=== PATIENT | female | born 1940 | race African-American/Black ===

== ENCOUNTER → 2017-05-12 | Outpatient (CLI) | payer OTHER, MEDICARE | END | disposition home or self-care (01) | LOC: MAMMO 07:50 | DX: Z12.31 Encounter for screening mammogram for malignant neoplasm of breast (principal) | CPT/HCPCS: 77067 ==

== ENCOUNTER → 2018-05-13 | Outpatient (CLI) | payer MEDICARE, OTHER ==
[2017-01-14 15:00] VITALS: BP 150/75
[~2018-05-13] MED LIST: AMLO10TA4 PO; ASPI-630 PO; ATOR10TA PO; CALC500T54 PO; CYAN50TA PO; KORE100C PO; LACT1TAB3 PO; LEVO100T5 PO; LOSA1TAB22 PO; METF500T16 PO; MULT-246 PO; OMEG300C PO; OXYB5TAB7 PO; PANT40TA3 PO; SENN-37 PO
--- NOTE | 2018-05-17 09:28 | RAD ---
DATE: 05/13/2018 10:00 AM EXAM: MAMMO BLADIMIR SCREENING BILATERAL HISTORY: routine screening evaluation. COMPARISON: Prior mammographic imaging dating back to 04/21/2014 Bilateral CC and MLO views of the breasts were performed. Bilateral breast tomosynthesis was performed in CC and MLO projections. This study was interpreted with the benefit of Computerized Aided Detection (CAD ). Breast Density: The breast parenchyma shows scattered fibroglandular densities. Breast parenchyma level B. FINDINGS: The parenchymal pattern appears stable. Benign calcifications are present. No suspicious masses, microcalcifications or architectural distortion is present to suggest malignancy in either breast. The visualized axillae are unremarkable. IMPRESSION: No mammographic evidence of malignancy. BI-RADS CATEGORY: 2 BENIGN FINDING(S) RECOMMENDED FOLLOW-UP: 12M 12 MONTH FOLLOW-UP Annual screening mammography is recommended, unless clinically indicated sooner based on symptoms or change in physical exam. PQRS compliance statement: Patient information was entered into a reminder system with a target due date for the next mammogram. Mammography is a sensitive method for finding small breast cancers, but it does not detect them all and is not a substitute for careful clinical examination. A negative mammogram does not negate a clinically suspicious finding and should not result in delay in biopsying a clinically suspicious abnormality. "Our facility is accredited by the [employer] Mammography Program." SUNNYD
== END | disposition home or self-care (01) ==
LOC: MAMMO 07:57
PROVIDERS: ATTEND Family Medicine
DX: Z12.31 Encounter for screening mammogram for malignant neoplasm of breast (principal)
CPT/HCPCS: 77063; 77067

== ENCOUNTER 2018-06-24 12:29 | Inpatient (IN) | payer MEDICARE, OTHER ==
[~2018-06-24] VITALS: Ht 165.1 cm; Wt 89.0 kg
[2018-06-24] MEDS ORDERED: ASPIRIN 325 MG TABLET PO ONE (13:00)
[2018-06-24 13:02] LABS: BILIRUBIN,URINE NEGATIVE (NEG); CLARITY,URINE CLEAR; COLOR,URINE YELLOW; NITRITE,URINE NEGATIVE (NEG); PROTEIN,URINE NEGATIVE (NEG-TRACE); UROBILINOGEN,URINE 0.2 mg/dL (0.2 mg/dL)
[2018-06-24 13:07] LABS: BARBITURATES NEG (NEG); BENZODIAZEPINES NEG (NEG); CANNABINOIDS NEG (NEG); COCAINE NEG (NEG); METHADONE NEG (NEG); OPIATES NEG (NEG); PHENCYCLIDINE NEG (NEG)
[2018-06-24 13:09] LABS: AMPHETAMINE/METHAMPHETAMINE NEG (NEG)
[2018-06-24 13:18] LABS: BASO % 1 % (0-3); EOS # 0.1 x10^3/uL (0.0-0.7); EOS % 2 % (0-3); HEMATOCRIT 39.6 % (36.0-47.0); HEMOGLOBIN 12.8 g/dL (12.0-15.5); LYMPH # 2.1 x10^3/uL (1.0-4.8); LYMPH % 38 % (24-48); MEAN CORPUSCULAR HEMOGLOBIN 27 pg (25-35); MEAN CORPUSCULAR HGB CONC 32 g/dL (31-37); MEAN CORPUSCULAR VOLUME 82 fL (79-100); MONO # 0.4 x10^3/uL (0.0-1.1); MONO % 7 % (0-9); NEUT # 2.9 x10^3uL (1.8-7.7); NEUT % 53 % (31-73); PLATELET COUNT 209 x10^3/uL (140-400); RED BLOOD COUNT 4.82 x10^6/uL (3.50-5.40); RED CELL DISTRIBUTION WIDTH 14.2 % (11.5-14.5); WHITE BLOOD COUNT 5.5 x10^3/uL (4.0-11.0)
--- NOTE | 2018-06-24 13:24 | PHYS DOC ---
Past Medical History Past Medical History: Diabetes-Type II, Hypertension, Hypothyroid (ANNABELLE NATH APRN) Past Surgical History: Hysterectomy, Other Additional Past Surgical Histo: thyroidectomy; hemorrhoidectomy (ANNABELLE NATH APRN) Alcohol Use: None Drug Use: None (ANNABELLE NATH APRN) Adult General Chief Complaint Chief Complaint: CHEST PAIN HPI HPI Patient is a 78 year old female with history of diabetes type 2, hypertension, hypothyroidism, who presents to the ED today complaining of chest discomfort. Patient [place] the [place]. She states before lunch and after lunch she developed a sensation of chest discomfort described as "you know how you feel when you climb a hill" ..."shortness of air". Patient unable to write her chest discomfort. From her description it sounds like symptoms are worse on exertion. Denies any fever, coughing or congestion. PCP Dr. Vaca (ANNABELLE NATH APRN) Review of Systems Review of Systems Constitutional: Denies fever or chills [] Eyes: Denies change in visual acuity, redness, or eye pain [] HENT: Denies nasal congestion or sore throat [] Respiratory: Denies cough or shortness of breath [] Cardiovascular: Reports chest discomfort GI: Denies abdominal pain, nausea, vomiting, bloody stools or diarrhea [] : Denies dysuria or hematuria [] Musculoskeletal: Denies back pain or joint pain [] Integument: Denies rash or skin lesions [] Neurologic: Denies headache, focal weakness or sensory changes [] All other systems were reviewed and found to be within normal limits, except as documented in this note. (ANNABELLE NATH APRN) Current Medications Current Medications Current Medications Medications (Trade) Dose Ordered Sig/Wood Start Time Stop Time Status Last Admin Dose Admin Aspirin (Angel Aspirin) 325 mg 1X ONCE 06/24/18 13:00 06/24/18 13:01 Cancel Aspirin (Children'S Aspirin) 162 mg 1X ONCE 06/24/18 14:00 06/24/18 14:04 DC 06/24/18 14:07 162 MG (JAMIN BAXTER MD) Allergies Allergies Allergies Coded Allergies Type Severity Reaction Last Updated Verified Cephalexin Monohydrate Allergy Intermediate Rash 01/29/15 Yes Penicillins Allergy Intermediate Rash 01/29/15 Yes (JAMIN BAXTER MD) Physical Exam Physical Exam Constitutional: Well developed, well nourished, no acute distress, non-toxic appearance. [] HENT: Normocephalic, atraumatic, bilateral external ears normal, oropharynx moist, no oral exudates, nose normal. [] Eyes: PERRLA, EOMI, conjunctiva normal, no discharge. [] Neck: Normal range of motion, no tenderness, supple, no stridor. [] Cardiovascular:Heart rate regular rhythm, no murmur [] Lungs & Thorax: Bilateral breath sounds clear to auscultation [] Abdomen: Bowel sounds normal, soft, no tenderness, no masses, no pulsatile masses. [] Skin: Warm, dry, no erythema, no rash. [] Back: No tenderness, no CVA tenderness. [] Extremities: No tenderness, no cyanosis, no clubbing, ROM intact, no edema. [] Neurologic: Alert and oriented X 3, normal motor function, normal sensory function, no focal deficits noted. [] Psychologic: Affect normal, judgement normal, mood normal. [] (ANNABELLE NATH APRN) Current Patient Data Vital Signs Vital Signs Date Time Temp Pulse Resp B/P (MAP) Pulse Ox O2 Delivery O2 Flow Rate FiO2 06/24/18 15:30 84 20 160/75 (103) 99 Room Air 06/24/18 12:35 98.0 98.0 (JAMIN BAXTER MD) Lab Values Laboratory Tests Test 06/24/18 12:40 06/24/18 13:00 Urine Collection Type Unknown Urine Color Yellow Urine Clarity Clear Urine pH 6.0 Urine Specific [place] 1.010 Urine Protein Negative mg/dL (NEG-TRACE) Urine Glucose (UA) Negative mg/dL (NEG) Urine Ketones (Stick) Negative mg/dL (NEG) Urine Blood Negative (NEG) Urine Nitrite Negative (NEG) Urine Bilirubin Negative (NEG) Urine Urobilinogen Dipstick 0.2 mg/dL (0.2 mg/dL) Urine Leukocyte Esterase Negative (NEG) Urine RBC 1-2 /HPF (0-2) Urine WBC 1-4 /HPF (0-4) Urine Squamous Epithelial Cells Mod /LPF Urine Bacteria Moderate /HPF (0-FEW) Urine Opiates Screen Neg (NEG) Urine Methadone Screen Neg (NEG) Urine Barbiturates Neg (NEG) Urine Phencyclidine Screen Neg (NEG) Urine Amphetamine/Methamphetamine Neg (NEG) Urine Benzodiazepines Screen Neg (NEG) Urine Cocaine Screen Neg (NEG) Urine Cannabinoids Screen Neg (NEG) Urine Ethyl Alcohol Neg (NEG) White Blood Count 5.5 x10^3/uL (4.0-11.0) Red Blood Count 4.82 x10^6/uL (3.50-5.40) Hemoglobin 12.8 g/dL (12.0-15.5) Hematocrit 39.6 % (36.0-47.0) Mean Corpuscular Volume 82 fL (79-100) Mean Corpuscular Hemoglobin 27 pg (25-35) Mean Corpuscular Hemoglobin Concent 32 g/dL (31-37) Red Cell Distribution Width 14.2 % (11.5-14.5) Platelet Count 209 x10^3/uL (140-400) Neutrophils (%) (Auto) 53 % (31-73) Lymphocytes (%) (Auto) 38 % (24-48) Monocytes (%) (Auto) 7 % (0-9) Eosinophils (%) (Auto) 2 % (0-3) Basophils (%) (Auto) 1 % (0-3) Neutrophils # (Auto) 2.9 x10^3uL (1.8-7.7) Lymphocytes # (Auto) 2.1 x10^3/uL (1.0-4.8) Monocytes # (Auto) 0.4 x10^3/uL (0.0-1.1) Eosinophils # (Auto) 0.1 x10^3/uL (0.0-0.7) Basophils # (Auto) 0.0 x10^3/uL (0.0-0.2) Prothrombin Time 14.0 SEC (11.7-14.0) Prothrombin Time INR 1.1 (0.8-1.1) D-Dimer (Lia) 0.40 ug/mlFEU (0.00-0.50) Sodium Level 143 mmol/L (136-145) Potassium Level 3.0 mmol/L (3.5-5.1) L Chloride Level 103 mmol/L (98-107) Carbon Dioxide Level 30 mmol/L (21-32) Anion Gap 10 (6-14) Blood Urea Nitrogen 9 mg/dL (7-20) Creatinine 1.0 mg/dL (0.6-1.0) Estimated GFR (Cockcroft-Gault) 64.9 BUN/Creatinine Ratio 9 (6-20) Glucose Level 124 mg/dL (70-99) H Calcium Level 8.9 mg/dL (8.5-10.1) Magnesium Level 1.8 mg/dL (1.8-2.4) Total Bilirubin 0.4 mg/dL (0.2-1.0) Aspartate Amino Transferase (AST) 21 U/L (15-37) Alanine Aminotransferase (ALT) 24 U/L (14-59) Alkaline Phosphatase 85 U/L (46-116) Creatine Kinase 460 U/L (26-192) H Creatine Kinase MB (Mass) 4.8 ng/mL (0.0-3.6) H Creatine Kinase MB Relative Index 1.0 % (0-4) Troponin I Quantitative < 0.017 ng/mL (0.000-0.055) JA-[id number]-[id number]-Type Natriuretic Peptide 11 pg/mL (0-449) Total Protein 8.0 g/dL (6.4-8.2) Albumin 3.7 g/dL (3.4-5.0) Albumin/Globulin Ratio 0.9 (1.0-1.7) L Lipase 95 U/L (73-393) Thyroid Stimulating Hormone (TSH) 3.108 uIU/mL (0.358-3.74) Ethyl Alcohol Level < 10 mg/dL (0-10) Laboratory Tests 06/24/18 13:00 Laboratory Tests 06/24/18 13:00 (JAMIN BAXTER MD) EKG EKG [] (ANNABELLE NATH APRN) Radiology/Procedures Radiology/Procedures []PROCEDURE: PORTABLE CHEST 1V Portable chest, 06/24/2018: HISTORY: Chest pain Comparison is made to a study from 01/13/2017. The heart is at the upper limits of normal in size. There is mild tortuosity of the thoracic aorta. No pulmonary infiltrate is seen. There is no evidence of pleural fluid. Surgical clips are present in the lower neck on the left. IMPRESSION: No acute cardiopulmonary abnormality is detected. Electronically signed by: Jhonatan Perez MD (06/24/2018 1:21 PM) [facility] DICTATED and SIGNED BY: JHONATAN PEREZ MD DATE: 06/24/18 4137 (ANNABELLE NATH APRN) Course & Med Decision Making Course & Med Decision Making Pertinent Labs and Imaging studies reviewed. (See chart for details) This is a 78-year-old female patient presenting to the ED today complaining of chest discomfort that began prior to coming to the ED [place] the [place]. Patient states the pain began prior to having lunch then continued after lunch. EKG, chest x-ray, troponin is normal. CK 460, CK-MB mass 4.8, Potassium 3.0, patient was given oral potassium replacement as well as IV fluids. Consulted with Dr. Vaca concerning patient's admission, he states he has never seen patient patient was seen by the mid-level in his clinic. He requested patient be admitted under the hospitalist. Consulted with Dr. Wiggins who accepted patient for admission Routine consult placed for cardiology (ANNABELLE NATH APRN) Course & Med Decision Making Staff Physician Addendum: I was working in the ER during the course of this patient's visit. I was available for consultation as needed, but I was not directly involved in the care of this patient. (JAMIN BAXTER MD) Dragon Disclaimer Dragon Disclaimer This electronic medical record was generated, in whole or in part, using a voice recognition dictation system. (ANNABELLE NATH APRN) Departure Departure Impression: Primary Impression: Chest pain Additional Impression: Hypokalemia Disposition: ADMITTED INPATIENT Condition: STABLE Referrals: MARY VACA MD (PCP) Problem Qualifiers Primary Impression: Chest pain Chest pain type: unspecified Qualified Codes: R07.9 - Chest pain, unspecified ANNABELLE NATH APRN Jun 24, 2018 13:24 JAMIN BAXTER MD Jun 24, 2018 17:37
[2018-06-24 13:29] LABS: SQUAMOUS EPITHELIAL CELL,UR MOD /LPF
[2018-06-24 13:30] LABS: BACTERIA,URINE MODERATE /HPF (0-FEW)
[2018-06-24 13:32] LABS: ALBUMIN 3.7 g/dL (3.4-5.0); ALBUMIN/GLOBULIN RATIO 0.9 (1.0-1.7); CALCIUM 8.9 mg/dL (8.5-10.1); GFR 64.9; MAGNESIUM 1.8 mg/dL (1.8-2.4); TOTAL BILIRUBIN 0.4 mg/dL (0.2-1.0)
[2018-06-24 13:52] LABS: D-DIMER 0.4 ug/mlFEU (0.00-0.50)
[2018-06-24] MEDS ORDERED: ASPIRIN CHEWABLE 81 MG TABLET. PO ONE (14:00)
[2018-06-24] MEDS ORDERED: LEVO88TA4 PO (15:48)
[2018-06-24] MEDS ORDERED: POTA20TA82 PO (15:48)
[2018-06-24] MEDS ORDERED: ATOR20TA58 PO (15:48)
[2018-06-24] MEDS ORDERED: METF500T16 PO (15:48)
[2018-06-24] MEDS ORDERED: ONDANSETRON PF 4 MG/2 ML VIAL. IV PRN (16:30)
[2018-06-24] MEDS ORDERED: IV NORMAL SALINE 1000ML BAG 1,000 ML IV ONE ×2 (16:30)
[2018-06-24] MEDS ORDERED: MORPHINE SULFATE 4 MG/ML VIAL. IV PRN (16:30)
[2018-06-24] MEDS ORDERED: POTASSIUM CHLORIDE 20 MEQ TABLET.ER. PO ONE ×2 (16:30→18:30)
[2018-06-24] MEDS ORDERED: ACETAMINOPHEN 325 MG TABLET. PO PRN (16:30)
[2018-06-24] MEDS ORDERED: NITROGLYCERIN SUBLINGUAL 0.4 MG BOTTLE OF 25. SL PRN (16:30)
--- NOTE | 2018-06-24 18:45 | HP ---
ADMIT DATE: 06/24/2018 CHIEF COMPLAINT: Chest pain. HISTORY OF PRESENT ILLNESS: The patient is a pleasant 78-year-old female who presented to the ER with chest pain, rates it a 7/10. She has associated nausea. It has been occurring for a couple of days, got worse today. She tried taking some home meds, but that did not work. She states she [place] the [place] today [place] and then she developed a sensation of shortness of breath. I have discussed the case with ER physician. We are going to admit the patient and consult Cardiology. PAST MEDICAL HISTORY: Diabetes, hypertension, hypothyroidism, hysterectomy, thyroidectomy, hemorrhoidectomy. ALLERGIES: CEPHALEXIN AND PENICILLIN. FAMILY HISTORY: Coronary artery disease. SOCIAL HISTORY: She is retired. She does not drink, smoke or take drugs. MEDICATIONS: Reviewed. She is on 15 including atorvastatin, fish oil, Norvasc, losartan, aspirin, calcium, potassium, senna, Protonix, probiotics, metformin, Synthroid, oxybutynin, cyanocobalamin. REVIEW OF SYSTEMS: GENERAL: No history of weight change, weakness or fevers. SKIN: No bruising, hair changes or rashes. EYES: No blurred, double or loss of vision. NOSE AND THROAT: No history of nosebleeds, hoarseness or sore throat. HEART: No history of palpitations, chest pain or shortness of breath on exertion. LUNGS: Denies cough, hemoptysis, wheezing or shortness of breath. GASTROINTESTINAL: Denies changes in appetite, nausea, vomiting, diarrhea or constipation. GENITOURINARY: No history of frequency, urgency, hesitancy or nocturia. NEUROLOGIC: Denies history of numbness, tingling, tremor or weakness. PSYCHIATRIC: No history of panic, anxiety or depression. ENDOCRINE: No history of heat or cold intolerance, polyuria or polydipsia. EXTREMITIES: Denies muscle weakness, joint pain, pain on walking or stiffness. PHYSICAL EXAMINATION: VITAL SIGNS: Temperature afebrile, pulse 98, respirations 18, blood pressure 131/70. GENERAL: She is alert, cooperative. HEART: Normal S1, S2. LUNGS: Clear. ABDOMEN: Soft. EXTREMITIES: No edema. SKIN: No rash. ENDOCRINE: No thyromegaly. LYMPHATICS: No cervical nodes. HEMATOPOIETIC: No bruising. LABORATORY DATA: Hematology is normal. Electrolytes are normal. Troponin is 0. ASSESSMENT AND PLAN: Chest pain, rule out coronary artery disease. The patient is being admitted. We will check serial enzymes, serial EKGs. Consult Cardiology. Home meds, PT, OT, frequent labs. ERIC NARAYAN DO DR: SOUTH/igor JOB#: [id number] / [id number]
[2018-06-24 19:10] VITALS: BP 117/59
[2018-06-24 23:18] VITALS: BP 123/63
[2018-06-25 03:42] VITALS: BP 129/64
[2018-06-25 04:17] LABS: BASO % 1 % (0-3); EOS # 0.1 x10^3/uL (0.0-0.7); EOS % 2 % (0-3); HEMATOCRIT 34.6 % (36.0-47.0); HEMOGLOBIN 11.2 g/dL (12.0-15.5); LYMPH # 2.1 x10^3/uL (1.0-4.8); LYMPH % 39 % (24-48); MEAN CORPUSCULAR HEMOGLOBIN 27 pg (25-35); MEAN CORPUSCULAR HGB CONC 32 g/dL (31-37); MEAN CORPUSCULAR VOLUME 83 fL (79-100); MONO # 0.5 x10^3/uL (0.0-1.1); MONO % 9 % (0-9); NEUT # 2.6 x10^3uL (1.8-7.7); NEUT % 49 % (31-73); PLATELET COUNT 178 x10^3/uL (140-400); RED BLOOD COUNT 4.17 x10^6/uL (3.50-5.40); RED CELL DISTRIBUTION WIDTH 14.3 % (11.5-14.5); WHITE BLOOD COUNT 5.3 x10^3/uL (4.0-11.0)
[2018-06-25 04:25] LABS: GFR 64.9; POTASSIUM 3.6 mmol/L (3.5-5.1)
[2018-06-25 07:00] VITALS: BP 127/72
[2018-06-25] MEDS ORDERED: PANTOPRAZOLE 40 MG TABLET.DR. PO SCH (07:30)
[2018-06-25] MEDS ORDERED: POTASSIUM CHLORIDE 20 MEQ TABLET.ER. PO SCH (08:00)
[2018-06-25] MEDS ORDERED: metFORMIN 500 MG TABLET PO SCH (08:00)
[2018-06-25] MEDS ORDERED: CALCIUM CARBONATE 500 MG TABLET PO SCH (08:00)
[2018-06-25 08:56] LABS: CHOLESTEROL/HDL RATIO 2.1
[2018-06-25] MEDS ORDERED: hydroCHLOROthiazide 25 MG TABLET PO SCH (09:00)
[2018-06-25] MEDS ORDERED: CYANOCOBALAMIN (VITAMIN B-12) 100 MCG TABLET PO SCH (09:00)
[2018-06-25] MEDS ORDERED: LACTOBACILLUS RHAMNOSUS GG 1 CAPSULE. PO SCH (09:00)
[2018-06-25] MEDS ORDERED: OMEGA-3 FATTY ACIDS/FISH OIL 1,000 MG CAPSULE. PO SCH (09:00)
[2018-06-25] MEDS ORDERED: amLODIPine BESYLATE 10 MG TABLET PO SCH (09:00)
[2018-06-25] MEDS ORDERED: ASPIRIN CHEWABLE 81 MG TABLET. PO SCH (09:00)
[2018-06-25] MEDS ORDERED: SENNOSIDES/DOCUSATE 8.6/50MG TABLET. PO SCH (09:00)
[2018-06-25] MEDS ORDERED: OXYBUTYNIN CHLORIDE 5 MG TABLET PO SCH (09:00)
[2018-06-25] MEDS ORDERED: LOSARTAN POTASSIUM 50 MG TABLET. PO SCH (09:00)
[2018-06-25] MEDS ORDERED: MULTIVITAMIN with MINERAL TABLET. PO SCH (09:00)
--- NOTE | 2018-06-25 10:22 | PDOC2 ---
CARDIAC CONSULT DATE OF CONSULT Date of Consult DATE: 06/25/18 TIME: 10:07 REASON FOR CONSULT Reason for Consult: Chest pain REFERRING PHYSICIAN Referring Physician: Otis SOURCE Source: Chart review, Patient HISTORY OF PRESENT ILLNESS HISTORY OF PRESENT ILLNESS This is a pleasant 78 yo female admitted for complains of chest pain. Reports that she finished eating at the restaurant and walking towards the car she started having midchest pressure, nonradiating. No other associated symptoms at that time such as nausea, jaw tightness, diaphoresis or SOA. She has stairs at home and denies any HICKS, nor exertional CP. No recent falls or injury. Reports no previous chest pain. No prior CAD, VTE. Verbalized med compliance including her PPI for gerd. Denies any frequent NSAID therapy and no hx of PUD. PAST MEDICAL HISTORY Past Medical History Cardiovascular: HTN, HLP Pulmonary: No pertinent hx CENTRAL NERVOUS SYSTEM: Other (No pertinent history) GI: GERD Heme/Onc: No pertinent hx Hepatobiliary: No pertinent hx Psych: No pertinent hx Musculoskeletal: Osteoarthritis, lumbar stenosis Rheumatologic: No pertinent hx Infectious disease: No pertinent hx ENT: No pertinent hx Renal/: left adrenal adenoma Endocrine: Diabetes (2), hypothyroidism PAST SURGICAL HISTORY Past Surgical History partial thyroidectomy, left shoulder cyst removal FAMILY HISTORY Family History: Coronary Artery Disease (father SCD at 56 yo) SOCIAL HISTORY Smoke: No ALCOHOL: none Drugs: None Lives: with Family CURRENT MEDICATIONS CURRENT MEDICATIONS Current Medications Medications (Trade) Dose Ordered Sig/Wood Route PRN Reason Start Time Stop Time Status Last Admin Dose Admin Aspirin (Children'S Aspirin) 162 mg 1X ONCE PO 06/24/18 14:00 06/24/18 14:04 DC 06/24/18 14:07 Potassium Chloride (Klor-Con) 40 meq 1X ONCE PO 06/24/18 18:30 06/24/18 18:31 DC 06/24/18 21:24 ALLERGIES ALLERGIES: Coded Allergies: Cephalexin Monohydrate (Verified Allergy, Intermediate, Rash, 01/29/15) Penicillins (Verified Allergy, Intermediate, Rash, 01/29/15) ROS Review of System 14 point ROS evaluated with pertinent positives noted per HPI PHYSICAL EXAM General: Alert, Oriented X3, Cooperative, No acute distress HEENT: Atraumatic, Mucous membr. moist/pink Lungs: Clear to auscultation, Normal air movement Heart: Regular rate (SR), Normal S1, Normal S2, Other (2/6 LLS border) Abdomen: Soft, No tenderness Extremities: No cyanosis, No edema Skin: No breakdown, No significant lesion Neuro: Normal speech, Sensation intact Psych/Mental Status: Mental status NL, Mood NL MUSCULOSKELETAL: Osteoarthritic changes both hands VITALS VITALS Vital Signs Date Time Temp Pulse Resp B/P (MAP) Pulse Ox O2 Delivery O2 Flow Rate FiO2 06/25/18 07:00 97.7 60 16 127/72 (90) 95 Room Air 97.7 LABS Lab: Laboratory Tests Test 06/24/18 12:40 06/24/18 13:00 06/24/18 17:15 06/24/18 20:53 Urine Collection Type Unknown Urine Color Yellow Urine Clarity Clear Urine pH 6.0 Urine Specific [place] 1.010 Urine Protein Negative mg/dL (NEG-TRACE) Urine Glucose (UA) Negative mg/dL (NEG) Urine Ketones (Stick) Negative mg/dL (NEG) Urine Blood Negative (NEG) Urine Nitrite Negative (NEG) Urine Bilirubin Negative (NEG) Urine Urobilinogen Dipstick 0.2 mg/dL (0.2 mg/dL) Urine Leukocyte Esterase Negative (NEG) Urine RBC 1-2 /HPF (0-2) Urine WBC 1-4 /HPF (0-4) Urine Squamous Epithelial Cells Mod /LPF Urine Bacteria Moderate /HPF (0-FEW) Urine Opiates Screen Neg (NEG) Urine Methadone Screen Neg (NEG) Urine Barbiturates Neg (NEG) Urine Phencyclidine Screen Neg (NEG) Urine Amphetamine/Methamphetamine Neg (NEG) Urine Benzodiazepines Screen Neg (NEG) Urine Cocaine Screen Neg (NEG) Urine Cannabinoids Screen Neg (NEG) Urine Ethyl Alcohol Neg (NEG) White Blood Count 5.5 x10^3/uL (4.0-11.0) Red Blood Count 4.82 x10^6/uL (3.50-5.40) Hemoglobin 12.8 g/dL (12.0-15.5) Hematocrit 39.6 % (36.0-47.0) Mean Corpuscular Volume 82 fL (79-100) Mean Corpuscular Hemoglobin 27 pg (25-35) Mean Corpuscular Hemoglobin Concent 32 g/dL (31-37) Red Cell Distribution Width 14.2 % (11.5-14.5) Platelet Count 209 x10^3/uL (140-400) Neutrophils (%) (Auto) 53 % (31-73) Lymphocytes (%) (Auto) 38 % (24-48) Monocytes (%) (Auto) 7 % (0-9) Eosinophils (%) (Auto) 2 % (0-3) Basophils (%) (Auto) 1 % (0-3) Neutrophils # (Auto) 2.9 x10^3uL (1.8-7.7) Lymphocytes # (Auto) 2.1 x10^3/uL (1.0-4.8) Monocytes # (Auto) 0.4 x10^3/uL (0.0-1.1) Eosinophils # (Auto) 0.1 x10^3/uL (0.0-0.7) Basophils # (Auto) 0.0 x10^3/uL (0.0-0.2) Prothrombin Time 14.0 SEC (11.7-14.0) Prothromb Time International Ratio 1.1 (0.8-1.1) D-Dimer (Lia) 0.40 ug/mlFEU (0.00-0.50) Sodium Level 143 mmol/L (136-145) Potassium Level 3.0 mmol/L (3.5-5.1) Chloride Level 103 mmol/L (98-107) Carbon Dioxide Level 30 mmol/L (21-32) Anion Gap 10 (6-14) Blood Urea Nitrogen 9 mg/dL (7-20) Creatinine 1.0 mg/dL (0.6-1.0) Estimated GFR (Cockcroft-Gault) 64.9 BUN/Creatinine Ratio 9 (6-20) Glucose Level 124 mg/dL (70-99) Calcium Level 8.9 mg/dL (8.5-10.1) Magnesium Level 1.8 mg/dL (1.8-2.4) Total Bilirubin 0.4 mg/dL (0.2-1.0) Aspartate Amino Transf (AST/SGOT) 21 U/L (15-37) Alanine Aminotransferase (ALT/SGPT) 24 U/L (14-59) Alkaline Phosphatase 85 U/L (46-116) Creatine Kinase 460 U/L (26-192) Creatine Kinase MB (Mass) 4.8 ng/mL (0.0-3.6) Creatine Kinase MB Relative Index 1.0 % (0-4) Troponin I Quantitative < 0.017 ng/mL (0.000-0.055) < 0.017 ng/mL (0.000-0.055) [id number]-Gdh-A-Type Natriuretic Peptide 11 pg/mL (0-449) Total Protein 8.0 g/dL (6.4-8.2) Albumin 3.7 g/dL (3.4-5.0) Albumin/Globulin Ratio 0.9 (1.0-1.7) Lipase 95 U/L (73-393) Thyroid Stimulating Hormone (TSH) 3.108 uIU/mL (0.358-3.74) Ethyl Alcohol Level < 10 mg/dL (0-10) Glucose (Fingerstick) 129 mg/dL (70-99) Test 06/24/18 21:40 06/25/18 04:00 06/25/18 07:12 Troponin I Quantitative < 0.017 ng/mL (0.000-0.055) White Blood Count 5.3 x10^3/uL (4.0-11.0) Red Blood Count 4.17 x10^6/uL (3.50-5.40) Hemoglobin 11.2 g/dL (12.0-15.5) Hematocrit 34.6 % (36.0-47.0) Mean Corpuscular Volume 83 fL (79-100) Mean Corpuscular Hemoglobin 27 pg (25-35) Mean Corpuscular Hemoglobin Concent 32 g/dL (31-37) Red Cell Distribution Width 14.3 % (11.5-14.5) Platelet Count 178 x10^3/uL (140-400) Neutrophils (%) (Auto) 49 % (31-73) Lymphocytes (%) (Auto) 39 % (24-48) Monocytes (%) (Auto) 9 % (0-9) Eosinophils (%) (Auto) 2 % (0-3) Basophils (%) (Auto) 1 % (0-3) Neutrophils # (Auto) 2.6 x10^3uL (1.8-7.7) Lymphocytes # (Auto) 2.1 x10^3/uL (1.0-4.8) Monocytes # (Auto) 0.5 x10^3/uL (0.0-1.1) Eosinophils # (Auto) 0.1 x10^3/uL (0.0-0.7) Basophils # (Auto) 0.0 x10^3/uL (0.0-0.2) Sodium Level 142 mmol/L (136-145) Potassium Level 3.6 mmol/L (3.5-5.1) Chloride Level 104 mmol/L (98-107) Carbon Dioxide Level 31 mmol/L (21-32) Anion Gap 7 (6-14) Blood Urea Nitrogen 11 mg/dL (7-20) Creatinine 1.0 mg/dL (0.6-1.0) Estimated GFR (Cockcroft-Gault) 64.9 Glucose Level 134 mg/dL (70-99) Calcium Level 8.0 mg/dL (8.5-10.1) Triglycerides Level 93 mg/dL (0-150) Cholesterol Level 108 mg/dL (0-200) LDL Cholesterol, Calculated 37 mg/dL (0-100) VLDL Cholesterol, Calculated 19 mg/dL (0-40) Non-HDL Cholesterol Calculated 56 mg/dL (0-129) HDL Cholesterol 52 mg/dL (40-60) Cholesterol/HDL Ratio 2.1 Glucose (Fingerstick) 114 mg/dL (70-99) ECHOCARDIOGRAM ECHOCARDIOGRAM <Conclusion> The left ventricular systolic function is normal and the ejection fraction is within normal range. The Ejection Fraction is 65-70%. There is normal LV segmental wall motion. DATE: 01/14/17 1011 STRESS TEST STRESS TEST Conclusion 1. Abnormal EKG response to vasodilator infusion - rate dependent LBBB noted. 2. Normal perfusion at stress/rest. 3. Normal EF at > 70%. 4. Low risk study DATE: 01/14/17 1133 ASSESSMENT/PLAN ASSESSMENT/PLAN 1. Atypical Chest pain: trop nml. EKG SR without acute changes by comparison 2. HTN: labile initially now controlled 3. HLP: on goal 4. DM2 5. Hypothyroidism 6. Hypokalemia: resolved Recommendations 1. TTE. retrieve EKG. lipids. 2. If no significant changes to TTE then may DC per cardiac standpoint and will arrange for outpt stress test given her significant cardiac risk factors. 3. Continue with secondary prevention measures. SB WHEATLEY APRN Jun 25, 2018 10:22
[2018-06-25] MEDS ORDERED: LEVOTHYROXINE 88 MCG TABLET PO SCH (10:30)
--- NOTE | 2018-06-25 10:49 | CARD ---
MR#: [id number] Date of Study: 06/25/2018 Ordering Physician: ARLINE ANN, Referring Physician: ERIC NARAYAN Tech: Blanche Sommer SUKHJINDER APPROVED REPORT EXAM: Two-dimensional and M-mode echocardiogram with Doppler and color Doppler. Other Information Quality : Technically LimitedHR: 61bpm Rhythm : NSRTechnically limited study due to body habitus. INDICATION Chest Pain 2D DIMENSIONS RVDd2.3 (2.9-3.5cm)Left Atrium(2D)3.1 (1.6-4.0cm) IVSd1.8 (0.7-1.1cm)Aortic Root(2D)3.1 (2.0-3.7cm) LVDd3.5 (3.9-5.9cm)LVOT Diameter2.3 (1.8-2.4cm) PWd1.1 (0.7-1.1cm)LVDs2.3 (2.5-4.0cm) FS (%) 35.2 %SV33.6 ml LVEF(%)65.6 (>50%) Aortic Valve AoV Peak Reece.99.9cm/sAoV VTI23.5cm AO Peak GR.4.0mmHgLVOT Peak Reece.88.3cm/s AO Mean GR.2mmHgAVA (VMAX)3.58cm2 MAL (VTI)3.00cm2 Mitral Valve MV E Rdmfwyps40.0cm/sMV DECEL [id number] MV A Duvqrtwe758.7cm/sE/A Ratio0.6 MV A [id number] Pulmonary Valve PV Peak Vdxlfeij06.8cm/s Tricuspid Valve TR P. [id number]/sRAP WOAKLDVY7mnFv TR Peak Gr.12mbFnSNYX83qpSw LEFT VENTRICLE The left ventricle is normal size. Proximal septal thickening is noted. The left ventricular systolic function is normal. The Ejection Fraction is 60-65%. There is normal LV segmental wall motion. Trans mitral Doppler flow pattern is Grade I-abnormal relaxation pattern. RIGHT VENTRICLE The right ventricle is normal size. There is normal right ventricular wall thickness. The right ventr icular systolic function is normal. ATRIA The left atrium size is normal. The right atrium size is normal. The interatrial septum is intact wit h no evidence for an atrial septal defect or patent foramen ovale as noted on 2-D or Doppler imaging. AORTIC VALVE The aortic valve is normal in structure and function. The aortic valve is trileaflet. Doppler and Col or Flow revealed no significant aortic regurgitation. There is no significant aortic valvular stenosi s. MITRAL VALVE The mitral valve is normal in structure and function. There is no evidence of mitral valve prolapse. There is no mitral valve stenosis. Doppler and Color Flow revealed no mitral valve regurgitation note d. TRICUSPID VALVE The tricuspid valve is normal in structure and function. Doppler and Color Flow revealed trace tricus pid regurgitation. The PA pressure was estimated at 20 mmHg. There is no tricuspid valve prolapse or vegetation. There is no tricuspid valve stenosis. PULMONIC VALVE Pulmonic valve not well visualized. GREAT VESSELS The aortic root is normal in size. The ascending aorta is normal in size. The IVC is normal in size a nd collapses >50% with inspiration. PERICARDIAL EFFUSION There is no evidence of significant pericardial effusion. Critical Notification Critical Value: No <Conclusion> The left ventricular systolic function is normal. The Ejection Fraction is 60-65%. There is normal LV segmental wall motion. Transmitral Doppler flow pattern is Grade I-abnormal relaxation pattern. Trace tricuspid regurgitation. The PA pressure was estimated at 20 mmHg. There is no evidence of significant pericardial effusion. Signed by : Antoine Ayala, Electronically Approved : 06/25/2018 10:49:07
[2018-06-25 11:00] VITALS: BP 146/85
--- NOTE | 2018-06-25 11:45 | PDOC ---
PROGRESS NOTES Chief Complaint Chief Complaint Chest pain, r/o coronary artery disease Diabetes Hypertension Hypothyroidism Hysterectomy, Thyroidectomy Hemorrhoidectomy History of Present Illness History of Present Illness Patient was seen and examined after completing echo this morning. She continues to note slight chest pressure. Cardiology following. Cardiac workup negative. EF >70%. She is hoping to discharge later today. No acute complaints at this time. Vitals Vitals Vital Signs Date Time Temp Pulse Resp B/P (MAP) Pulse Ox O2 Delivery O2 Flow Rate FiO2 06/25/18 11:21 82 146/85 06/25/18 11:00 97.8 18 98 Room Air 97.8 Physical Exam General: Alert, Oriented X3, Cooperative, No acute distress Heart: Regular rate (SR), Normal S1, Normal S2, Other Lungs: Clear, Other (no rhonchi) Abdomen: Soft, No tenderness Extremities: No clubbing, No cyanosis, No edema Skin: No breakdown, No significant lesion Labs LABS Laboratory Tests Test 06/24/18 12:40 06/24/18 13:00 06/24/18 17:15 06/24/18 20:53 Urine Collection Type Unknown Urine Color Yellow Urine Clarity Clear Urine pH 6.0 Urine Specific [place] 1.010 Urine Protein Negative mg/dL (NEG-TRACE) Urine Glucose (UA) Negative mg/dL (NEG) Urine Ketones (Stick) Negative mg/dL (NEG) Urine Blood Negative (NEG) Urine Nitrite Negative (NEG) Urine Bilirubin Negative (NEG) Urine Urobilinogen Dipstick 0.2 mg/dL (0.2 mg/dL) Urine Leukocyte Esterase Negative (NEG) Urine RBC 1-2 /HPF (0-2) Urine WBC 1-4 /HPF (0-4) Urine Squamous Epithelial Cells Mod /LPF Urine Bacteria Moderate /HPF (0-FEW) Urine Opiates Screen Neg (NEG) Urine Methadone Screen Neg (NEG) Urine Barbiturates Neg (NEG) Urine Phencyclidine Screen Neg (NEG) Urine Amphetamine/Methamphetamine Neg (NEG) Urine Benzodiazepines Screen Neg (NEG) Urine Cocaine Screen Neg (NEG) Urine Cannabinoids Screen Neg (NEG) Urine Ethyl Alcohol Neg (NEG) White Blood Count 5.5 x10^3/uL (4.0-11.0) Red Blood Count 4.82 x10^6/uL (3.50-5.40) Hemoglobin 12.8 g/dL (12.0-15.5) Hematocrit 39.6 % (36.0-47.0) Mean Corpuscular Volume 82 fL (79-100) Mean Corpuscular Hemoglobin 27 pg (25-35) Mean Corpuscular Hemoglobin Concent 32 g/dL (31-37) Red Cell Distribution Width 14.2 % (11.5-14.5) Platelet Count 209 x10^3/uL (140-400) Neutrophils (%) (Auto) 53 % (31-73) Lymphocytes (%) (Auto) 38 % (24-48) Monocytes (%) (Auto) 7 % (0-9) Eosinophils (%) (Auto) 2 % (0-3) Basophils (%) (Auto) 1 % (0-3) Neutrophils # (Auto) 2.9 x10^3uL (1.8-7.7) Lymphocytes # (Auto) 2.1 x10^3/uL (1.0-4.8) Monocytes # (Auto) 0.4 x10^3/uL (0.0-1.1) Eosinophils # (Auto) 0.1 x10^3/uL (0.0-0.7) Basophils # (Auto) 0.0 x10^3/uL (0.0-0.2) Prothrombin Time 14.0 SEC (11.7-14.0) Prothromb Time International Ratio 1.1 (0.8-1.1) D-Dimer (Lia) 0.40 ug/mlFEU (0.00-0.50) Sodium Level 143 mmol/L (136-145) Potassium Level 3.0 mmol/L (3.5-5.1) Chloride Level 103 mmol/L (98-107) Carbon Dioxide Level 30 mmol/L (21-32) Anion Gap 10 (6-14) Blood Urea Nitrogen 9 mg/dL (7-20) Creatinine 1.0 mg/dL (0.6-1.0) Estimated GFR (Cockcroft-Gault) 64.9 BUN/Creatinine Ratio 9 (6-20) Glucose Level 124 mg/dL (70-99) Calcium Level 8.9 mg/dL (8.5-10.1) Magnesium Level 1.8 mg/dL (1.8-2.4) Total Bilirubin 0.4 mg/dL (0.2-1.0) Aspartate Amino Transf (AST/SGOT) 21 U/L (15-37) Alanine Aminotransferase (ALT/SGPT) 24 U/L (14-59) Alkaline Phosphatase 85 U/L (46-116) Creatine Kinase 460 U/L (26-192) Creatine Kinase MB (Mass) 4.8 ng/mL (0.0-3.6) Creatine Kinase MB Relative Index 1.0 % (0-4) Troponin I Quantitative < 0.017 ng/mL (0.000-0.055) < 0.017 ng/mL (0.000-0.055) XT-Cip-Y-Type Natriuretic Peptide 11 pg/mL (0-449) Total Protein 8.0 g/dL (6.4-8.2) Albumin 3.7 g/dL (3.4-5.0) Albumin/Globulin Ratio 0.9 (1.0-1.7) Lipase 95 U/L (73-393) Thyroid Stimulating Hormone (TSH) 3.108 uIU/mL (0.358-3.74) Ethyl Alcohol Level < 10 mg/dL (0-10) Glucose (Fingerstick) 129 mg/dL (70-99) Test 06/24/18 21:40 06/25/18 04:00 06/25/18 07:12 Troponin I Quantitative < 0.017 ng/mL (0.000-0.055) White Blood Count 5.3 x10^3/uL (4.0-11.0) Red Blood Count 4.17 x10^6/uL (3.50-5.40) Hemoglobin 11.2 g/dL (12.0-15.5) Hematocrit 34.6 % (36.0-47.0) Mean Corpuscular Volume 83 fL (79-100) Mean Corpuscular Hemoglobin 27 pg (25-35) Mean Corpuscular Hemoglobin Concent 32 g/dL (31-37) Red Cell Distribution Width 14.3 % (11.5-14.5) Platelet Count 178 x10^3/uL (140-400) Neutrophils (%) (Auto) 49 % (31-73) Lymphocytes (%) (Auto) 39 % (24-48) Monocytes (%) (Auto) 9 % (0-9) Eosinophils (%) (Auto) 2 % (0-3) Basophils (%) (Auto) 1 % (0-3) Neutrophils # (Auto) 2.6 x10^3uL (1.8-7.7) Lymphocytes # (Auto) 2.1 x10^3/uL (1.0-4.8) Monocytes # (Auto) 0.5 x10^3/uL (0.0-1.1) Eosinophils # (Auto) 0.1 x10^3/uL (0.0-0.7) Basophils # (Auto) 0.0 x10^3/uL (0.0-0.2) Sodium Level 142 mmol/L (136-145) Potassium Level 3.6 mmol/L (3.5-5.1) Chloride Level 104 mmol/L (98-107) Carbon Dioxide Level 31 mmol/L (21-32) Anion Gap 7 (6-14) Blood Urea Nitrogen 11 mg/dL (7-20) Creatinine 1.0 mg/dL (0.6-1.0) Estimated GFR (Cockcroft-Gault) 64.9 Glucose Level 134 mg/dL (70-99) Calcium Level 8.0 mg/dL (8.5-10.1) Triglycerides Level 93 mg/dL (0-150) Cholesterol Level 108 mg/dL (0-200) LDL Cholesterol, Calculated 37 mg/dL (0-100) VLDL Cholesterol, Calculated 19 mg/dL (0-40) Non-HDL Cholesterol Calculated 56 mg/dL (0-129) HDL Cholesterol 52 mg/dL (40-60) Cholesterol/HDL Ratio 2.1 Glucose (Fingerstick) 114 mg/dL (70-99) Review of Systems Review of Systems Complains of chest pain and weakness. Denies fevers or abdominal pain. Assessment and Plan Assessmemt and Plan Assessment: Chest pain, r/o coronary artery disease Diabetes Hypertension Hypothyroidism Hysterectomy, Thyroidectomy Hemorrhoidectomy Plan: 1. Cardiac monitoring 2. Echo today 3. Cardiac rehab 4. Monitor labs 5. Home medications 6. PT/OT 7. DVT prophylaxis 8. Await cardiology input 9. Hope to discharge later today if ok with cardiology Comment Review of Relevant I have reviewed the following items gela (where applicable) has been applied. Labs Laboratory Tests Test 06/24/18 12:40 06/24/18 13:00 06/24/18 17:15 06/24/18 20:53 Urine Collection Type Unknown Urine Color Yellow Urine Clarity Clear Urine pH 6.0 Urine Specific [place] 1.010 Urine Protein Negative mg/dL (NEG-TRACE) Urine Glucose (UA) Negative mg/dL (NEG) Urine Ketones (Stick) Negative mg/dL (NEG) Urine Blood Negative (NEG) Urine Nitrite Negative (NEG) Urine Bilirubin Negative (NEG) Urine Urobilinogen Dipstick 0.2 mg/dL (0.2 mg/dL) Urine Leukocyte Esterase Negative (NEG) Urine RBC 1-2 /HPF (0-2) Urine WBC 1-4 /HPF (0-4) Urine Squamous Epithelial Cells Mod /LPF Urine Bacteria Moderate /HPF (0-FEW) Urine Opiates Screen Neg (NEG) Urine Methadone Screen Neg (NEG) Urine Barbiturates Neg (NEG) Urine Phencyclidine Screen Neg (NEG) Urine Amphetamine/Methamphetamine Neg (NEG) Urine Benzodiazepines Screen Neg (NEG) Urine Cocaine Screen Neg (NEG) Urine Cannabinoids Screen Neg (NEG) Urine Ethyl Alcohol Neg (NEG) White Blood Count 5.5 x10^3/uL (4.0-11.0) Red Blood Count 4.82 x10^6/uL (3.50-5.40) Hemoglobin 12.8 g/dL (12.0-15.5) Hematocrit 39.6 % (36.0-47.0) Mean Corpuscular Volume 82 fL (79-100) Mean Corpuscular Hemoglobin 27 pg (25-35) Mean Corpuscular Hemoglobin Concent 32 g/dL (31-37) Red Cell Distribution Width 14.2 % (11.5-14.5) Platelet Count 209 x10^3/uL (140-400) Neutrophils (%) (Auto) 53 % (31-73) Lymphocytes (%) (Auto) 38 % (24-48) Monocytes (%) (Auto) 7 % (0-9) Eosinophils (%) (Auto) 2 % (0-3) Basophils (%) (Auto) 1 % (0-3) Neutrophils # (Auto) 2.9 x10^3uL (1.8-7.7) Lymphocytes # (Auto) 2.1 x10^3/uL (1.0-4.8) Monocytes # (Auto) 0.4 x10^3/uL (0.0-1.1) Eosinophils # (Auto) 0.1 x10^3/uL (0.0-0.7) Basophils # (Auto) 0.0 x10^3/uL (0.0-0.2) Prothrombin Time 14.0 SEC (11.7-14.0) Prothromb Time International Ratio 1.1 (0.8-1.1) D-Dimer (Lia) 0.40 ug/mlFEU (0.00-0.50) Sodium Level 143 mmol/L (136-145) Potassium Level 3.0 mmol/L (3.5-5.1) Chloride Level 103 mmol/L (98-107) Carbon Dioxide Level 30 mmol/L (21-32) Anion Gap 10 (6-14) Blood Urea Nitrogen 9 mg/dL (7-20) Creatinine 1.0 mg/dL (0.6-1.0) Estimated GFR (Cockcroft-Gault) 64.9 BUN/Creatinine Ratio 9 (6-20) Glucose Level 124 mg/dL (70-99) Calcium Level 8.9 mg/dL (8.5-10.1) Magnesium Level 1.8 mg/dL (1.8-2.4) Total Bilirubin 0.4 mg/dL (0.2-1.0) Aspartate Amino Transf (AST/SGOT) 21 U/L (15-37) Alanine Aminotransferase (ALT/SGPT) 24 U/L (14-59) Alkaline Phosphatase 85 U/L (46-116) Creatine Kinase 460 U/L (26-192) Creatine Kinase MB (Mass) 4.8 ng/mL (0.0-3.6) Creatine Kinase MB Relative Index 1.0 % (0-4) Troponin I Quantitative < 0.017 ng/mL (0.000-0.055) < 0.017 ng/mL (0.000-0.055) AQ-Qrw-B-Type Natriuretic Peptide 11 pg/mL (0-449) Total Protein 8.0 g/dL (6.4-8.2) Albumin 3.7 g/dL (3.4-5.0) Albumin/Globulin Ratio 0.9 (1.0-1.7) Lipase 95 U/L (73-393) Thyroid Stimulating Hormone (TSH) 3.108 uIU/mL (0.358-3.74) Ethyl Alcohol Level < 10 mg/dL (0-10) Glucose (Fingerstick) 129 mg/dL (70-99) Test 06/24/18 21:40 06/25/18 04:00 06/25/18 07:12 Troponin I Quantitative < 0.017 ng/mL (0.000-0.055) White Blood Count 5.3 x10^3/uL (4.0-11.0) Red Blood Count 4.17 x10^6/uL (3.50-5.40) Hemoglobin 11.2 g/dL (12.0-15.5) Hematocrit 34.6 % (36.0-47.0) Mean Corpuscular Volume 83 fL (79-100) Mean Corpuscular Hemoglobin 27 pg (25-35) Mean Corpuscular Hemoglobin Concent 32 g/dL (31-37) Red Cell Distribution Width 14.3 % (11.5-14.5) Platelet Count 178 x10^3/uL (140-400) Neutrophils (%) (Auto) 49 % (31-73) Lymphocytes (%) (Auto) 39 % (24-48) Monocytes (%) (Auto) 9 % (0-9) Eosinophils (%) (Auto) 2 % (0-3) Basophils (%) (Auto) 1 % (0-3) Neutrophils # (Auto) 2.6 x10^3uL (1.8-7.7) Lymphocytes # (Auto) 2.1 x10^3/uL (1.0-4.8) Monocytes # (Auto) 0.5 x10^3/uL (0.0-1.1) Eosinophils # (Auto) 0.1 x10^3/uL (0.0-0.7) Basophils # (Auto) 0.0 x10^3/uL (0.0-0.2) Sodium Level 142 mmol/L (136-145) Potassium Level 3.6 mmol/L (3.5-5.1) Chloride Level 104 mmol/L (98-107) Carbon Dioxide Level 31 mmol/L (21-32) Anion Gap 7 (6-14) Blood Urea Nitrogen 11 mg/dL (7-20) Creatinine 1.0 mg/dL (0.6-1.0) Estimated GFR (Cockcroft-Gault) 64.9 Glucose Level 134 mg/dL (70-99) Calcium Level 8.0 mg/dL (8.5-10.1) Triglycerides Level 93 mg/dL (0-150) Cholesterol Level 108 mg/dL (0-200) LDL Cholesterol, Calculated 37 mg/dL (0-100) VLDL Cholesterol, Calculated 19 mg/dL (0-40) Non-HDL Cholesterol Calculated 56 mg/dL (0-129) HDL Cholesterol 52 mg/dL (40-60) Cholesterol/HDL Ratio 2.1 Glucose (Fingerstick) 114 mg/dL (70-99) Laboratory Tests Test 06/24/18 12:40 06/24/18 13:00 06/24/18 17:15 06/24/18 20:53 Urine Collection Type Unknown Urine Color Yellow Urine Clarity Clear Urine pH 6.0 Urine Specific [place] 1.010 Urine Protein Negative mg/dL (NEG-TRACE) Urine Glucose (UA) Negative mg/dL (NEG) Urine Ketones (Stick) Negative mg/dL (NEG) Urine Blood Negative (NEG) Urine Nitrite Negative (NEG) Urine Bilirubin Negative (NEG) Urine Urobilinogen Dipstick 0.2 mg/dL (0.2 mg/dL) Urine Leukocyte Esterase Negative (NEG) Urine RBC 1-2 /HPF (0-2) Urine WBC 1-4 /HPF (0-4) Urine Squamous Epithelial Cells Mod /LPF Urine Bacteria Moderate /HPF (0-FEW) Urine Opiates Screen Neg (NEG) Urine Methadone Screen Neg (NEG) Urine Barbiturates Neg (NEG) Urine Phencyclidine Screen Neg (NEG) Urine Amphetamine/Methamphetamine Neg (NEG) Urine Benzodiazepines Screen Neg (NEG) Urine Cocaine Screen Neg (NEG) Urine Cannabinoids Screen Neg (NEG) Urine Ethyl Alcohol Neg (NEG) White Blood Count 5.5 x10^3/uL (4.0-11.0) Red Blood Count 4.82 x10^6/uL (3.50-5.40) Hemoglobin 12.8 g/dL (12.0-15.5) Hematocrit 39.6 % (36.0-47.0) Mean Corpuscular Volume 82 fL (79-100) Mean Corpuscular Hemoglobin 27 pg (25-35) Mean Corpuscular Hemoglobin Concent 32 g/dL (31-37) Red Cell Distribution Width 14.2 % (11.5-14.5) Platelet Count 209 x10^3/uL (140-400) Neutrophils (%) (Auto) 53 % (31-73) Lymphocytes (%) (Auto) 38 % (24-48) Monocytes (%) (Auto) 7 % (0-9) Eosinophils (%) (Auto) 2 % (0-3) Basophils (%) (Auto) 1 % (0-3) Neutrophils # (Auto) 2.9 x10^3uL (1.8-7.7) Lymphocytes # (Auto) 2.1 x10^3/uL (1.0-4.8) Monocytes # (Auto) 0.4 x10^3/uL (0.0-1.1) Eosinophils # (Auto) 0.1 x10^3/uL (0.0-0.7) Basophils # (Auto) 0.0 x10^3/uL (0.0-0.2) Prothrombin Time 14.0 SEC (11.7-14.0) Prothromb Time International Ratio 1.1 (0.8-1.1) D-Dimer (Lia) 0.40 ug/mlFEU (0.00-0.50) Sodium Level 143 mmol/L (136-145) Potassium Level 3.0 mmol/L (3.5-5.1) Chloride Level 103 mmol/L (98-107) Carbon Dioxide Level 30 mmol/L (21-32) Anion Gap 10 (6-14) Blood Urea Nitrogen 9 mg/dL (7-20) Creatinine 1.0 mg/dL (0.6-1.0) Estimated GFR (Cockcroft-Gault) 64.9 BUN/Creatinine Ratio 9 (6-20) Glucose Level 124 mg/dL (70-99) Calcium Level 8.9 mg/dL (8.5-10.1) Magnesium Level 1.8 mg/dL (1.8-2.4) Total Bilirubin 0.4 mg/dL (0.2-1.0) Aspartate Amino Transf (AST/SGOT) 21 U/L (15-37) Alanine Aminotransferase (ALT/SGPT) 24 U/L (14-59) Alkaline Phosphatase 85 U/L (46-116) Creatine Kinase 460 U/L (26-192) Creatine Kinase MB (Mass) 4.8 ng/mL (0.0-3.6) Creatine Kinase MB Relative Index 1.0 % (0-4) Troponin I Quantitative < 0.017 ng/mL (0.000-0.055) < 0.017 ng/mL (0.000-0.055) DT-Dkg-E-Type Natriuretic Peptide 11 pg/mL (0-449) Total Protein 8.0 g/dL (6.4-8.2) Albumin 3.7 g/dL (3.4-5.0) Albumin/Globulin Ratio 0.9 (1.0-1.7) Lipase 95 U/L (73-393) Thyroid Stimulating Hormone (TSH) 3.108 uIU/mL (0.358-3.74) Ethyl Alcohol Level < 10 mg/dL (0-10) Glucose (Fingerstick) 129 mg/dL (70-99) Test 06/24/18 21:40 06/25/18 04:00 06/25/18 07:12 Troponin I Quantitative < 0.017 ng/mL (0.000-0.055) White Blood Count 5.3 x10^3/uL (4.0-11.0) Red Blood Count 4.17 x10^6/uL (3.50-5.40) Hemoglobin 11.2 g/dL (12.0-15.5) Hematocrit 34.6 % (36.0-47.0) Mean Corpuscular Volume 83 fL (79-100) Mean Corpuscular Hemoglobin 27 pg (25-35) Mean Corpuscular Hemoglobin Concent 32 g/dL (31-37) Red Cell Distribution Width 14.3 % (11.5-14.5) Platelet Count 178 x10^3/uL (140-400) Neutrophils (%) (Auto) 49 % (31-73) Lymphocytes (%) (Auto) 39 % (24-48) Monocytes (%) (Auto) 9 % (0-9) Eosinophils (%) (Auto) 2 % (0-3) Basophils (%) (Auto) 1 % (0-3) Neutrophils # (Auto) 2.6 x10^3uL (1.8-7.7) Lymphocytes # (Auto) 2.1 x10^3/uL (1.0-4.8) Monocytes # (Auto) 0.5 x10^3/uL (0.0-1.1) Eosinophils # (Auto) 0.1 x10^3/uL (0.0-0.7) Basophils # (Auto) 0.0 x10^3/uL (0.0-0.2) Sodium Level 142 mmol/L (136-145) Potassium Level 3.6 mmol/L (3.5-5.1) Chloride Level 104 mmol/L (98-107) Carbon Dioxide Level 31 mmol/L (21-32) Anion Gap 7 (6-14) Blood Urea Nitrogen 11 mg/dL (7-20) Creatinine 1.0 mg/dL (0.6-1.0) Estimated GFR (Cockcroft-Gault) 64.9 Glucose Level 134 mg/dL (70-99) Calcium Level 8.0 mg/dL (8.5-10.1) Triglycerides Level 93 mg/dL (0-150) Cholesterol Level 108 mg/dL (0-200) LDL Cholesterol, Calculated 37 mg/dL (0-100) VLDL Cholesterol, Calculated 19 mg/dL (0-40) Non-HDL Cholesterol Calculated 56 mg/dL (0-129) HDL Cholesterol 52 mg/dL (40-60) Cholesterol/HDL Ratio 2.1 Glucose (Fingerstick) 114 mg/dL (70-99) Medications Current Medications Aspirin (Angel Aspirin) 325 mg 1X ONCE PO ; Start 06/24/18 at 13:00; Stop 06/24 at 13:01; Status Cancel Aspirin (Children'S Aspirin) 162 mg 1X ONCE PO Last administered on 06/24/18at 14:07; Start 06/24/18 at 14:00; Stop 06/24/18 at 14:04; Status DC Ondansetron HCl (Zofran) 4 mg PRN Q8HRS PRN IV NAUSEA/VOMITING; Start 06/24/18 at 16:30; Stop 06/25/18 at 16:29 Morphine Sulfate (Morphine Sulfate) 2 mg PRN Q2HR PRN IV PAIN; Start 06/24/18 at 16:30 Acetaminophen (Tylenol) 650 mg PRN Q4HRS PRN PO FEVER; Start 06/24/18 at 16:30 ; Stop 06/25/18 at 16:29 Nitroglycerin (Nitrostat) 0.4 mg PRN Q5MIN PRN SL CHEST PAIN; Start 06/24/18 at 16:30; Stop 06/25/18 at 16:29 Potassium Chloride (Klor-Con) 40 meq 1X ONCE PO ; Start 06/24/18 at 16:30; Stop 06/24/18 at 16:31; Status DC Potassium Chloride (Klor-Con) 40 meq 1X ONCE PO Last administered on at 21:24; Start 06/24/18 at 18:30; Stop 06/24/18 at 18:31; Status DC Sodium Chloride 1,000 ml @ 1,000 mls/hr 1X ONCE IV ; Start 06/24/18 at 16:30; Stop 06/24/18 at 17:29; Status DC Sodium Chloride 1,000 ml @ 125 mls/hr 1X ONCE IV ; Start 06/24/18 at 16:30; Stop 06/25/18 at 00:29; Status DC Amlodipine Besylate (Norvasc) 10 mg DAILY PO Last administered on 06/25/18at 11: 17; Start 06/25/18 at 09:00 Aspirin (Children'S Aspirin) 81 mg DAILY PO Last administered on 06/25/18at 11: 18; Start 06/25/18 at 09:00 Atorvastatin Calcium (Lipitor) 20 mg HS PO ; Start 06/25/18 at 21:00 Levothyroxine Sodium (Synthroid) 88 mcg DAILY06 PO ; Start 06/25/18 at 10:30 Oxybutynin Chloride (Ditropan) 10 mg DAILY PO ; Start 06/25/18 at 09:00 Pantoprazole Sodium (Protonix) 40 mg DAILYAC PO ; Start 06/25/18 at 07:30 Senna/Docusate Sodium (Senna Plus) 1 tab BID PO ; Start 06/25/18 at 09:00 Calcium Carbonate/ Glycine (Oscal) 500 mg DAILY08 PO ; Start 06/25/18 at 08:00 Cyanocobalamin (Vitamin B-12) 50 mcg DAILY PO Last administered on 06/25/18at 11 :19; Start 06/25/18 at 09:00 Lactobacillus Rhamnosus (Culturelle) 1 cap DAILY PO ; Start 06/25/18 at 09:00 Losartan Potassium (Cozaar) 100 mg DAILY PO Last administered on 06/25/18at 11: 21; Start 06/25/18 at 09:00 Metformin HCl (Glucophage) 500 mg BIDWMEALS PO Last administered on 06/25/18at 11:16; Start 06/25/18 at 08:00 Multivitamins (Thera M Plus) 1 tab DAILY PO ; Start 06/25/18 at 09:00 Fish Oil (Fish Oil) 1,000 mg DAILY PO ; Start 06/25/18 at 09:00 Potassium Chloride (Klor-Con) 20 meq DAILYWBKFT PO Last administered on at 11:16; Start 06/25/18 at 08:00 Hydrochlorothiazide (Hydrodiuril) 25 mg DAILY PO Last administered on at 11:21; Start 06/25/18 at 09:00 Active Scripts Active Protonix (Pantoprazole Sodium) 40 Mg Tablet 40 Mg PO DAILYAC Reported Potassium Chloride 20 Meq Tablet.er 20 Meq PO DAILY Levothyroxine Sodium 88 Mcg Tablet 1 Tab PO DAILY Metformin Hcl 500 Mg Tablet 500 Mg PO BIDWMEALS Atorvastatin Calcium 20 Mg Tablet 20 Mg PO DAILY Norvasc (Amlodipine Besylate) 10 Mg Tablet 10 Mg PO DAILY Aspirin 81 Mg Tab.chew 1 Tab PO DAILY Senokot-S Tablet (Sennosides/Docusate Sodium) 1 Each Tablet 1 Each PO Oxybutynin Chloride 5 Mg Tablet 2 Tab PO DAILY Probiotic Complex (Lactobacillus Combo No.6) 1 Each Tablet 1 Each PO DAILY Vitamin B-12 (Cyanocobalamin (Vitamin B-12)) 50 Mcg Tablet 50 Mcg PO DAILY Calcium (Calcium Carbonate) 500 Mg Tab.chew 500 Mg PO DAILY Fish Oil ([place]-3 Fatty Acids) 300 Mg Capsule 300 Mg PO DAILY Multi-Vitamin Daily (Multivitamin) 1 Each Tablet 1 Each PO DAILY Losartan-Hctz 100-25 Mg Tab (Losartan/Hydrochlorothiazide) 1 Each Tablet 1 Each PO DAILY Vitals/I & O Vital Sign - Last 24 Hours 06/24/18 06/24/18 06/24/18 06/24/18 12:35 13:00 13:30 14:00 Temp 98.0 98.0 Pulse 84 86 84 82 Resp 18 18 18 18 B/P (MAP) 187/91 (123) 170/81 (110) 160/81 (107) 152/74 (100) Pulse Ox 98 98 96 97 O2 Delivery Room Air Room Air Room Air Room Air 06/24/18 06/24/18 06/24/18 06/24/18 14:30 15:00 15:30 16:00 Pulse 82 84 84 78 Resp 18 18 20 20 B/P (MAP) 142/71 (94) 173/68 (103) 160/75 (103) 167/76 (106) Pulse Ox 97 97 99 98 O2 Delivery Room Air Room Air Room Air Room Air 06/24/18 06/24/18 06/24/18 06/24/18 16:41 17:40 18:00 19:00 Pulse 84 84 82 Resp 20 20 20 B/P (MAP) 149/72 (97) 131/66 (87) 133/68 (89) Pulse Ox 97 94 96 O2 Delivery Room Air Room Air Room Air Room Air 06/24/18 06/24/18 06/25/18 06/25/18 19:10 23:18 03:42 07:00 Temp 97.9 97.9 97.7 97.7 97.9 97.9 97.7 97.7 Pulse 92 72 68 60 Resp 16 18 20 16 B/P (MAP) 117/59 (78) 123/63 (83) 129/64 (85) 127/72 (90) Pulse Ox 96 97 96 95 O2 Delivery Room Air Room Air Room Air Room Air 06/25/18 06/25/18 06/25/18 06/25/18 08:00 11:00 11:17 11:21 Temp 97.8 97.8 Pulse 68 60 82 Resp 18 B/P (MAP) 146/85 (105) 147/85 146/85 Pulse Ox 98 O2 Delivery Room Air Room Air Intake and Output 06/24/18 06/24/18 06/25/18 15:00 23:00 07:00 Intake Total 600 ml 800 ml Output Total 500 ml Balance 600 ml 300 ml ERIC NARAYAN III DO Jun 25, 2018 11:45
--- NOTE | 2018-06-25 12:21 | DS ---
DATE OF DISCHARGE: 06/25/2018 ADMISSION DIAGNOSIS: Chest discomfort. DISCHARGE DIAGNOSIS: Atypical chest discomfort, suspect gastroesophageal reflux disease. HOSPITAL COURSE: The patient is a pleasant middle-aged female who presented with chest discomfort. She was admitted. We consulted Cardiology. We did serial enzymes, serial EKGs. So far, her workup was negative. I saw and examined her this morning. If okay with Cardiology, we are going to discharge with close outpatient followup. DISPOSITION: Home. ACTIVITY: As tolerated. DIET: Low sodium. MEDICATIONS: Please see the MRAD. TOTAL TIME ON DISCHARGE: 31 minutes. MARIA RL Sebastien NARAYAN DO DR: SOUTH/igor JOB#: [id number] / [id number]
[2018-06-25 15:20] VITALS: BP 147/77
--- NOTE | 2018-06-25 15:24 | NUR ---
Morning medications that were not administered were ones that the patient normally takes at night at home.
--- NOTE | 2018-06-25 16:27 | NUR ---
Discharge Note: KEATON TIMMONS [address] [place] [address] Discharge instructions and discharge home medications reviewed with Patient and a copy given. All questions have been answered and understanding verbalized. The following instructions and handouts were given: chest pain information, discharge instructions. Discontinued lines and drains: Peripheral IV intact. Patient discharged to Home or Self Care with Family Member via Wheelchair at 1627.
[2018-06-25] MEDS ORDERED: ATORVASTATIN CALCIUM 20 MG TABLET PO SCH (21:00)
--- NOTE | 2018-06-28 15:13 | EKG ---
[facility] [address] [place] [address] Test Date: 2018-06-24 Test Time: 12:46:58 Pat Name: KEATON TIMMONS Department: Room: Gender: F Paper Inspector: : 1940 Requested By: ANNABELLE NATH Order Number: [id number] Reading MD: Measurements Intervals [place] Rate: P: SC: QRS: QRSD: T: QT: QTc: Interpretive Statements
== END 2018-06-25 16:27 | disposition home or self-care (01) | DRG 392 ==
LOC: ER 12:29 → ED HOLD 15:33 → 2 NORTH 19:02
PROVIDERS: ADMIT Internal Medicine; ATTEND Internal Medicine
DX: K21.9 Gastro-esophageal reflux disease without esophagitis (principal); E11.9 Type 2 diabetes mellitus without complications; E78.5 Hyperlipidemia, unspecified; E87.6 Hypokalemia; E89.0 Postprocedural hypothyroidism; I10 Essential (primary) hypertension; M19.90 Unspecified osteoarthritis, unspecified site; M48.061 Spinal stenosis, lumbar region without neurogenic claudication; Z88.1 Allergy status to other antibiotic agents; Z82.49 Family history of ischemic heart disease and other diseases of the circulatory system; Z90.710 Acquired absence of both cervix and uterus; Z88.0 Allergy status to penicillin
CPT/HCPCS: 36415; 71045; 80048; 80053; 80061; 80307; 81001; 82553; 82962; 83690; 83735; 83880; 84443; 84484; 85025; 85379; 85610; 87086; 93005; 93306; G0480; 99285-25

== ENCOUNTER 2018-07-12 22:38 | Emergency (ER) | payer MEDICARE ==
[~2018-07-12] VITALS: Ht 167.6 cm; Wt 86.6 kg
[~2018-07-12 22:38] MED LIST changes: +ATOR20TA58 PO; +LEVO88TA4 PO; +POTA20TA82 PO
[2018-07-12] MEDS ORDERED: HYDROcodone/APAP 5/325MG 1 TAB TABLET PO ONE (23:30)
[2018-07-12] MEDS ORDERED: METH4TAB2 PO (23:44)
--- NOTE | 2018-07-12 23:45 | PHYS DOC ---
Past Medical History Past Medical History: Diabetes-Type II, Hypertension, Hypothyroid Past Surgical History: Hysterectomy, Other Additional Past Surgical Histo: thyroidectomy; hemorrhoidectomy Alcohol Use: None Drug Use: None Adult General Chief Complaint Chief Complaint: BACK PAIN - NO INJURY HPI HPI Patient is a 78 year old female who presents with mid back pain that radiates into the shoulder. She denies chest pain, SOA or known injury. She states that the pain is worse with movement. The patient was recently admitted to the hospital and had a full workup for chest pain. denies cardiac problems. Review of Systems Review of Systems Constitutional: Denies fever or chills [] Eyes: Denies change in visual acuity, redness, or eye pain [] HENT: Denies nasal congestion or sore throat [] Respiratory: Denies cough or shortness of breath [] Cardiovascular: No additional information not addressed in HPI [] GI: Denies abdominal pain, nausea, vomiting, bloody stools or diarrhea [] : Denies dysuria or hematuria [] Musculoskeletal: See HPI Integument: Denies rash or skin lesions [] Neurologic: Denies headache, focal weakness or sensory changes [] Endocrine: Denies polyuria or polydipsia [] All other systems were reviewed and found to be within normal limits, except as documented in this note. Current Medications Current Medications Current Medications Medications (Trade) Dose Ordered Sig/Wood Start Time Stop Time Status Last Admin Dose Admin Acetaminophen/ Hydrocodone Bitart (Lortab 5/325) 1 tab 1X ONCE 07/12/18 23:30 07/12/18 23:31 DC 07/12/18 23:35 1 TAB Allergies Allergies Allergies Coded Allergies Type Severity Reaction Last Updated Verified Cephalexin Monohydrate Allergy Intermediate Rash 09/15/18 Yes Penicillins Allergy Intermediate Rash 09/15/18 Yes doxycycline Allergy Intermediate Rash 09/15/18 Yes Physical Exam Physical Exam Constitutional: Well developed, well nourished, no acute distress, non-toxic appearance. [] Cardiovascular:Heart rate regular rhythm, no murmur [] Lungs & Thorax: Bilateral breath sounds clear to auscultation [] Abdomen: Bowel sounds normal, soft, no tenderness, no masses, no pulsatile masses. [] Skin: Warm, dry, no erythema, no rash. [] Back: tenderness to lower shoulder blade, no sign of vesicles, ecchymosis or rash, no CVA tenderness. [] Neurologic: Alert and oriented X 3, normal motor function, normal sensory function, no focal deficits noted. [] Psychologic: Affect normal, judgement normal, mood normal. [] Current Patient Data Vital Signs EKG EKG [] Radiology/Procedures Radiology/Procedures [] Course & Med Decision Making Course & Med Decision Making Pertinent Labs and Imaging studies reviewed. (See chart for details) []The patient was given norco in the ED which releived her pain. She declines admission to the hospital and will follow up with her PCP. Dragon Disclaimer Dragon Disclaimer This electronic medical record was generated, in whole or in part, using a voice recognition dictation system. Departure Departure Impression: Primary Impression: Shoulder pain Disposition: 01 HOME, SELF-CARE Condition: STABLE Referrals: MARY MONSIVAIS MD (PCP) Patient Instructions: Shoulder Pain Additional Instructions: Take the medication as directed. Make sure you have food on your stomach when you take this medication. Follow-up with your primary care provider in 2 days for recheck if not improving or return to the emergency department if worsening. RADHA STOUT APRN Jul 12, 2018 23:45
[2018-07-12 23:54] VITALS: BP 140/68
== END 2018-07-13 00:03 | disposition home or self-care (01) ==
LOC: ER 22:38
DX: M25.519 Pain in unspecified shoulder (principal); M54.6 Pain in thoracic spine; E11.9 Type 2 diabetes mellitus without complications; I10 Essential (primary) hypertension; E03.9 Hypothyroidism, unspecified
CPT/HCPCS: 99283

== ENCOUNTER → 2018-09-15 | Day surgery (SDC) | payer MEDICARE ==
[~2018-09-15] MED LIST changes: +IV RINGERS,LACTATED 1000ML 1,000 ML IV SCH; +METH4TAB2 PO; +PROPOFOL 20 ML IV ONE
[2018-09-15 09:30] VITALS: BP 165/81
== END | disposition home or self-care (01) ==
LOC: ENDOS 07:23
PROVIDERS: ATTEND Internal Medicine Gastroenterology
DX: K22.2 Esophageal obstruction (principal); K31.7 Polyp of stomach and duodenum; Z88.0 Allergy status to penicillin; Z88.1 Allergy status to other antibiotic agents; K21.9 Gastro-esophageal reflux disease without esophagitis; I10 Essential (primary) hypertension; M19.90 Unspecified osteoarthritis, unspecified site; Z86.010 Personal history of colon polyps; E66.9 Obesity, unspecified; E11.9 Type 2 diabetes mellitus without complications; Z82.49 Family history of ischemic heart disease and other diseases of the circulatory system; Z82.3 Family history of stroke; Z79.899 Other long term (current) drug therapy; Z79.84 Long term (current) use of oral hypoglycemic drugs; Z98.890 Other specified postprocedural states; Z90.49 Acquired absence of other specified parts of digestive tract; Z90.710 Acquired absence of both cervix and uterus; Z68.30 Body mass index [BMI] 30.0-30.9, adult
CPT/HCPCS: 43235; 43450; J2704

== ENCOUNTER → 2019-05-17 | Outpatient (CLI) | payer MEDICARE ==
[2018-09-15 09:30] VITALS: BP 165/81
[~2019-05-17] MED LIST changes: -IV RINGERS,LACTATED 1000ML 1,000 ML IV SCH; +OXYB5TAB10 PO; -OXYB5TAB7 PO; -PANT40TA3 PO; +PANT40TA77 PO; +POTA20TA4 PO; -POTA20TA82 PO; -PROPOFOL 20 ML IV ONE
--- NOTE | 2019-05-18 16:59 | RAD ---
DATE: 05/17/2019 EXAM: MAMMO BLADIMIR SCREENING BILATERAL HISTORY: Routine screening COMPARISON: 05/07/2015, 05/09/2016, 05/12/2017, 05/13/2018 mammographic exams This study was interpreted with the benefit of Computerized Aided Detection (CAD). Breast Density: SCATTERED The breast parenchyma shows scattered fibroglandular densities. Breast parenchyma level B. FINDINGS: No suspicious mass, calcification, or distortion. IMPRESSION: Stable BI-RADS CATEGORY: 1 NEGATIVE RECOMMENDED FOLLOW-UP: 12M 12 MONTH FOLLOW-UP PQRS compliance statement: Patient information was entered into a reminder system with a target due date for the next mammogram. Mammography is a sensitive method for finding small breast cancers, but it does not detect them all and is not a substitute for careful clinical examination. A negative mammogram does not negate a clinically suspicious finding and should not result in delay in biopsying a clinically suspicious abnormality. "Our facility is accredited by the [employer] Mammography Program."
== END | disposition home or self-care (01) ==
LOC: MAMMO 10:42
PROVIDERS: ATTEND Family Medicine
DX: Z12.31 Encounter for screening mammogram for malignant neoplasm of breast (principal)
CPT/HCPCS: 77063; 77067

== ENCOUNTER → 2019-10-20 | Outpatient (CLI) | payer MEDICARE ==
[2018-09-15 09:30] VITALS: BP 165/81
--- NOTE | 2019-10-20 12:10 | KCIC ---
Single AP view the pelvis and frog-leg view the right hip without comparison for chronic low back pain and right hip pain. FINDINGS: There is no fracture, dislocation, or acute osseous abnormality of the right hip. No significant degenerative changes. Phleboliths are seen in the pelvis. IMPRESSION: 1. No acute osseous abnormality of the right hip. Electronically signed by: Shane Willams MD (10/20/2019 12:07 PM) [id number]
--- NOTE | 2019-10-20 12:11 | KCIC ---
3 views of the lumbar spine without comparison for chronic low back pain and hip pain. FINDINGS: There is straightening of the normal lumbar lordosis. There is no fracture or acute osseous abnormality identified. Degenerative disc disease is seen at L3-4, and to a lesser extent L4-5. There is bulky facet arthrosis at L5-S1. IMPRESSION: 1. No acute osseous abnormality. 2. Multilevel degenerative changes as described. Electronically signed by: Shane Willams MD (10/20/2019 12:08 PM) [id number]
== END ==
LOC: KCIC 10:03
PROVIDERS: ATTEND Nurse Practitioner Gerontology
DX: M47.817 Spondylosis without myelopathy or radiculopathy, lumbosacral region (principal); M51.36 Other intervertebral disc degeneration, lumbar region
CPT/HCPCS: 72100; 73501

== ENCOUNTER 2019-11-24 10:20 | Inpatient (IN) | payer MEDICARE ==
[~2019-11-24] VITALS: Ht 167.6 cm; Wt 79.0 kg
[2019-11-24] MEDS ORDERED: NITROGLYCERIN OINT 1 GM PACKET. TP ONE (11:00)
[2019-11-24] MEDS ORDERED: ASPIRIN CHEWABLE 81 MG TABLET. PO ONE (11:00)
[2019-11-24 11:05] LABS: BASO % 1 % (0-3); EOS % 1 % (0-3); HEMATOCRIT 35.4 % (36.0-47.0); HEMOGLOBIN 11.7 g/dL (12.0-15.5); LYMPH # 1.9 x10^3/uL (1.0-4.8); LYMPH % 28 % (24-48); MEAN CORPUSCULAR HEMOGLOBIN 27 pg (25-35); MEAN CORPUSCULAR HGB CONC 33 g/dL (31-37); MEAN CORPUSCULAR VOLUME 81 fL (79-100); MONO # 0.5 x10^3/uL (0.0-1.1); MONO % 8 % (0-9); NEUT # 4.1 x10^3/uL (1.8-7.7); NEUT % 62 % (31-73); PLATELET COUNT 208 x10^3/uL (140-400); RED BLOOD COUNT 4.36 x10^6/uL (3.50-5.40); RED CELL DISTRIBUTION WIDTH 14.3 % (11.5-14.5); WHITE BLOOD COUNT 6.6 x10^3/uL (4.0-11.0)
--- NOTE | 2019-11-24 11:09 | RAD ---
EXAM: CHEST 1 VIEW History: Chest pain COMPARISON: 06/24/2018 TECHNIQUE: Single portable radiograph of the chest FINDINGS: The cardiac silhouette is unremarkable. The lungs are clear bilaterally. The costophrenic sulci are clear and well demarcated. IMPRESSION: No radiographic evidence of an acute cardiopulmonary process. Electronically signed by: Aden Bonilla MD (11/24/2019 11:06 AM) [id number]
[2019-11-24 11:13] LABS: PROTHROMBIN TIME PATIENT 13.6 SEC (11.7-14.0)
[2019-11-24 11:25] LABS: CALCIUM 8.4 mg/dL (8.5-10.1); CREATININE 1.1 mg/dL (0.6-1.0); POTASSIUM 3.1 mmol/L (3.5-5.1)
[2019-11-24 11:30] LABS: ALBUMIN 3.5 g/dL (3.4-5.0); TOTAL PROTEIN 7.6 g/dL (6.4-8.2)
[2019-11-24 11:31] LABS: ALBUMIN/GLOBULIN RATIO 0.9 (1.0-1.7); TOTAL BILIRUBIN 0.4 mg/dL (0.2-1.0)
[2019-11-24] MEDS ORDERED: POTASSIUM CHLORIDE 20 MEQ TABLET.ER. PO ONE ×2 (12:00→17:30)
--- NOTE | 2019-11-24 12:13 | PHYS DOC ---
Past Medical History Past Medical History: Diabetes-Type II, GERD, Hypertension, Hypothyroid Past Surgical History: Hysterectomy, Other Additional Past Surgical Histo: thyroidectomy; hemorrhoidectomy Smoking Status: Never Smoker Alcohol Use: None Drug Use: None General Adult EDM: Chief Complaint: CHEST PAIN HPI: HPI: Patient is a 79 year old female presents with chest pain. Patient has known hypertension she is been having 2 or 3 days now of intermittent chest pressure across the whole chest left-sided is worse it radiates to the jaw is worse when she tries to walk up and down the stairs to help her disabled son who is recently had a stroke. Patient had a stress test a few years back and is followed by Dr. Rainer Pena who is going to schedule another one for December patient denies cough or fever does have some mild shortness of breath with the symptoms Review of Systems: Review of Systems: Constitutional: Denies fever or chills. [] Eyes: Denies change in visual acuity. [] HENT: Denies nasal congestion or sore throat. [] Respiratory: : Denies dysuria. [] Musculoskeletal: Denies back pain or joint pain. [] Integument: Denies rash. [] Neurologic: Denies headache, focal weakness or sensory changes. [] Endocrine: Denies polyuria or polydipsia. [] Lymphatic: Denies swollen glands. [] Psychiatric: Denies depression or anxiety. [] Heart Score: HEART Score for Chest Pain: HEART Score for Chest Pain Response (Comments) Value History Highly Suspicious 2 ECG Nonspecific Repolarizatio 1 Age > 65 2 Risk Factors 1 or 2 Risk Factors (Ulnar radial) 1 Troponin < Normal Limit (Thank you for doing the) 0 Total 6 Risk Factors: Risk Factors: DM, Current or recent (<one month) smoker, HTN, HLP, family history of CAD, obesity. Risk Scores: Score 0 - 3: 2.5% MACE over next 6 weeks - Discharge Home Score 4 - 6: 20.3% MACE over next 6 weeks - Admit for Clinical Observation Score 7 - 10: 72.7% MACE over next 6 weeks - Early Invasive Strategies Current Medications: Current Medications Medications (Trade) Dose Ordered Sig/Wood Start Time Stop Time Status Last Admin Dose Admin Aspirin (Aspirin Chewable) 324 mg 1X ONCE 11/24/19 11:00 11/24/19 11:01 DC 11/24/19 10:54 324 MG Nitroglycerin (Nitro-Bid Oint) 1 inch 1X ONCE 11/24/19 11:00 11/24/19 11:01 DC 11/24/19 10:54 1 INCH Potassium Chloride (Klor-Con) 40 meq 1X ONCE 11/24/19 12:00 11/24/19 12:01 DC Allergies: Allergies: Allergies Coded Allergies Type Severity Reaction Last Updated Verified Cephalexin Monohydrate Allergy Intermediate Rash 09/15/18 Yes Penicillins Allergy Intermediate Rash 09/15/18 Yes doxycycline Allergy Intermediate Rash 09/15/18 Yes Physical Exam: PE: Constitutional: Well developed, well nourished, no acute distress, non-toxic appearance. [] HENT: Normocephalic, atraumatic, bilateral external ears normal, oropharynx moist, no oral exudates, nose normal. [] Eyes: PERRLA, EOMI, conjunctiva normal, no discharge. [] Neck: Normal range of motion, no tenderness, supple, no stridor. [] Cardiovascular:Heart rate regular rhythm, no murmur [] Lungs & Thorax: Bilateral breath sounds clear to auscultation [] Abdomen: Bowel sounds normal, soft, no tenderness, no masses, no pulsatile masses. [] Skin: Warm, dry, no erythema, no rash. [] Back: No tenderness, no CVA tenderness. [] Extremities: No tenderness, no cyanosis, no clubbing, ROM intact, no edema. [] Neurologic: Alert and oriented X 3, normal motor function, normal sensory function, no focal deficits noted. [] Psychologic: Affect normal, judgement normal, mood normal. [] Current Patient Data: Labs: Laboratory Tests Test 11/24/19 10:35 White Blood Count 6.6 x10^3/uL (4.0-11.0) Red Blood Count 4.36 x10^6/uL (3.50-5.40) Hemoglobin 11.7 g/dL (12.0-15.5) L Hematocrit 35.4 % (36.0-47.0) L Mean Corpuscular Volume 81 fL (79-100) Mean Corpuscular Hemoglobin 27 pg (25-35) Mean Corpuscular Hemoglobin Concent 33 g/dL (31-37) Red Cell Distribution Width 14.3 % (11.5-14.5) Platelet Count 208 x10^3/uL (140-400) Neutrophils (%) (Auto) 62 % (31-73) Lymphocytes (%) (Auto) 28 % (24-48) Monocytes (%) (Auto) 8 % (0-9) Eosinophils (%) (Auto) 1 % (0-3) Basophils (%) (Auto) 1 % (0-3) Neutrophils # (Auto) 4.1 x10^3/uL (1.8-7.7) Lymphocytes # (Auto) 1.9 x10^3/uL (1.0-4.8) Monocytes # (Auto) 0.5 x10^3/uL (0.0-1.1) Eosinophils # (Auto) 0.0 x10^3/uL (0.0-0.7) Basophils # (Auto) 0.0 x10^3/uL (0.0-0.2) Prothrombin Time 13.6 SEC (11.7-14.0) Prothrombin Time INR 1.1 (0.8-1.1) Sodium Level 137 mmol/L (136-145) Potassium Level 3.1 mmol/L (3.5-5.1) L Chloride Level 98 mmol/L (98-107) Carbon Dioxide Level 30 mmol/L (21-32) Anion Gap 9 (6-14) Blood Urea Nitrogen 13 mg/dL (7-20) Creatinine 1.1 mg/dL (0.6-1.0) H Estimated GFR (Cockcroft-Gault) 58.0 BUN/Creatinine Ratio 12 (6-20) Glucose Level 175 mg/dL (70-99) H Calcium Level 8.4 mg/dL (8.5-10.1) L Total Bilirubin 0.4 mg/dL (0.2-1.0) Aspartate Amino Transferase (AST) 27 U/L (15-37) Alanine Aminotransferase (ALT) 22 U/L (14-59) Alkaline Phosphatase 78 U/L (46-116) Troponin I Quantitative < 0.017 ng/mL (0.000-0.055) ZR-Bpd-K-Type Natriuretic Peptide 57 pg/mL (0-449) Total Protein 7.6 g/dL (6.4-8.2) Albumin 3.5 g/dL (3.4-5.0) Albumin/Globulin Ratio 0.9 (1.0-1.7) L Laboratory Tests 11/24/19 10:35 Laboratory Tests 11/24/19 10:35 Vital Signs: Vital Signs Date Time Temp Pulse Resp B/P (MAP) Pulse Ox O2 Delivery O2 Flow Rate FiO2 11/24/19 10:54 100 177/88 11/24/19 10:37 98.2 20 100 Room Air 98.2 EKG: EKG: [] EKG shows a left bundle branch block pattern with a rate of 107 compared to previous EKG from June and this appears to be a new finding of note patient is chest pain-free in the emergency room when this EKG was performed Radiology/Procedures: Radiology/Procedures: [] Impression: TECHNIQUE: Single portable radiograph of the chest FINDINGS: The cardiac silhouette is unremarkable. The lungs are clear bilaterally. The costophrenic sulci are clear and well demarcated. IMPRESSION: No radiographic evidence of an acute cardiopulmonary process. Electronically signed by: Aden Bonilla MD (11/24/2019 11:06 AM) [id number] DICTATED and SIGNED BY: ADEN BONILLA MD DATE: 11/24/19 1106 Course & Med Decision Making: Course & Med Decision Making Pertinent Labs and Imaging studies reviewed. (See chart for details) This is a 79-year-old female presenting with chest pain. Patient has multiple risk factors and a concerning story heart 6 i talked to kapil from cardiology, reviewed new lbbb. cp free, they will consult. trop neg aspirin and nitropaste. patient stable in er agreeable to admit no obivous evidnece of other acute pathology at this time. Dragon Disclaimer: Dragon Disclaimer: This electronic medical record was generated, in whole or in part, using a voice recognition dictation system. Departure Departure Impression: Primary Impression: Chest pain Disposition: ADMITTED INPATIENT Admitting Physician: JUANA Condition: STABLE Referrals: MARY MONSIVAIS MD (PCP) Justicifation of Admission Dx: Justifications for Admission: Justification of Admission Dx: Yes Angina: Cresendo Worsening of Sym JAMIN BAXTER MD Nov 24, 2019 12:13
--- NOTE | 2019-11-24 13:28 | PDOC1 ---
History and Physical Date of Admission Date of Admission DATE: 11/24/19 TIME: 13:27 Identification/Chief Complaint Chief Complaint seen in er , 79 year old female presents with chest pain. Patient has known hypertension she is been having 2 or 3 days now of intermittent chest pressure across the anterior chest left-sided is worse it radiates to the jaw is worse when she tries to walk up and down the stairs to help her disabled son who is recently had a stroke. had a stress test a few years back and is followed by Dr. Lozada who is going to schedule another one for December denies cough or fever does have some mild shortness of breath with the symptoms, admits to recent increase of stress at work due to covid-19, fewer workers there to help daily tasks She has noticed some heart-burn type GERD symptoms as well Past Medical History Past Medical History Past Medical History Past Medical History: Diabetes-Type II, GERD, Hypertension, Hypothyroid Past Surgical History: Hysterectomy, Other Additional Past Surgical Histo: thyroidectomy; hemorrhoidectomy Smoking Status: Never Smoker Alcohol Use: None Drug Use: None FHX HTN Cardiovascular: HTN, Hyperlipidemia Pulmonary: No pertinent hx CENTRAL NERVOUS SYSTEM: Other GI: GERD Heme/Onc: No pertinent hx Hepatobiliary: No pertinent hx Psych: No pertinent hx Musculoskeletal: low back pain Rheumatologic: No pertinent hx Infectious disease: No pertinent hx Renal/: No pertinent hx Endocrine: Diabetes, Hypothyroidism Past Surgical History Past Surgical History: Other Family History Family History: Coronary Artery Disease, Hypertension Social History Smoke: No ALCOHOL: none Drugs: None Current Problem List Problem List Problems Medical Problems: (1) Chest pain Status: Acute Current Medications Current Medications Current Medications Aspirin (Aspirin Chewable) 324 mg 1X ONCE PO Last administered on 11/24/19at 10:54; Start 11/24/19 at 11:00; Stop 11/24/19 at 11:01; Status DC Nitroglycerin (Nitro-Bid Oint) 1 inch 1X ONCE TP Last administered on 11/24/19at 10:54; Start 11/24/19 at 11:00; Stop 11/24/19 at 11:01; Status DC Potassium Chloride (Klor-Con) 40 meq 1X ONCE PO Last administered on 11/24/19at 12:37; Start 11/24/19 at 12:00; Stop 11/24/19 at 12:01; Status DC Active Scripts Active Protonix (Pantoprazole Sodium) 40 Mg Tablet 40 Mg PO DAILYAC Reported Potassium Chloride 20 Meq Tablet.er 20 Meq PO DAILY Levothyroxine Sodium 88 Mcg Tablet 1 Tab PO DAILY Metformin Hcl 500 Mg Tablet 500 Mg PO BIDWMEALS Atorvastatin Calcium 20 Mg Tablet 20 Mg PO DAILY Norvasc (Amlodipine Besylate) 10 Mg Tablet 10 Mg PO DAILY Aspirin 81 Mg Tab.chew 1 Tab PO DAILY Senokot-S Tablet (Sennosides/Docusate Sodium) 1 Each Tablet 1 Each PO Oxybutynin Chloride 5 Mg Tablet 2 Tab PO DAILY Probiotic Complex (Lactobacillus Combo No.6) 1 Each Tablet 1 Each PO DAILY Vitamin B-12 (Cyanocobalamin (Vitamin B-12)) 50 Mcg Tablet 50 Mcg PO DAILY Calcium (Calcium Carbonate) 500 Mg Tab.chew 500 Mg PO DAILY Fish Oil ([place]-3 Fatty Acids) 300 Mg Capsule 300 Mg PO DAILY Multi-Vitamin Daily (Multivitamin) 1 Each Tablet 1 Each PO DAILY Losartan-Hctz 100-25 Mg Tab (Losartan/Hydrochlorothiazide) 1 Each Tablet 1 Each PO DAILY Allergies Allergies: Coded Allergies: Cephalexin Monohydrate (Verified Allergy, Intermediate, Rash, 09/15/18) Penicillins (Verified Allergy, Intermediate, Rash, 09/15/18) doxycycline (Verified Allergy, Intermediate, Rash, 09/15/18) ROS Review of System Review of Systems: Constitutional: Denies fever or chills. [] Eyes: Denies change in visual acuity. [] HENT: Denies nasal congestion or sore throat. [] Respiratory: : Denies dysuria. [] Musculoskeletal: Denies back pain or joint pain. [] Integument: Denies rash. [] Neurologic: Denies headache, focal weakness or sensory changes. [] Endocrine: Denies polyuria or polydipsia. [] Lymphatic: Denies swollen glands. [] Psychiatric: Denies depression or anxiety. [] 14 pt ros otherwise neg Hematological and Lymphatic: No: Bleeding Problems, Blood Clots, Blood Transfusions, Brusing, Night Sweats, Pallor, Swollen Lymph Nodes, Other Gastrointestinal: No Nausea, No Vomiting, No Abdominal Pain, No Diarrhea, No Constipation, No Melena, No Hematochezia, No Other Musculoskeletal: No Gait Disturbance, No Joint Pain, No Joint Stiffness, No Joint Swelling, No Muscle Pain, No Muscular Weakness, No Pain In:, No Swelling I n:, No Other Neurological: No Behavorial Changes, No Bowel/Bladder ControlChng, No Confusion, No Dizziness, No Gait Disturbance, No Headaches, No Impaired Coord/balance, No Memory Loss, No Numbness/Tingling, No Seizures, No Speech Pro blems, No Tremors, No Visual Changes, No Weakness, No Other Physical Exam Physical Exam Constitutional: Well developed, well nourished, no acute distress, non-toxic appearance. [] HENT: Normocephalic, atraumatic, bilateral external ears normal, oropharynx moist, no oral exudates, nose normal. [] Eyes: PERRLA, EOMI, conjunctiva normal, no discharge. [] Neck: Normal range of motion, no tenderness, supple, no stridor. [] Cardiovascular:Heart rate regular rhythm, no murmur [] Lungs & Thorax: Bilateral breath sounds clear to auscultation [] Abdomen: Bowel sounds normal, soft, no tenderness, no masses, no pulsatile masses. [] Skin: Warm, dry, no erythema, no rash. [] Back: No tenderness, no CVA tenderness. [] Extremities: No tenderness, no cyanosis, no clubbing, ROM intact, no edema. [] Neurologic: Alert and oriented X 3, normal motor function, normal sensory function, no focal deficits noted. [] Psychologic: Affect normal, judgment normal, mood normal. [] General: Alert, Oriented X3, Cooperative, No acute distress HEENT: Atraumatic, EOMI, Mucous membr. moist/pink Lungs: Clear to auscultation, Normal air movement Heart: RRR Breasts: Not examined Abdomen: Normal bowel sounds, Soft Rectal Exam: not examined PELVIC: Examination not indicated Extremities: No cyanosis Neuro: Normal speech, Cranial nerves 3-12 NL Psych/Mental Status: Mental status NL, Mood NL Vitals Vitals Vital Signs Date Time Temp Pulse Resp B/P (MAP) Pulse Ox O2 Delivery O2 Flow Rate FiO2 11/24/19 10:54 100 177/88 11/24/19 10:37 98.2 20 100 Room Air 98.2 Labs Labs Laboratory Tests Test 11/24/19 10:35 White Blood Count 6.6 x10^3/uL (4.0-11.0) Red Blood Count 4.36 x10^6/uL (3.50-5.40) Hemoglobin 11.7 g/dL (12.0-15.5) Hematocrit 35.4 % (36.0-47.0) Mean Corpuscular Volume 81 fL (79-100) Mean Corpuscular Hemoglobin 27 pg (25-35) Mean Corpuscular Hemoglobin Concent 33 g/dL (31-37) Red Cell Distribution Width 14.3 % (11.5-14.5) Platelet Count 208 x10^3/uL (140-400) Neutrophils (%) (Auto) 62 % (31-73) Lymphocytes (%) (Auto) 28 % (24-48) Monocytes (%) (Auto) 8 % (0-9) Eosinophils (%) (Auto) 1 % (0-3) Basophils (%) (Auto) 1 % (0-3) Neutrophils # (Auto) 4.1 x10^3/uL (1.8-7.7) Lymphocytes # (Auto) 1.9 x10^3/uL (1.0-4.8) Monocytes # (Auto) 0.5 x10^3/uL (0.0-1.1) Eosinophils # (Auto) 0.0 x10^3/uL (0.0-0.7) Basophils # (Auto) 0.0 x10^3/uL (0.0-0.2) Prothrombin Time 13.6 SEC (11.7-14.0) Prothromb Time International Ratio 1.1 (0.8-1.1) Sodium Level 137 mmol/L (136-145) Potassium Level 3.1 mmol/L (3.5-5.1) Chloride Level 98 mmol/L (98-107) Carbon Dioxide Level 30 mmol/L (21-32) Anion Gap 9 (6-14) Blood Urea Nitrogen 13 mg/dL (7-20) Creatinine 1.1 mg/dL (0.6-1.0) Estimated GFR (Cockcroft-Gault) 58.0 BUN/Creatinine Ratio 12 (6-20) Glucose Level 175 mg/dL (70-99) Calcium Level 8.4 mg/dL (8.5-10.1) Total Bilirubin 0.4 mg/dL (0.2-1.0) Aspartate Amino Transf (AST/SGOT) 27 U/L (15-37) Alanine Aminotransferase (ALT/SGPT) 22 U/L (14-59) Alkaline Phosphatase 78 U/L (46-116) Troponin I Quantitative < 0.017 ng/mL (0.000-0.055) WV-Qlu-Z-Type Natriuretic Peptide 57 pg/mL (0-449) Total Protein 7.6 g/dL (6.4-8.2) Albumin 3.5 g/dL (3.4-5.0) Albumin/Globulin Ratio 0.9 (1.0-1.7) Laboratory Tests Test 11/24/19 10:35 White Blood Count 6.6 x10^3/uL (4.0-11.0) Red Blood Count 4.36 x10^6/uL (3.50-5.40) Hemoglobin 11.7 g/dL (12.0-15.5) Hematocrit 35.4 % (36.0-47.0) Mean Corpuscular Volume 81 fL (79-100) Mean Corpuscular Hemoglobin 27 pg (25-35) Mean Corpuscular Hemoglobin Concent 33 g/dL (31-37) Red Cell Distribution Width 14.3 % (11.5-14.5) Platelet Count 208 x10^3/uL (140-400) Neutrophils (%) (Auto) 62 % (31-73) Lymphocytes (%) (Auto) 28 % (24-48) Monocytes (%) (Auto) 8 % (0-9) Eosinophils (%) (Auto) 1 % (0-3) Basophils (%) (Auto) 1 % (0-3) Neutrophils # (Auto) 4.1 x10^3/uL (1.8-7.7) Lymphocytes # (Auto) 1.9 x10^3/uL (1.0-4.8) Monocytes # (Auto) 0.5 x10^3/uL (0.0-1.1) Eosinophils # (Auto) 0.0 x10^3/uL (0.0-0.7) Basophils # (Auto) 0.0 x10^3/uL (0.0-0.2) Prothrombin Time 13.6 SEC (11.7-14.0) Prothromb Time International Ratio 1.1 (0.8-1.1) Sodium Level 137 mmol/L (136-145) Potassium Level 3.1 mmol/L (3.5-5.1) Chloride Level 98 mmol/L (98-107) Carbon Dioxide Level 30 mmol/L (21-32) Anion Gap 9 (6-14) Blood Urea Nitrogen 13 mg/dL (7-20) Creatinine 1.1 mg/dL (0.6-1.0) Estimated GFR (Cockcroft-Gault) 58.0 BUN/Creatinine Ratio 12 (6-20) Glucose Level 175 mg/dL (70-99) Calcium Level 8.4 mg/dL (8.5-10.1) Total Bilirubin 0.4 mg/dL (0.2-1.0) Aspartate Amino Transf (AST/SGOT) 27 U/L (15-37) Alanine Aminotransferase (ALT/SGPT) 22 U/L (14-59) Alkaline Phosphatase 78 U/L (46-116) Troponin I Quantitative < 0.017 ng/mL (0.000-0.055) FP-Lep-C-Type Natriuretic Peptide 57 pg/mL (0-449) Total Protein 7.6 g/dL (6.4-8.2) Albumin 3.5 g/dL (3.4-5.0) Albumin/Globulin Ratio 0.9 (1.0-1.7) Images Images EXAM: CHEST 1 VIEW History: Chest pain COMPARISON: 06/24/2018 TECHNIQUE: Single portable radiograph of the chest FINDINGS: The cardiac silhouette is unremarkable. The lungs are clear bilaterally. The costophrenic sulci are clear and well demarcated. IMPRESSION: No radiographic evidence of an acute cardiopulmonary process. Electronically signed by: Aden Bonilla MD (11/24/2019 11:06 AM) [id number] DICTATED and SIGNED BY: ADEN BONILLA MD DATE: 11/24/19 1106 VTE Prophylaxis Ordered VTE Prophylaxis Devices: No VTE Pharmacological Prophylaxi: Yes Assessment/Plan Assessment/Plan Impression: Chest pain Hypokalemia HYPERTENSION Hyperlipidemia GERD ADMITTED cvc bed trend troponin i consult cardiology HOME MEDS DVT PROPHYLAXIS protonix po 40 mg daily 64 min pt exam, chart review, > 50% of time spent with exam, chart review, pt care coordination Justicifation of Admission Dx: Justifications for Admission: Justification of Admission Dx: Yes Angina: Cresendo Worsening of Sym JANIYA DOE MD Nov 24, 2019 13:28
[2019-11-24 14:45] VITALS: BP 142/67
[2019-11-24] MEDS ORDERED: IBUP800T19 (15:23)
[2019-11-24] MEDS ORDERED: POTASSIUM (15:23)
[2019-11-24] MEDS ORDERED: DOCUSATE SODIUM 100 MG CAPSULE. PO PRN (17:30)
[2019-11-24] MEDS ORDERED: ALBUTEROL SULFATE 2.5 MG/3 ML NEBU. NEB PRN (17:30)
[2019-11-24] MEDS ORDERED: guaiFENesin ORAL 200 MG/10 ML LIQUID. PO PRN (17:30)
[2019-11-24] MEDS ORDERED: 0.9 % SODIUM CHLORIDE 10 ML DISP.SYRIN. IV PRN (17:30)
[2019-11-24] MEDS ORDERED: MAG HYDROX/ALUMINUM HYD/SIMETH 30 ML ORAL.SUSP PO PRN (17:30)
[2019-11-24] MEDS ORDERED: ONDANSETRON PF 4 MG/2 ML VIAL. IV PRN (17:30)
[2019-11-24 18:41] VITALS: BP 127/67
[2019-11-24] MEDS ORDERED: MORPHINE SULFATE 2 MG/ML VIAL. IV ONE (18:45)
[2019-11-24] MEDS ORDERED: MORPHINE SULFATE 10 MG/ML VIAL. ONE ×2 (18:49→19:00)
[2019-11-24] MEDS: NITROGLYCERIN SUBLINGUAL 0.4 MG BOTTLE OF 25. SL PRN (18:53)
--- NOTE | 2019-11-24 19:08 | EKG ---
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
--- NOTE | 2019-11-24 20:32 | EKG ---
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
[2019-11-24] MEDS: ACETAMINOPHEN 325 MG TABLET. PO PRN (21:59)
[2019-11-24] MEDS: PANTOPRAZOLE 40 MG TABLET.DR. PO SCH (22:00)
[2019-11-24] MEDS: SENNOSIDES/DOCUSATE 8.6/50MG TABLET. PO PRN (22:00)
[2019-11-24] MEDS: ENOXAPARIN 40 MG/0.4 ML SYRINGE. SQ SCH (22:01)
[2019-11-24] MEDS ORDERED: META-21 PO (22:16)
[2019-11-24 23:08] VITALS: BP 136/71
[2019-11-24 23:11] VITALS: BP 128/60
[2019-11-25] VITALS (11 sets, daily range): BP systolic 105–195; BP diastolic 62–125
[2019-11-25 05:38] LABS: CREATININE 0.9 mg/dL (0.6-1.0); GFR 73.1; POTASSIUM 3.6 mmol/L (3.5-5.1)
[2019-11-25 05:56] LABS: CHOLESTEROL/HDL RATIO 1.6
[2019-11-25] MEDS: LEVOTHYROXINE 88 MCG TABLET PO SCH (06:00)
[2019-11-25] MEDS ORDERED: PANTOPRAZOLE 40 MG TABLET.DR. PO SCH (07:30)
[2019-11-25] MEDS: NITROGLYCERIN SUBLINGUAL 0.4 MG BOTTLE OF 25. SL PRN ×2 (08:10→10:15)
[2019-11-25] MEDS: LOSARTAN POTASSIUM 50 MG TABLET. PO SCH (08:12)
[2019-11-25] MEDS: ASPIRIN CHEWABLE 81 MG TABLET. PO SCH (08:13)
[2019-11-25] MEDS: POTASSIUM CHLORIDE 20 MEQ TABLET.ER. PO SCH ×2 (08:13→09:00)
[2019-11-25] MEDS: amLODIPine BESYLATE 10 MG TABLET PO SCH (08:14)
[2019-11-25] MEDS: PANTOPRAZOLE 40 MG TABLET.DR. PO SCH (08:14)
--- NOTE | 2019-11-25 08:44 | PDOC ---
PROGRESS NOTES History of Present Illness History of Present Illness VTE Prophylaxis Ordered VTE Prophylaxis Devices: No VTE Pharmacological Prophylaxi: Yes Assessment/Plan Assessment/Plan Impression: Chest pain Hypokalemia HYPERTENSION Hyperlipidemia GERD ADMITTED cvc bed trend troponin i consult cardiology HOME MEDS DVT PROPHYLAXIS protonix po 40 mg daily 37 min pt exam, chart review, > 50% of time spent with exam, chart review, pt care coordination Justicifation of Admission Dx: Justicifation of Admission Dx: Justifications for Admission: Justification of Admission Dx: Yes Angina: Cresendo Worsening of Sym Vitals Vitals Vital Signs Date Time Temp Pulse Resp B/P (MAP) Pulse Ox O2 Delivery O2 Flow Rate FiO2 11/25/19 08:14 97 137/81 11/25/19 07:00 98.5 16 93 Room Air 98.5 11/24/19 21:06 2.0 Physical Exam General: Alert, Oriented X3, Cooperative, No acute distress Lungs: Clear, Other Abdomen: Normal bowel sounds, Soft Extremities: No cyanosis Labs LABS PATIENT: KEATNO TIMMONS ACCOUNT: [id number] : 1940 LOCATION: [address] [place] [address] AGE: 76 SEX: F EXAM STATUS: ADM IN ORD. PHYSICIAN: SB WHEATLEY APRN REASON: CP PROCEDURE: MPI SPECT 1DAY REST&STRESS PHA APPROVED REPORT Test Type: Pharmacological Stress Nurse/Tech: Char Coburn R.N. Test Indications: Chest pain Cardiac History: HTN Medications: SEE EMR Medical History: SEE EMR Resting ECG: SR with QRS contour abnormalities Resting Heart Rate: 59 bpm Resting Blood Pressure: SBmmHg Pretest Chest Pain: None Nurse/Tech Notes S1S2, lungs CTA, denied chest pain or SOA. Consent: The procedure was explained to the patient in lay terms. Informed consent was witnessed. Timeout was entered into [employer]. History and Stress Test performed by Char Coburn R.N. Pharm. Details Pharmacologic stress testing was performed using 0.4mg per 5ml of regadenoson given intravenously over 7-10 seconds. Stress Symptoms C/O mid-sternal chest pressure which resolved within two minutes of testing. POST EXERCISE Reason for Termination: Infusion complete Max HR: 115 bpm Max Blood Pressure: 179/70mmHg Blood Pressure response to exercise: Normal blood pressure response during stress. Heart Rate response to exercise: Normal Chest Pain: No. Arrhythmia: No. ST Change: Yes. QRS contour changes in multiple leads. INTERPRETATION Stress EKG Conclusion: Abnormal EKG response with a rate dependent LBBB noted with vasodilator infusion. Imaging Protocol IMAGE PROTOCOL: Rest Tc-99m/stress Tc-99m 1 day Rest: Stress: Viability: Radiopharm. Tc99m Sestamibi Tc99m Sestamibi Dose 10.7mCi 33mCi Duration 15min. 10min. Img Date 01/14/2017 01/14/2017 Inj-Img Time 60min. 60min. Rest Admin Site: IV - Left Antecubital Fusing Furnace Loader: Alma Arvizu, RT (R)(N) Stress Admin Site: IV - Left Antecubital Fusing Furnace Loader: MOSHE Carrion, ARRT (R)(N) STRESS DATA End Diast. Vol. 70.0ml Av. Heart Rate 84.0bpm End Syst. Vol. 19.0ml CO Index BSA 0.0L/min Myocardial Mass 116.0g Eject. Fraction 73.0% Stress Rates Pk. Fill Rate 3.56EDV/sec LVtime Pk. Fill 171.91msec Pk. Empty Rate 4.52ESV/sec LVtime Pk. Eject 184.13msec 1/3 Pk. Fill 0.69EDV/sec Stress Scores Regional WT 2.00 Summed WT 22.00 Regional WM 0.00 Summed WM 2.00 The rest and stress images show normal perfusion, normal contraction and thickening. LV Perf. Quant 17 Seg. SSS 0.00 17 Seg. SRS 0.00 17 Seg. SDS 0.00 Stress Defect Extent (% LAD) 0.00 Rest Defect Extent (% LAD) 0.00 Rev. Defect Extent (% LAD) 0.00 Stress Defect Extent (% LCX) 0.00 Rest Defect Extent (% LCX) 0.00 Rev. Defect Extent (% LCX) 0.00 Stress Defect Extent (% RCA) 0.00 Rest Defect Extent (% RCA) 0.00 Rev. Defect Extent (% RCA) 0.00 Stress Defect Extent (% SONYA) 0.00 Rest Defect Extent (% SONYA) 0.00 Rev. Defect Extent (% SONYA) 0.00 Other Information Quality:Good Risk Assessment: Low Risk Conclusion 1. Abnormal EKG response to vasodilator infusion - rate dependent LBBB noted. 2. Normal perfusion at stress/rest. 3. Normal EF at > 70%. 4. Low risk study DICTATED and SIGNED BY: CARLOS MEJIA MD DATE: 01/14/17 9747 CC: SB WHEATLEY APRN; MAIA KEITH MD; ANGELA AN MD ~ Laboratory Tests Test 11/24/19 10:35 11/24/19 16:15 11/24/19 16:30 11/25/19 04:37 White Blood Count 6.6 x10^3/uL (4.0-11.0) Red Blood Count 4.36 x10^6/uL (3.50-5.40) Hemoglobin 11.7 g/dL (12.0-15.5) Hematocrit 35.4 % (36.0-47.0) Mean Corpuscular Volume 81 fL (79-100) Mean Corpuscular Hemoglobin 27 pg (25-35) Mean Corpuscular Hemoglobin Concent 33 g/dL (31-37) Red Cell Distribution Width 14.3 % (11.5-14.5) Platelet Count 208 x10^3/uL (140-400) Neutrophils (%) (Auto) 62 % (31-73) Lymphocytes (%) (Auto) 28 % (24-48) Monocytes (%) (Auto) 8 % (0-9) Eosinophils (%) (Auto) 1 % (0-3) Basophils (%) (Auto) 1 % (0-3) Neutrophils # (Auto) 4.1 x10^3/uL (1.8-7.7) Lymphocytes # (Auto) 1.9 x10^3/uL (1.0-4.8) Monocytes # (Auto) 0.5 x10^3/uL (0.0-1.1) Eosinophils # (Auto) 0.0 x10^3/uL (0.0-0.7) Basophils # (Auto) 0.0 x10^3/uL (0.0-0.2) Prothrombin Time 13.6 SEC (11.7-14.0) Prothromb Time International Ratio 1.1 (0.8-1.1) Sodium Level 137 mmol/L (136-145) 142 mmol/L (136-145) Potassium Level 3.1 mmol/L (3.5-5.1) 3.6 mmol/L (3.5-5.1) Chloride Level 98 mmol/L (98-107) 103 mmol/L (98-107) Carbon Dioxide Level 30 mmol/L (21-32) 32 mmol/L (21-32) Anion Gap 9 (6-14) 7 (6-14) Blood Urea Nitrogen 13 mg/dL (7-20) 11 mg/dL (7-20) Creatinine 1.1 mg/dL (0.6-1.0) 0.9 mg/dL (0.6-1.0) Estimated GFR (Cockcroft-Gault) 58.0 73.1 BUN/Creatinine Ratio 12 (6-20) Glucose Level 175 mg/dL (70-99) 105 mg/dL (70-99) Calcium Level 8.4 mg/dL (8.5-10.1) 8.0 mg/dL (8.5-10.1) Total Bilirubin 0.4 mg/dL (0.2-1.0) Aspartate Amino Transf (AST/SGOT) 27 U/L (15-37) Alanine Aminotransferase (ALT/SGPT) 22 U/L (14-59) Alkaline Phosphatase 78 U/L (46-116) Troponin I Quantitative < 0.017 ng/mL (0.000-0.055) < 0.017 ng/mL (0.000-0.055) < 0.017 ng/mL (0.000-0.055) ED-Gsu-Z-Type Natriuretic Peptide 57 pg/mL (0-449) Total Protein 7.6 g/dL (6.4-8.2) Albumin 3.5 g/dL (3.4-5.0) Albumin/Globulin Ratio 0.9 (1.0-1.7) Triglycerides Level 58 mg/dL (0-150) Cholesterol Level 127 mg/dL (0-200) LDL Cholesterol, Calculated 38 mg/dL (0-100) VLDL Cholesterol, Calculated 12 mg/dL (0-40) Non-HDL Cholesterol Calculated 50 mg/dL (0-129) HDL Cholesterol 77 mg/dL (40-60) Cholesterol/HDL Ratio 1.6 Assessment and Plan Assessmemt and Plan Problems Medical Problems: (1) Chest pain Status: Acute Comment Review of Relevant I have reviewed the following items gela (where applicable) has been applied. Labs Laboratory Tests Test 11/24/19 10:35 11/24/19 16:15 11/24/19 16:30 11/25/19 04:37 White Blood Count 6.6 x10^3/uL (4.0-11.0) Red Blood Count 4.36 x10^6/uL (3.50-5.40) Hemoglobin 11.7 g/dL (12.0-15.5) Hematocrit 35.4 % (36.0-47.0) Mean Corpuscular Volume 81 fL (79-100) Mean Corpuscular Hemoglobin 27 pg (25-35) Mean Corpuscular Hemoglobin Concent 33 g/dL (31-37) Red Cell Distribution Width 14.3 % (11.5-14.5) Platelet Count 208 x10^3/uL (140-400) Neutrophils (%) (Auto) 62 % (31-73) Lymphocytes (%) (Auto) 28 % (24-48) Monocytes (%) (Auto) 8 % (0-9) Eosinophils (%) (Auto) 1 % (0-3) Basophils (%) (Auto) 1 % (0-3) Neutrophils # (Auto) 4.1 x10^3/uL (1.8-7.7) Lymphocytes # (Auto) 1.9 x10^3/uL (1.0-4.8) Monocytes # (Auto) 0.5 x10^3/uL (0.0-1.1) Eosinophils # (Auto) 0.0 x10^3/uL (0.0-0.7) Basophils # (Auto) 0.0 x10^3/uL (0.0-0.2) Prothrombin Time 13.6 SEC (11.7-14.0) Prothromb Time International Ratio 1.1 (0.8-1.1) Sodium Level 137 mmol/L (136-145) 142 mmol/L (136-145) Potassium Level 3.1 mmol/L (3.5-5.1) 3.6 mmol/L (3.5-5.1) Chloride Level 98 mmol/L (98-107) 103 mmol/L (98-107) Carbon Dioxide Level 30 mmol/L (21-32) 32 mmol/L (21-32) Anion Gap 9 (6-14) 7 (6-14) Blood Urea Nitrogen 13 mg/dL (7-20) 11 mg/dL (7-20) Creatinine 1.1 mg/dL (0.6-1.0) 0.9 mg/dL (0.6-1.0) Estimated GFR (Cockcroft-Gault) 58.0 73.1 BUN/Creatinine Ratio 12 (6-20) Glucose Level 175 mg/dL (70-99) 105 mg/dL (70-99) Calcium Level 8.4 mg/dL (8.5-10.1) 8.0 mg/dL (8.5-10.1) Total Bilirubin 0.4 mg/dL (0.2-1.0) Aspartate Amino Transf (AST/SGOT) 27 U/L (15-37) Alanine Aminotransferase (ALT/SGPT) 22 U/L (14-59) Alkaline Phosphatase 78 U/L (46-116) Troponin I Quantitative < 0.017 ng/mL (0.000-0.055) < 0.017 ng/mL (0.000-0.055) < 0.017 ng/mL (0.000-0.055) QN-Ynn-Q-Type Natriuretic Peptide 57 pg/mL (0-449) Total Protein 7.6 g/dL (6.4-8.2) Albumin 3.5 g/dL (3.4-5.0) Albumin/Globulin Ratio 0.9 (1.0-1.7) Triglycerides Level 58 mg/dL (0-150) Cholesterol Level 127 mg/dL (0-200) LDL Cholesterol, Calculated 38 mg/dL (0-100) VLDL Cholesterol, Calculated 12 mg/dL (0-40) Non-HDL Cholesterol Calculated 50 mg/dL (0-129) HDL Cholesterol 77 mg/dL (40-60) Cholesterol/HDL Ratio 1.6 Laboratory Tests Test 11/24/19 10:35 11/24/19 16:15 11/24/19 16:30 11/25/19 04:37 White Blood Count 6.6 x10^3/uL (4.0-11.0) Red Blood Count 4.36 x10^6/uL (3.50-5.40) Hemoglobin 11.7 g/dL (12.0-15.5) Hematocrit 35.4 % (36.0-47.0) Mean Corpuscular Volume 81 fL (79-100) Mean Corpuscular Hemoglobin 27 pg (25-35) Mean Corpuscular Hemoglobin Concent 33 g/dL (31-37) Red Cell Distribution Width 14.3 % (11.5-14.5) Platelet Count 208 x10^3/uL (140-400) Neutrophils (%) (Auto) 62 % (31-73) Lymphocytes (%) (Auto) 28 % (24-48) Monocytes (%) (Auto) 8 % (0-9) Eosinophils (%) (Auto) 1 % (0-3) Basophils (%) (Auto) 1 % (0-3) Neutrophils # (Auto) 4.1 x10^3/uL (1.8-7.7) Lymphocytes # (Auto) 1.9 x10^3/uL (1.0-4.8) Monocytes # (Auto) 0.5 x10^3/uL (0.0-1.1) Eosinophils # (Auto) 0.0 x10^3/uL (0.0-0.7) Basophils # (Auto) 0.0 x10^3/uL (0.0-0.2) Prothrombin Time 13.6 SEC (11.7-14.0) Prothromb Time International Ratio 1.1 (0.8-1.1) Sodium Level 137 mmol/L (136-145) 142 mmol/L (136-145) Potassium Level 3.1 mmol/L (3.5-5.1) 3.6 mmol/L (3.5-5.1) Chloride Level 98 mmol/L (98-107) 103 mmol/L (98-107) Carbon Dioxide Level 30 mmol/L (21-32) 32 mmol/L (21-32) Anion Gap 9 (6-14) 7 (6-14) Blood Urea Nitrogen 13 mg/dL (7-20) 11 mg/dL (7-20) Creatinine 1.1 mg/dL (0.6-1.0) 0.9 mg/dL (0.6-1.0) Estimated GFR (Cockcroft-Gault) 58.0 73.1 BUN/Creatinine Ratio 12 (6-20) Glucose Level 175 mg/dL (70-99) 105 mg/dL (70-99) Calcium Level 8.4 mg/dL (8.5-10.1) 8.0 mg/dL (8.5-10.1) Total Bilirubin 0.4 mg/dL (0.2-1.0) Aspartate Amino Transf (AST/SGOT) 27 U/L (15-37) Alanine Aminotransferase (ALT/SGPT) 22 U/L (14-59) Alkaline Phosphatase 78 U/L (46-116) Troponin I Quantitative < 0.017 ng/mL (0.000-0.055) < 0.017 ng/mL (0.000-0.055) < 0.017 ng/mL (0.000-0.055) NO-Clv-V-Type Natriuretic Peptide 57 pg/mL (0-449) Total Protein 7.6 g/dL (6.4-8.2) Albumin 3.5 g/dL (3.4-5.0) Albumin/Globulin Ratio 0.9 (1.0-1.7) Triglycerides Level 58 mg/dL (0-150) Cholesterol Level 127 mg/dL (0-200) LDL Cholesterol, Calculated 38 mg/dL (0-100) VLDL Cholesterol, Calculated 12 mg/dL (0-40) Non-HDL Cholesterol Calculated 50 mg/dL (0-129) HDL Cholesterol 77 mg/dL (40-60) Cholesterol/HDL Ratio 1.6 Medications Current Medications Aspirin (Aspirin Chewable) 324 mg 1X ONCE PO Last administered on 11/24/19at 10:54; Start 11/24/19 at 11:00; Stop 11/24/19 at 11:01; Status DC Nitroglycerin (Nitro-Bid Oint) 1 inch 1X ONCE TP Last administered on 11/24/19at 10:54; Start 11/24/19 at 11:00; Stop 11/24/19 at 11:01; Status DC Potassium Chloride (Klor-Con) 40 meq 1X ONCE PO Last administered on 11/24/19at 12:37; Start 11/24/19 at 12:00; Stop 11/24/19 at 12:01; Status DC Amlodipine Besylate (Norvasc) 10 mg DAILY PO Last administered on 11/25/19at 08:14; Start 11/25/19 at 09:00 Aspirin (Aspirin Chewable) 81 mg DAILY PO Last administered on 11/25/19at 08:13; Start 11/25/19 at 09:00 Atorvastatin Calcium (Lipitor) 20 mg DAILY PO ; Start 11/25/19 at 09:00 Levothyroxine Sodium (Synthroid) 88 mcg DAILY06 PO ; Start 11/25/19 at 06:00 Oxybutynin Chloride (Ditropan) 10 mg DAILY PO ; Start 11/25/19 at 09:00 Pantoprazole Sodium (Protonix) 40 mg DAILYAC PO ; Start 11/25/19 at 07:30; Stop 11/24/19 at 19:39; Status DC Potassium Chloride (Klor-Con) 20 meq DAILY PO ; Start 11/25/19 at 09:00 Senna/Docusate Sodium (Senna Plus) 1 tab PRN BID PRN PO CONSTIPATION Last adm inistered on 11/24/19at 22:00; Start 11/24/19 at 17:15 Calcium Carbonate/ Glycine (Oscal) 500 mg DAILY PO ; Start 11/25/19 at 09:00 Cyanocobalamin (Vitamin B-12) 50 mcg DAILY PO ; Start 11/25/19 at 09:00 Lactobacillus Rhamnosus (Culturelle) 1 cap DAILY PO ; Start 11/25/19 at 09:00 Losartan Potassium (Cozaar) 100 mg DAILY PO Last administered on 11/25/19at 08:12; Start 11/25/19 at 09:00 Multivitamins (Thera M Plus) 1 tab DAILY PO ; Start 11/25/19 at 09:00 Fish Oil (Fish Oil) 1,000 mg DAILY PO ; Start 11/25/19 at 09:00 Potassium Chloride (Klor-Con) 40 meq 1X ONCE PO Last administered on 11/24/19at 17:52; Start 11/24/19 at 17:30; Stop 11/24/19 at 17:31; Status DC Potassium Chloride (Klor-Con) 20 meq DAILYWBKFT PO Last administered on 11/25/19at 08:13; Start 11/25/19 at 08:00 Hydrochlorothiazide (Hydrodiuril) 25 mg DAILY PO ; Start 11/25/19 at 09:00 Sodium Chloride (Normal Saline Flush) 3 ml QSHIFT PRN IV AFTER MEDS AND BLOOD DRAWS; Start 11/24/19 at 17:30 Ondansetron HCl (Zofran) 4 mg PRN Q4HRS PRN IV NAUSEA/VOMITING; Start 11/24/19 at 17:30 Acetaminophen (Tylenol) 650 mg PRN Q4HRS PRN PO TEMP OVER 100.4F OR MILD PAIN Last administered on 11/24/19at 21:59; Start 11/24/19 at 17:30 Al Hydroxide/Mg Hydroxide (Mylanta Plus Xs) 30 ml PRN DAILY PRN PO HEARTBURN / GAS; Start 11/24/19 at 17:30 Docusate Sodium (Colace) 100 mg PRN BID PRN PO HARD STOOLS; Start 11/24/19 at 17:30 Albuterol Sulfate (Ventolin Neb Soln) 2.5 mg PRN Q4HRS PRN NEB SHORTNESS OF BREATH; Start 11/24/19 at 17:30 Guaifenesin (Robitussin) 200 mg PRN Q4HRS PRN PO COUGH; Start 11/24/19 at 17:30 Enoxaparin Sodium (Lovenox 40mg Syringe) 40 mg Q24H SQ Last administered on 11/24/19at 22:01; Start 11/24/19 at 21:00 Morphine Sulfate (Morphine Sulfate) 2 mg 1X ONCE IV Last administered on 11/24/19at 18:45; Start 11/24/19 at 18:45; Stop 11/24/19 at 18:49; Status DC Nitroglycerin (Nitrostat) 0.4 mg PRN Q5MIN PRN SL CHEST PAIN Last administered on 11/25/19at 08:10; Start 11/24/19 at 18:45 Morphine Sulfate (Morphine Sulfate) 10 mg STK-MED ONCE .ROUTE ; Start 11/24/19 at 18:49; Stop 11/24/19 at 18:49; Status DC Pantoprazole Sodium (Protonix) 40 mg DAILYAC PO Last administered on 11/25/19at 08:14; Start 11/24/19 at 19:30 Active Scripts Active Protonix (Pantoprazole Sodium) 40 Mg Tablet 40 Mg PO DAILYAC Reported Skelaxin (Metaxalone) 800 Mg Tablet 800 Mg PO PRN Q6HRS PRN Ibuprofen 800 Mg Tablet 800 PRN PRN [Potassium] 10 Tab BID Potassium Chloride (Potassium Chloride) 20 Meq Tablet.er 20 Meq PO DAILY Levothyroxine Sodium 88 Mcg Tablet 1 Tab PO DAILY Metformin Hcl 500 Mg Tablet 500 Mg PO BIDWMEALS Atorvastatin Calcium 20 Mg Tablet 20 Mg PO QHS Norvasc (Amlodipine Besylate) 10 Mg Tablet 10 Mg PO DAILY Aspirin 81 Mg Tab.chew 1 Tab PO DAILY Senokot-S Tablet (Sennosides/Docusate Sodium) 1 Each Tablet 1 Each PO Oxybutynin Chloride 5 Mg Tablet 2 Tab PO DAILY Probiotic Complex (Lactobacillus Combo No.6) 1 Each Tablet 1 Each PO DAILY Vitamin B-12 (Cyanocobalamin (Vitamin B-12)) 50 Mcg Tablet 50 Mcg PO DAILY Calcium (Calcium Carbonate) 500 Mg Tab.chew 500 Mg PO DAILY Fish Oil ([place]-3 Fatty Acids) 300 Mg Capsule 300 Mg PO DAILY Multi-Vitamin Daily (Multivitamin) 1 Each Tablet 1 Each PO DAILY Losartan-Hctz 100-25 Mg Tab (Losartan/Hydrochlorothiazide) 1 Each Tablet 1 Each PO DAILY Vitals/I & O Vital Sign - Last 24 Hours 11/24/19 11/24/19 11/24/19 11/24/19 10:37 10:54 12:01 13:01 Temp 98.2 98.2 Pulse 107 100 98 96 Resp 20 B/P (MAP) 177/88 (117) 177/88 130/68 (88) 135/62 (86) Pulse Ox 100 98 98 O2 Delivery Room Air Room Air Room Air 11/24/19 11/24/19 11/24/19 11/24/19 13:31 14:45 16:00 18:41 Temp 98.5 97.9 98.5 97.9 Pulse 97 91 92 Resp 18 B/P (MAP) 137/74 (95) 142/67 (92) 127/67 (87) Pulse Ox 98 97 96 O2 Delivery Room Air Room Air Room Air Room Air 11/24/19 11/24/19 11/24/19 11/24/19 18:45 18:53 20:00 20:45 Pulse 92 Resp 20 20 B/P (MAP) 127/67 Pulse Ox 96 O2 Delivery Room Air Room Air 11/24/19 11/24/19 11/25/19 11/25/19 21:06 23:08 02:43 07:00 Temp 98.7 98.4 98.5 98.7 98.4 98.5 Pulse 76 87 79 Resp 18 16 16 B/P (MAP) 136/71 (92) 154/79 (104) 155/72 (99) Pulse Ox 98 95 98 93 O2 Delivery Nasal Cannula Room Air Room Air Room Air O2 Flow Rate 2.0 11/25/19 11/25/19 11/25/19 08:10 08:12 08:14 Pulse 97 97 97 B/P (MAP) 137/81 137/81 137/81 Intake and Output 11/24/19 11/24/19 11/25/19 15:00 23:00 07:00 Intake Total 840 ml 600 ml Output Total 551 ml 550 ml Balance 289 ml 50 ml Justicifation of Admission Dx: Justifications for Admission: Justification of Admission Dx: Yes Angina: Cresendo Worsening of Sym JANIYA DOE MD Nov 25, 2019 08:44
[2019-11-25] MEDS ORDERED: CALCIUM CARBONATE 500 MG TABLET PO SCH (09:00)
[2019-11-25] MEDS ORDERED: ATORVASTATIN CALCIUM 20 MG TABLET PO SCH (09:00)
[2019-11-25] MEDS ORDERED: OMEGA-3 FATTY ACIDS/FISH OIL 1,000 MG CAPSULE. PO SCH (09:00)
[2019-11-25] MEDS ORDERED: OXYBUTYNIN CHLORIDE 5 MG TABLET PO SCH (09:00)
[2019-11-25] MEDS ORDERED: MULTIVITAMIN with MINERAL TABLET. PO SCH (09:00)
--- NOTE | 2019-11-25 12:10 | NUR ---
SS following for discharge planning. SS reviewed pt chart and discussed with pt RN. Pt is from home with spouse and is currently on room air. SS will continue to follow for discharge planning.
--- NOTE | 2019-11-25 12:31 | PDOC2 ---
CONSULT Date of Consult Date of Consult DATE: 11/25/19 TIME: 12:30 Reason for Consult Reason for Consult: Chest pain Referring Physician Referring Physician: Dr. Miller Identification/Chief Complaint Chief Complaint Chest pain Source Source: Chart review, Patient History of Present Illness Reason for Visit: 79-year-old female presented with retrosternal chest pressure radiating to jaw worse with exertion. She had 2 more episodes this morning that she rated at 10/10 severity. This is associated with mild shortness of breath but she denied any orthopnea/PND, palpitations or syncope. She had a tele-visit with me earlier this month when she was complaining of similar chest pain and was scheduled for outpatient echo and stress test. Past Medical History Cardiovascular: HTN, Hyperlipidemia Pulmonary: No pertinent hx CENTRAL NERVOUS SYSTEM: Other GI: GERD Heme/Onc: No pertinent hx Hepatobiliary: No pertinent hx Psych: No pertinent hx Musculoskeletal: low back pain Rheumatologic: No pertinent hx Infectious disease: No pertinent hx Renal/: No pertinent hx Endocrine: Diabetes, Hypothyroidism Past Surgical History Past Surgical History Thyroidectomy Past Surgical History: Other Family History Family History: Coronary Artery Disease, Hypertension Social History No ALCOHOL: none Drugs: None Lives: with Family Domestic Violence: Neg Current Problem List Problem List Problems Medical Problems: (1) Chest pain Status: Acute Current Medications Current Medications Current Medications Aspirin (Aspirin Chewable) 324 mg 1X ONCE PO Last administered on 11/24/19at 10:54; Start 11/24/19 at 11:00; Stop 11/24/19 at 11:01; Status DC Nitroglycerin (Nitro-Bid Oint) 1 inch 1X ONCE TP Last administered on 11/24/19at 10:54; Start 11/24/19 at 11:00; Stop 11/24/19 at 11:01; Status DC Potassium Chloride (Klor-Con) 40 meq 1X ONCE PO Last administered on 11/24/19at 12:37; Start 11/24/19 at 12:00; Stop 11/24/19 at 12:01; Status DC Amlodipine Besylate (Norvasc) 10 mg DAILY PO Last administered on 11/25/19at 08:14; Start 11/25/19 at 09:00 Aspirin (Aspirin Chewable) 81 mg DAILY PO Last administered on 11/25/19at 08:13; Start 11/25/19 at 09:00 Atorvastatin Calcium (Lipitor) 20 mg DAILY PO ; Start 11/25/19 at 09:00 Levothyroxine Sodium (Synthroid) 88 mcg DAILY06 PO ; Start 11/25/19 at 06:00 Oxybutynin Chloride (Ditropan) 10 mg DAILY PO ; Start 11/25/19 at 09:00 Pantoprazole Sodium (Protonix) 40 mg DAILYAC PO ; Start 11/25/19 at 07:30; Stop 11/24/19 at 19:39; Status DC Potassium Chloride (Klor-Con) 20 meq DAILY PO ; Start 11/25/19 at 09:00 Senna/Docusate Sodium (Senna Plus) 1 tab PRN BID PRN PO CONSTIPATION Last administered on 11/24/19at 22:00; Start 11/24/19 at 17:15 Calcium Carbonate/ Glycine (Oscal) 500 mg DAILY PO ; Start 11/25/19 at 09:00 Cyanocobalamin (Vitamin B-12) 50 mcg DAILY PO ; Start 11/25/19 at 09:00 Lactobacillus Rhamnosus (Culturelle) 1 cap DAILY PO ; Start 11/25/19 at 09:00 Losartan Potassium (Cozaar) 100 mg DAILY PO Last administered on 11/25/19at 08: 12; Start 11/25/19 at 09:00 Multivitamins (Thera M Plus) 1 tab DAILY PO ; Start 11/25/19 at 09:00 Fish Oil (Fish Oil) 1,000 mg DAILY PO ; Start 11/25/19 at 09:00 Potassium Chloride (Klor-Con) 40 meq 1X ONCE PO Last administered on 11/24/19at 17:52; Start 11/24/19 at 17:30; Stop 11/24/19 at 17:31; Status DC Potassium Chloride (Klor-Con) 20 meq DAILYWBKFT PO Last administered on at 08:13; Start 11/25/19 at 08:00 Hydrochlorothiazide (Hydrodiuril) 25 mg DAILY PO ; Start 11/25/19 at 09:00 Sodium Chloride (Normal Saline Flush) 3 ml QSHIFT PRN IV AFTER MEDS AND BLOOD DRAWS; Start 11/24/19 at 17:30 Ondansetron HCl (Zofran) 4 mg PRN Q4HRS PRN IV NAUSEA/VOMITING; Start 11/24/19 at 17:30 Acetaminophen (Tylenol) 650 mg PRN Q4HRS PRN PO TEMP OVER 100.4F OR MILD PAIN Last administered on 11/24/19at 21:59; Start 11/24/19 at 17:30 Al Hydroxide/Mg Hydroxide (Mylanta Plus Xs) 30 ml PRN DAILY PRN PO HEARTBURN / GAS; Start 11/24/19 at 17:30 Docusate Sodium (Colace) 100 mg PRN BID PRN PO HARD STOOLS; Start 11/24/19 at 17:30 Albuterol Sulfate (Ventolin Neb Soln) 2.5 mg PRN Q4HRS PRN NEB SHORTNESS OF BREATH; Start 11/24/19 at 17:30 Guaifenesin (Robitussin) 200 mg PRN Q4HRS PRN PO COUGH; Start 11/24/19 at 17:30 Enoxaparin Sodium (Lovenox 40mg Syringe) 40 mg Q24H SQ Last administered on 11/24/19at 22:01; Start 11/24/19 at 21:00 Morphine Sulfate (Morphine Sulfate) 2 mg 1X ONCE IV Last administered on 11/24/19at 18:45; Start 11/24/19 at 18:45; Stop 11/24/19 at 18:49; Status DC Nitroglycerin (Nitrostat) 0.4 mg PRN Q5MIN PRN SL CHEST PAIN Last administered on 11/25/19at 10:15; Start 11/24/19 at 18:45 Morphine Sulfate (Morphine Sulfate) 10 mg STK-MED ONCE .ROUTE ; Start 11/24/19 at 18:49; Stop 11/24/19 at 18:49; Status DC Pantoprazole Sodium (Protonix) 40 mg DAILYAC PO Last administered on 11/25/19at 08:14; Start 11/24/19 at 19:30 Active Scripts Active Protonix (Pantoprazole Sodium) 40 Mg Tablet 40 Mg PO DAILYAC Reported Skelaxin (Metaxalone) 800 Mg Tablet 800 Mg PO PRN Q6HRS PRN Ibuprofen 800 Mg Tablet 800 PRN PRN [Potassium] 10 Tab BID Potassium Chloride (Potassium Chloride) 20 Meq Tablet.er 20 Meq PO DAILY Levothyroxine Sodium 88 Mcg Tablet 1 Tab PO DAILY Metformin Hcl 500 Mg Tablet 500 Mg PO BIDWMEALS Atorvastatin Calcium 20 Mg Tablet 20 Mg PO QHS Norvasc (Amlodipine Besylate) 10 Mg Tablet 10 Mg PO DAILY Aspirin 81 Mg Tab.chew 1 Tab PO DAILY Senokot-S Tablet (Sennosides/Docusate Sodium) 1 Each Tablet 1 Each PO Oxybutynin Chloride 5 Mg Tablet 2 Tab PO DAILY Probiotic Complex (Lactobacillus Combo No.6) 1 Each Tablet 1 Each PO DAILY Vitamin B-12 (Cyanocobalamin (Vitamin B-12)) 50 Mcg Tablet 50 Mcg PO DAILY Calcium (Calcium Carbonate) 500 Mg Tab.chew 500 Mg PO DAILY Fish Oil ([place]-3 Fatty Acids) 300 Mg Capsule 300 Mg PO DAILY Multi-Vitamin Daily (Multivitamin) 1 Each Tablet 1 Each PO DAILY Losartan-Hctz 100-25 Mg Tab (Losartan/Hydrochlorothiazide) 1 Each Tablet 1 Each PO DAILY Allergies Allergies: Coded Allergies: Cephalexin Monohydrate (Verified Allergy, Intermediate, Rash, 09/15/18) Penicillins (Verified Allergy, Intermediate, Rash, 09/15/18) doxycycline (Verified Allergy, Intermediate, Rash, 09/15/18) ROS PSYCHOLOGICAL ROS: No: Hallucinations Eyes: No Loss of vision HEENT: No: Epistaxis ENDOCRINE: No: Palpitations Respiratory: YES: Shortness of breath; No: Hemoptysis Cardiovascular: yes Chest Pain Gastrointestinal: No Vomiting, No Diarrhea Genitourinary: No Hematuria Neurological: No Seizures Skin: No Rash Physical Exam General: Alert, Oriented X3 HEENT: Atraumatic, PERRLA Lungs: Clear to auscultation Heart: Regular rate Abdomen: Soft Extremities: No edema Psych/Mental Status: Mood NL Vitals VITALS Vital Signs Date Time Temp Pulse Resp B/P (MAP) Pulse Ox O2 Delivery O2 Flow Rate FiO2 11/25/19 10:22 97 160/89 (112) 94 11/25/19 10:15 Room Air 11/25/19 07:00 98.5 16 98.5 11/24/19 21:06 2.0 Labs Labs Laboratory Tests Test 11/24/19 10:35 11/24/19 16:15 11/24/19 16:30 11/25/19 04:37 White Blood Count 6.6 x10^3/uL (4.0-11.0) Red Blood Count 4.36 x10^6/uL (3.50-5.40) Hemoglobin 11.7 g/dL (12.0-15.5) Hematocrit 35.4 % (36.0-47.0) Mean Corpuscular Volume 81 fL (79-100) Mean Corpuscular Hemoglobin 27 pg (25-35) Mean Corpuscular Hemoglobin Concent 33 g/dL (31-37) Red Cell Distribution Width 14.3 % (11.5-14.5) Platelet Count 208 x10^3/uL (140-400) Neutrophils (%) (Auto) 62 % (31-73) Lymphocytes (%) (Auto) 28 % (24-48) Monocytes (%) (Auto) 8 % (0-9) Eosinophils (%) (Auto) 1 % (0-3) Basophils (%) (Auto) 1 % (0-3) Neutrophils # (Auto) 4.1 x10^3/uL (1.8-7.7) Lymphocytes # (Auto) 1.9 x10^3/uL (1.0-4.8) Monocytes # (Auto) 0.5 x10^3/uL (0.0-1.1) Eosinophils # (Auto) 0.0 x10^3/uL (0.0-0.7) Basophils # (Auto) 0.0 x10^3/uL (0.0-0.2) Prothrombin Time 13.6 SEC (11.7-14.0) Prothromb Time International Ratio 1.1 (0.8-1.1) Sodium Level 137 mmol/L (136-145) 142 mmol/L (136-145) Potassium Level 3.1 mmol/L (3.5-5.1) 3.6 mmol/L (3.5-5.1) Chloride Level 98 mmol/L (98-107) 103 mmol/L (98-107) Carbon Dioxide Level 30 mmol/L (21-32) 32 mmol/L (21-32) Anion Gap 9 (6-14) 7 (6-14) Blood Urea Nitrogen 13 mg/dL (7-20) 11 mg/dL (7-20) Creatinine 1.1 mg/dL (0.6-1.0) 0.9 mg/dL (0.6-1.0) Estimated GFR (Cockcroft-Gault) 58.0 73.1 BUN/Creatinine Ratio 12 (6-20) Glucose Level 175 mg/dL (70-99) 105 mg/dL (70-99) Calcium Level 8.4 mg/dL (8.5-10.1) 8.0 mg/dL (8.5-10.1) Total Bilirubin 0.4 mg/dL (0.2-1.0) Aspartate Amino Transf (AST/SGOT) 27 U/L (15-37) Alanine Aminotransferase (ALT/SGPT) 22 U/L (14-59) Alkaline Phosphatase 78 U/L (46-116) Troponin I Quantitative < 0.017 ng/mL (0.000-0.055) < 0.017 ng/mL (0.000-0.055) < 0.017 ng/mL (0.000-0.055) YC-Uez-X-Type Natriuretic Peptide 57 pg/mL (0-449) Total Protein 7.6 g/dL (6.4-8.2) Albumin 3.5 g/dL (3.4-5.0) Albumin/Globulin Ratio 0.9 (1.0-1.7) Triglycerides Level 58 mg/dL (0-150) Cholesterol Level 127 mg/dL (0-200) LDL Cholesterol, Calculated 38 mg/dL (0-100) VLDL Cholesterol, Calculated 12 mg/dL (0-40) Non-HDL Cholesterol Calculated 50 mg/dL (0-129) HDL Cholesterol 77 mg/dL (40-60) Cholesterol/HDL Ratio 1.6 Laboratory Tests Test 11/24/19 16:15 11/24/19 16:30 11/25/19 04:37 Troponin I Quantitative < 0.017 ng/mL (0.000-0.055) < 0.017 ng/mL (0.000-0.055) Sodium Level 142 mmol/L (136-145) Potassium Level 3.6 mmol/L (3.5-5.1) Chloride Level 103 mmol/L (98-107) Carbon Dioxide Level 32 mmol/L (21-32) Anion Gap 7 (6-14) Blood Urea Nitrogen 11 mg/dL (7-20) Creatinine 0.9 mg/dL (0.6-1.0) Estimated GFR (Cockcroft-Gault) 73.1 Glucose Level 105 mg/dL (70-99) Calcium Level 8.0 mg/dL (8.5-10.1) Triglycerides Level 58 mg/dL (0-150) Cholesterol Level 127 mg/dL (0-200) LDL Cholesterol, Calculated 38 mg/dL (0-100) VLDL Cholesterol, Calculated 12 mg/dL (0-40) Non-HDL Cholesterol Calculated 50 mg/dL (0-129) HDL Cholesterol 77 mg/dL (40-60) Cholesterol/HDL Ratio 1.6 Assessment/Plan Assessment/Plan 1. Chest pain with typical features concerning for unstable angina. Myocardial infarction has been ruled out. We will proceed with cardiac catheterization and possible angioplasty. Risks and benefits were explained and she is agreeable. 2. Hypertension: Blood pressure slightly elevated. Continue current medic ations and start beta-blockers. 3. Hyperlipidemia: Continue statin therapy 4. Hypothyroidism: On levothyroxine 5. Diabetes mellitus type 2: Treat per IM Thank you for your consultation DAWOOD RODRIGUEZ MD Nov 25, 2019 12:30
[2019-11-25] MEDS ORDERED: MIDAZOLAM HCL/PF 5 MG/5 ML VIAL. ONE (13:58)
[2019-11-25] MEDS ORDERED: fentaNYL PF VIAL 100 MCG/2 ML VIAL ONE (13:58)
[2019-11-25] MEDS ORDERED: HEPARIN for IV BOLUS 10,000 UNIT/10 ML VIAL. ONE (13:58)
[2019-11-25] MEDS ORDERED: VERAPAMIL 5 MG/2 ML VIAL. ONE (13:58)
[2019-11-25] MEDS ORDERED: NITROGLYCERIN 200 MCG/2 ML SYRINGE FOR CATH/VASC LAB. ONE (13:58)
[2019-11-25] MEDS ORDERED: IOHEXOL 300 MG/ML 100ML VIAL. ONE (14:00)
[2019-11-25] MEDS ORDERED: LIDOCAINE 1% PF 2 ML VIAL. ONE (14:00)
--- NOTE | 2019-11-25 14:22 | PDOC ---
MODERATE SEDATION ASSESSMENT RISKS/ALTERNATIVES Risks/Alternatives Risks and alternatives of this type of sedation and procedure discussed with: RISK/ALTERNATIVES: Patient H & P ON CHART H & P H & P on chart and reviewed for co-morbid conditions and appropriate labs. H&P ON CHART: Yes STATUS PREG STATUS ASSESSED: N/A MEDS/ALLERGIES REVIEWED Meds/Allergies Reviewed Medications and Allergies including time and route of recently administered narcotics and sedatives. MEDS/ALLERGIES REVIEWED: Yes ASA RATING ASA RATING: III AIRWAY ASSESSMENT Airway Assessment Airway patency, oral function limitations, presence of caps, crowns, dentures, partials, and ability to extend neck assessed. AIRWAY ASSESSMENT: Yes MALLAMPATI SCORE MALLAMPATI SCORE: II PRE-SEDATION ASSESSMENT PRE-SEDATION ASSESSMENT: Yes DAWOOD RODRIGUEZ MD Nov 25, 2019 14:22
[2019-11-25] MEDS ORDERED: ONDANSETRON PF 4 MG/2 ML VIAL. ONE (14:26)
[2019-11-25] MEDS ORDERED: IOHEXOL 300 MG/ML 100ML VIAL. IART ONE (14:45)
[2019-11-25] MEDS ORDERED: fentaNYL PF VIAL 100 MCG/2 ML VIAL IV ONE (14:45)
[2019-11-25] MEDS ORDERED: MIDAZOLAM HCL/PF 5 MG/5 ML VIAL. IV ONE (14:45)
[2019-11-25] MEDS ORDERED: LIDOCAINE 1% PF 2 ML VIAL. INJ ONE (14:45)
[2019-11-25] MEDS ORDERED: HEPARIN for IV BOLUS 10,000 UNIT/10 ML VIAL. IART ONE (14:45)
[2019-11-25] MEDS ORDERED: NITROGLYCERIN 200 MCG/2 ML SYRINGE FOR CATH/VASC LAB. IART ONE (14:45)
[2019-11-25] MEDS ORDERED: VERAPAMIL 5 MG/2 ML VIAL. IART ONE (14:45)
[2019-11-25] MEDS ORDERED: METOPROLOL TART IMMED RELEASE 25 MG TABLET. PO SCH (15:00)
[2019-11-25] MEDS ORDERED: IV 1/2 NORMAL SALINE 1,000 ML IV SCH (15:35)
--- NOTE | 2019-11-25 15:40 | CARD ---
MR#: [id number] Date of Study: 11/25/2019 Ordering Physician: DAWOOD RODRIGUEZ, Referring Physician: DAWOOD RODRIGUEZ Tech: CARINA SMITH RTR APPROVED REPORT Technologist: CARINA SMITH RTR Nurse: Betty Obrien R.N. Procedure(s) performed: Left heart catheterization, selective coronary angiography and left ventricul ography via right transradial approach MODERATE SEDATION TIME:52 MINS FLUORO TIME: 11.1 MIN DOSE: 42.5 GYCM2 CONTRAST: 116CC OMNI 300 INDICATION The indication(s) include : unstable angina . CSHA Clinical Frailty Scale [facility] Clinical Frailty Scale: Mildly Frail Heart Failure Heart Failure: No PROCEDURE NARRATIVE After explaining the risks, benefits and alternative options, informed consent was obtained from rigo ent. Patient was brought to the cardiac Light Truck [employer] and right wrist was prepped and draped in the usual fashion after confirming a positive modified Pineda's test. Arterial access was obtained in the rig t radial artery and a 6 Portuguese sheath was inserted. 6 Portuguese JL 3.5 and 6 Portuguese JR4 catheters were used to perform selective angiography of the left and right coronary arteries after initial attempts to engage these vessels using 6 Portuguese Gui catheter were unsuccessful. 6 Portuguese pigtail catheter w as used to perform left ventriculography. Patient tolerated the procedure well. Hemostasis was achi eved using TR band. There were no immediate complications. The following findings were noted. FINDINGS 1. Hemodynamics: Left ventricular end-diastolic pressure of 11 mmHg. No pullback gradient across th e aortic valve. 2. Left ventriculography: Normal left ventricle systolic function with ejection fraction estimated at 55%. No significant mitral regurgitation seen. 3. Coronary angiography: a. The left main coronary artery arose from the left sinus of Valsalva, gave rise to the left anteri or descending and left circumflex arteries and did not show any significant stenosis. b. The left anterior descending artery did not show any significant stenosis. c. The left circumflex artery was a large and dominant vessel that did not show any significant sten osis. d. The right coronary artery was a small and nondominant vessel arising from the right sinus of Vals [place] that did not show any significant stenosis. Conclusion 1. Left dominant system without any significant coronary artery disease. 2. Normal left ventricle systolic function with ejection fraction estimated at 55%. Signed by : Dawood Rodriguez, Electronically Approved : 11/25/2019 15:40:23
[2019-11-25] MEDS: LACTOBACILLUS RHAMNOSUS GG 1 CAPSULE. PO SCH (16:20)
[2019-11-25] MEDS: hydroCHLOROthiazide 25 MG TABLET PO SCH (16:21)
[2019-11-25] MEDS: CYANOCOBALAMIN (VITAMIN B-12) 100 MCG TABLET. PO SCH (16:21)
[2019-11-25] MEDS: ACETAMINOPHEN 325 MG TABLET. PO PRN (20:12)
[2019-11-25] MEDS: ENOXAPARIN 40 MG/0.4 ML SYRINGE. SQ SCH (21:01)
[2019-11-26 03:00] VITALS: BP 116/74
[2019-11-26] MEDS: LEVOTHYROXINE 88 MCG TABLET PO SCH (05:30)
[2019-11-26 07:00] VITALS: BP 125/62
[2019-11-26] MEDS: PANTOPRAZOLE 40 MG TABLET.DR. PO SCH (08:09)
[2019-11-26] MEDS: LOSARTAN POTASSIUM 50 MG TABLET. PO SCH (09:00)
[2019-11-26] MEDS: hydroCHLOROthiazide 25 MG TABLET PO SCH (09:00)
[2019-11-26] MEDS: POTASSIUM CHLORIDE 20 MEQ TABLET.ER. PO SCH ×2 (09:00→09:36)
[2019-11-26] MEDS: ASPIRIN CHEWABLE 81 MG TABLET. PO SCH (09:36)
[2019-11-26] MEDS: amLODIPine BESYLATE 10 MG TABLET PO SCH (09:37)
[2019-11-26] MEDS: SENNOSIDES/DOCUSATE 8.6/50MG TABLET. PO PRN (09:37)
[2019-11-26] MEDS: LACTOBACILLUS RHAMNOSUS GG 1 CAPSULE. PO SCH (09:38)
[2019-11-26] MEDS: CYANOCOBALAMIN (VITAMIN B-12) 100 MCG TABLET. PO SCH (09:39)
--- NOTE | 2019-11-26 10:18 | PDOC ---
PROGRESS NOTES History of Present Illness History of Present Illness VTE Prophylaxis Ordered VTE Prophylaxis Devices: No VTE Pharmacological Prophylaxi: Yes discharge dx Assessment/Plan Impression: Chest pain, unstable angina Hypokalemia HYPERTENSION Hyperlipidemia GERD ADMITTED cvc bed trend troponin i neg consult cardiology HOME MEDS DVT PROPHYLAXIS protonix po 40 mg daily cath MODERATE SEDATION TIME:52 MINS FLUORO TIME: 11.1 MIN DOSE: 42.5 GYCM2 CONTRAST: 116CC OMNI 300 INDICATION The indication(s) include : unstable angina . [facility] Clinical Frailty Scale [facility] Clinical Frailty Scale: Mildly Frail Heart Failure Heart Failure: No PROCEDURE NARRATIVE After explaining the risks, benefits and alternative options, informed consent was obtained from patient. Patient was brought to the cardiac [employer] and right wrist was prepped and draped in the usual fashion after confirming a positive modified Pineda's test. Arterial access was obtained in the right radial artery and a 6 [place] sheath was inserted. 6 [place] JL 3.5 and 6 [place] JR4 catheters were used to perform selective angiography of the left and right coronary arteries after initial attempts to engage these vessels using 6 [place] Gui catheter were unsuccessful. 6 [place] pigtail catheter was used to perform left ventriculography. Patient tolerated the procedure well. Hemostasis was achieved using TR band. There were no immediate complications. The following findings were noted. FINDINGS 1. Hemodynamics: Left ventricular end-diastolic pressure of 11 mmHg. No pullback gradient across the aortic valve. 2. Left ventriculography: Normal left ventricle systolic function with ejection fraction estimated at 55%. No significant mitral regurgitation seen. 3. Coronary angiography: a. The left main coronary artery arose from the left sinus of Valsalva, gave rise to the left anterior descending and left circumflex arteries and did not show any significant stenosis. b. The left anterior descending artery did not show any significant stenosis. c. The left circumflex artery was a large and dominant vessel that did not show any significant stenosis. d. The right coronary artery was a small and nondominant vessel arising from the right sinus of Valsalva that did not show any significant stenosis. Conclusion 1. Left dominant system without any significant coronary artery disease. 2. Normal left ventricle systolic function with ejection fraction estimated at 55%. Signed by : Dawood Ayala, Electronically Approved : 11/25/2019 15:40:23 DICTATED and SIGNED BY: DAWOOD AYALA MD DATE: 11/25/19 1526 37 min pt exam, chart review d/c planning , > 50% of time spent with exam, chart review, pt care coordination Justicifation of Admission Dx: Justicifation of Admission Dx: Justifications for Admission: Justification of Admission Dx: Yes Angina: Cresendo Worsening of Sym Vitals Vitals Vital Signs Date Time Temp Pulse Resp B/P (MAP) Pulse Ox O2 Delivery O2 Flow Rate FiO2 11/26/19 09:37 125/62 11/26/19 07:00 98.7 80 18 99 Room Air 98.7 11/25/19 15:21 2.0 Physical Exam General: Alert, Oriented X3, Cooperative, No acute distress Heart: Regular rate, Normal S1 Lungs: Clear, Other Abdomen: Normal bowel sounds, Soft Extremities: No clubbing, No cyanosis, No edema Assessment and Plan Assessmemt and Plan Problems Medical Problems: (1) Chest pain Status: Acute Comment Review of Relevant I have reviewed the following items gela (where applicable) has been applied. Labs Laboratory Tests Test 11/24/19 10:35 11/24/19 16:15 11/24/19 16:30 11/25/19 04:37 White Blood Count 6.6 x10^3/uL (4.0-11.0) Red Blood Count 4.36 x10^6/uL (3.50-5.40) Hemoglobin 11.7 g/dL (12.0-15.5) Hematocrit 35.4 % (36.0-47.0) Mean Corpuscular Volume 81 fL (79-100) Mean Corpuscular Hemoglobin 27 pg (25-35) Mean Corpuscular Hemoglobin Concent 33 g/dL (31-37) Red Cell Distribution Width 14.3 % (11.5-14.5) Platelet Count 208 x10^3/uL (140-400) Neutrophils (%) (Auto) 62 % (31-73) Lymphocytes (%) (Auto) 28 % (24-48) Monocytes (%) (Auto) 8 % (0-9) Eosinophils (%) (Auto) 1 % (0-3) Basophils (%) (Auto) 1 % (0-3) Neutrophils # (Auto) 4.1 x10^3/uL (1.8-7.7) Lymphocytes # (Auto) 1.9 x10^3/uL (1.0-4.8) Monocytes # (Auto) 0.5 x10^3/uL (0.0-1.1) Eosinophils # (Auto) 0.0 x10^3/uL (0.0-0.7) Basophils # (Auto) 0.0 x10^3/uL (0.0-0.2) Prothrombin Time 13.6 SEC (11.7-14.0) Prothromb Time International Ratio 1.1 (0.8-1.1) Sodium Level 137 mmol/L (136-145) 142 mmol/L (136-145) Potassium Level 3.1 mmol/L (3.5-5.1) 3.6 mmol/L (3.5-5.1) Chloride Level 98 mmol/L (98-107) 103 mmol/L (98-107) Carbon Dioxide Level 30 mmol/L (21-32) 32 mmol/L (21-32) Anion Gap 9 (6-14) 7 (6-14) Blood Urea Nitrogen 13 mg/dL (7-20) 11 mg/dL (7-20) Creatinine 1.1 mg/dL (0.6-1.0) 0.9 mg/dL (0.6-1.0) Estimated GFR (Cockcroft-Gault) 58.0 73.1 BUN/Creatinine Ratio 12 (6-20) Glucose Level 175 mg/dL (70-99) 105 mg/dL (70-99) Calcium Level 8.4 mg/dL (8.5-10.1) 8.0 mg/dL (8.5-10.1) Total Bilirubin 0.4 mg/dL (0.2-1.0) Aspartate Amino Transf (AST/SGOT) 27 U/L (15-37) Alanine Aminotransferase (ALT/SGPT) 22 U/L (14-59) Alkaline Phosphatase 78 U/L (46-116) Troponin I Quantitative < 0.017 ng/mL (0.000-0.055) < 0.017 ng/mL (0.000-0.055) < 0.017 ng/mL (0.000-0.055) ZZ-[id number]-J-Type Natriuretic Peptide 57 pg/mL (0-449) Total Protein 7.6 g/dL (6.4-8.2) Albumin 3.5 g/dL (3.4-5.0) Albumin/Globulin Ratio 0.9 (1.0-1.7) Triglycerides Level 58 mg/dL (0-150) Cholesterol Level 127 mg/dL (0-200) LDL Cholesterol, Calculated 38 mg/dL (0-100) VLDL Cholesterol, Calculated 12 mg/dL (0-40) Non-HDL Cholesterol Calculated 50 mg/dL (0-129) HDL Cholesterol 77 mg/dL (40-60) Cholesterol/HDL Ratio 1.6 Medications Current Medications Aspirin (Aspirin Chewable) 324 mg 1X ONCE PO Last administered on 11/24/19at 10:54; Start 11/24/19 at 11:00; Stop 11/24/19 at 11:01; Status DC Nitroglycerin (Nitro-Bid Oint) 1 inch 1X ONCE TP Last administered on 11/24/19at 10:54; Start 11/24/19 at 11:00; Stop 11/24/19 at 11:01; Status DC Potassium Chloride (Klor-Con) 40 meq 1X ONCE PO Last administered on 11/24/19at 12:37; Start 11/24/19 at 12:00; Stop 11/24/19 at 12:01; Status DC Amlodipine Besylate (Norvasc) 10 mg DAILY PO Last administered on 11/26/19at 09:37; Start 11/25/19 at 09:00 Aspirin (Aspirin Chewable) 81 mg DAILY PO Last administered on 11/26/19at 09:36; Start 11/25/19 at 09:00 Atorvastatin Calcium (Lipitor) 20 mg DAILY PO Last administered on 11/25/19at 16:21; Start 11/25/19 at 09:00; Stop 11/26/19 at 08:57; Status DC Levothyroxine Sodium (Synthroid) 88 mcg DAILY06 PO Last administered on 11/26/19at 05:30; Start 11/25/19 at 06:00 Oxybutynin Chloride (Ditropan) 10 mg DAILY PO Last administered on 11/25/19at 16:20; Start 11/25/19 at 09:00; Stop 11/26/19 at 08:57; Status DC Pantoprazole Sodium (Protonix) 40 mg DAILYAC PO ; Start 11/25/19 at 07:30; Stop 11/24/19 at 19:39; Status DC Potassium Chloride (Klor-Con) 20 meq DAILY PO ; Start 11/25/19 at 09:00 Senna/Docusate Sodium (Senna Plus) 1 tab PRN BID PRN PO CONSTIPATION Last administered on 11/26/19at 09:37; Start 11/24/19 at 17:15 Calcium Carbonate/ Glycine (Oscal) 500 mg DAILY PO Last administered on 11/25/19at 16:21; Start 11/25/19 at 09:00; Stop 11/26/19 at 08:57; Status DC Cyanocobalamin (Vitamin B-12) 50 mcg DAILY PO Last administered on 11/26/19at 09:39; Start 11/25/19 at 09:00 Lactobacillus Rhamnosus (Culturelle) 1 cap DAILY PO Last administered on 11/26/19at 09:38; Start 11/25/19 at 09:00 Losartan Potassium (Cozaar) 100 mg DAILY PO Last administered on 11/25/19at 08:12; Start 11/25/19 at 09:00 Multivitamins (Thera M Plus) 1 tab DAILY PO Last administered on 11/25/19at 16:20; Start 11/25/19 at 09:00; Stop 11/26/19 at 08:57; Status DC Fish Oil (Fish Oil) 1,000 mg DAILY PO Last administered on 11/25/19at 16:20; Start 11/25/19 at 09:00; Stop 11/26/19 at 08:57; Status DC Potassium Chloride (Klor-Con) 40 meq 1X ONCE PO Last administered on 11/24/19at 17:52; Start 11/24/19 at 17:30; Stop 11/24/19 at 17:31; Status DC Potassium Chloride (Klor-Con) 20 meq DAILYWBKFT PO Last administered on 11/26/19at 09:36; Start 11/25/19 at 08:00 Hydrochlorothiazide (Hydrodiuril) 25 mg DAILY PO Last administered on 11/25/19at 16:21; Start 11/25/19 at 09:00 Sodium Chloride (Normal Saline Flush) 3 ml QSHIFT PRN IV AFTER MEDS AND BLOOD DRAWS; Start 11/24/19 at 17:30 Ondansetron HCl (Zofran) 4 mg PRN Q4HRS PRN IV NAUSEA/VOMITING; Start 11/24/19 at 17:30 Acetaminophen (Tylenol) 650 mg PRN Q4HRS PRN PO TEMP OVER 100.4F OR MILD PAIN Last administered on 11/25/19at 20:12; Start 11/24/19 at 17:30 Al Hydroxide/Mg Hydroxide (Mylanta Plus Xs) 30 ml PRN DAILY PRN PO HEARTBURN / GAS; Start 11/24/19 at 17:30 Docusate Sodium (Colace) 100 mg PRN BID PRN PO HARD STOOLS; Start 11/24/19 at 17:30 Albuterol Sulfate (Ventolin Neb Soln) 2.5 mg PRN Q4HRS PRN NEB SHORTNESS OF BREATH; Start 11/24/19 at 17:30 Guaifenesin (Robitussin) 200 mg PRN Q4HRS PRN PO COUGH; Start 11/24/19 at 17:30 Enoxaparin Sodium (Lovenox 40mg Syringe) 40 mg Q24H SQ Last administered on 11/25/19at 21:01; Start 11/24/19 at 21:00 Morphine Sulfate (Morphine Sulfate) 2 mg 1X ONCE IV Last administered on 11/24/19at 18:45; Start 11/24/19 at 18:45; Stop 11/24/19 at 18:49; Status DC Nitroglycerin (Nitrostat) 0.4 mg PRN Q5MIN PRN SL CHEST PAIN Last administered on 11/25/19at 10:15; Start 11/24/19 at 18:45 Morphine Sulfate (Morphine Sulfate) 10 mg STK-MED ONCE .ROUTE ; Start 11/24/19 at 18:49; Stop 11/24/19 at 18:49; Status DC Pantoprazole Sodium (Protonix) 40 mg DAILYAC PO Last administered on 11/26/19at 08:09; Start 11/24/19 at 19:30 Morphine Sulfate (Morphine Sulfate) 10 mg STK-MED ONCE .ROUTE ; Start 11/24/19 at 19:00; Stop 11/25/19 at 12:34; Status DC Fentanyl Citrate (Fentanyl 2ml Vial) 100 mcg STK-MED ONCE .ROUTE ; Start 11/25/19 at 13:58; Stop 11/25/19 at 13:58; Status DC Midazolam HCl (Versed) 5 mg STK-MED ONCE .ROUTE ; Start 11/25/19 at 13:58; Stop 11/25/19 at 13:58; Status DC Heparin Sodium (Porcine) (Heparin Sodium) 10,000 unit STK-MED ONCE .ROUTE ; Start 11/25/19 at 13:58; Stop 11/25/19 at 13:58; Status DC Verapamil HCl (Verapamil) 5 mg STK-MED ONCE .ROUTE ; Start 11/25/19 at 13:58; Stop 11/25/19 at 13:58; Status DC Nitroglycerin (Nitroglycerin) 200 mcg STK-MED ONCE .ROUTE ; Start 11/25/19 at 13:58; Stop 11/25/19 at 13:58; Status DC Lidocaine HCl (Xylocaine-Mpf 1% 2ml Vial) 2 ml STK-MED ONCE .ROUTE ; Start 11/25/19 at 14:00; Stop 11/25/19 at 14:01; Status DC Iohexol (Omnipaque 300 Mg/ml) 100 ml STK-MED ONCE .ROUTE ; Start 11/25/19 at 14:00; Stop 11/25/19 at 14:01; Status DC Heparin Sodium/ Sodium Chloride 1,000 ml @ As Directed STK-MED ONCE .ROUTE ; Start 11/25/19 at 14:00; Stop 11/25/19 at 14:01; Status DC Metoprolol Tartrate (Lopressor) 25 mg BID PO Last administered on 11/25/19at 16:20; Start 11/25/19 at 15:00 Ondansetron HCl (Zofran) 4 mg STK-MED ONCE .ROUTE ; Start 11/25/19 at 14:26; Stop 11/25/19 at 14:27; Status DC Nitroglycerin (Nitroglycerin) 200 mcg 1X ONCE IART Last administered on 11/25/19at 15:08; Start 11/25/19 at 14:45; Stop 11/25/19 at 14:54; Status DC Verapamil HCl (Verapamil) 2.5 mg 1X ONCE IART Last administered on 11/25/19at 15:10; Start 11/25/19 at 14:45; Stop 11/25/19 at 14:54; Status DC Heparin Sodium (Porcine) (Heparin Sodium) 2,500 unit 1X ONCE IART Last administered on 11/25/19at 15:14; Start 11/25/19 at 14:45; Stop 11/25/19 at 14:54 ; Status DC Heparin Sodium/ Sodium Chloride (HEPARIN for ARTERIAL LINE FLUSH) 1,000 unit 1X ONCE IART Last administered on 11/25/19at 15:08; Start 11/25/19 at 14:45; Stop 11/25/19 at 14:54; Status DC Midazolam HCl (Versed) 5 mg 1X ONCE IV Last administered on 11/25/19at 15:09; Start 11/25/19 at 14:45; Stop 11/25/19 at 14:54; Status DC Fentanyl Citrate (Fentanyl 2ml Vial) 100 mcg 1X ONCE IV Last administered on 11/25/19at 15:10; Start 11/25/19 at 14:45; Stop 11/25/19 at 14:54; Status DC Iohexol (Omnipaque 300 Mg/ml) 100 ml 1X ONCE IART Last administered on 11/25/19at 15:08; Start 11/25/19 at 14:45; Stop 11/25/19 at 14:54; Status DC Lidocaine HCl (Xylocaine-Mpf 1% 2ml Vial) 2 ml 1X ONCE INJ Last administered on 11/25/19at 15:08; Start 11/25/19 at 14:45; Stop 11/25/19 at 14:54; Status DC Sodium Chloride 1,000 ml @ 60 mls/hr [id number] IV Last administered on 11/25/19at 16:22; Start 11/25/19 at 15:35 Atorvastatin Calcium (Lipitor) 20 mg QHS PO ; Start 11/26/19 at 21:00 Calcium Carbonate/ Glycine (Oscal) 500 mg QHS PO ; Start 11/26/19 at 21:00 Multivitamins (Thera M Plus) 1 tab QHS PO ; Start 11/26/19 at 21:00 Fish Oil (Fish Oil) 1,000 mg QHS PO ; Start 11/26/19 at 21:00 Oxybutynin Chloride (Ditropan) 10 mg QHS PO ; Start 11/26/19 at 21:00 Active Scripts Active Protonix (Pantoprazole Sodium) 40 Mg Tablet 40 Mg PO DAILYAC Reported Skelaxin (Metaxalone) 800 Mg Tablet 800 Mg PO PRN Q6HRS PRN Ibuprofen 800 Mg Tablet 800 PRN PRN [Potassium] 10 Tab BID Potassium Chloride (Potassium Chloride) 20 Meq Tablet.er 20 Meq PO DAILY Levothyroxine Sodium 88 Mcg Tablet 1 Tab PO DAILY Metformin Hcl 500 Mg Tablet 500 Mg PO BIDWMEALS Atorvastatin Calcium 20 Mg Tablet 20 Mg PO QHS Norvasc (Amlodipine Besylate) 10 Mg Tablet 10 Mg PO DAILY Aspirin 81 Mg Tab.chew 1 Tab PO DAILY Senokot-S Tablet (Sennosides/Docusate Sodium) 1 Each Tablet 1 Each PO Probiotic Complex (Lactobacillus Combo No.6) 1 Each Tablet 1 Each PO DAILY Vitamin B-12 (Cyanocobalamin (Vitamin B-12)) 50 Mcg Tablet 50 Mcg PO DAILY Calcium (Calcium Carbonate) 500 Mg Tab.chew 500 Mg PO QHS Fish Oil ([place]-3 Fatty Acids) 300 Mg Capsule 300 Mg PO QHS Multi-Vitamin Daily (Multivitamin) 1 Each Tablet 1 Each PO QHS Losartan-Hctz 100-25 Mg Tab (Losartan/Hydrochlorothiazide) 1 Each Tablet 1 Each PO DAILY Vitals/I & O Vital Sign - Last 24 Hours 11/25/19 11/25/19 11/25/19 11/25/19 10:22 14:24 15:10 15:10 Temp 98.4 98.4 Pulse 97 85 109 Resp 16 18 B/P (MAP) 160/89 (112) 130/73 (92) 182/91 Pulse Ox 94 97 100 O2 Delivery Room Air Nasal Cannula O2 Flow Rate 2.0 11/25/19 11/25/19 11/25/19 11/25/19 15:21 15:45 16:00 16:15 Pulse 110 99 96 104 Resp 19 B/P (MAP) 156/75 (102) 127/72 (90) 144/74 (97) Pulse Ox 100 O2 Delivery Nasal Cannula O2 Flow Rate 2.0 11/25/19 11/25/19 11/25/19 11/25/19 16:20 19:00 19:10 20:30 Temp 98.5 98.5 Pulse 104 75 Resp 18 B/P (MAP) 127/72 105/77 (86) Pulse Ox 95 O2 Delivery Room Air Room Air Room Air 11/25/19 11/26/19 11/26/19 11/26/19 23:20 03:00 03:00 07:00 Temp 98.0 98.7 98.7 98.0 98.7 98.7 Pulse 69 75 74 80 Resp 18 18 18 B/P (MAP) 127/62 (83) 116/74 (88) 125/62 (83) Pulse Ox 95 95 99 O2 Delivery Room Air Room Air Room Air 11/26/19 09:37 B/P (MAP) 125/62 Intake and Output 11/25/19 11/25/19 11/26/19 15:00 23:00 07:00 Intake Total 300 ml Output Total 600 ml 250 ml 350 ml Balance -600 ml -250 ml -50 ml Justicifation of Admission Dx: Justifications for Admission: Justification of Admission Dx: Yes Angina: [place] Worsening of Sym JANIYA DOE MD Nov 26, 2019 10:18
[2019-11-26 11:00] VITALS: BP 115/61
--- NOTE | 2019-11-26 12:48 | PDOC3 ---
Discharge Summary Date of Admission: Nov 24, 2019 Date of Discharge: Nov 26, 2019 Follow-Up: 1-2 days Admitting Diagnosis comment: discharge dx Assessment/Plan Impression: Chest pain, unstable angina Hypokalemia HYPERTENSION Hyperlipidemia GERD ADMITTED cvc bed trend troponin i neg consult cardiology HOME MEDS DVT PROPHYLAXIS protonix po 40 mg daily cath MODERATE SEDATION TIME:52 MINS FLUORO TIME: 11.1 MIN DOSE: 42.5 GYCM2 CONTRAST: 116CC OMNI 300 INDICATION The indication(s) include : unstable angina . [facility] Clinical Frailty Scale [facility] Clinical Frailty Scale: Mildly Frail Heart Failure Heart Failure: No PROCEDURE NARRATIVE After explaining the risks, benefits and alternative options, informed consent was obtained from patient. Patient was brought to the cardiac [facility] and right wrist was prepped and draped in the usual fashion after confirming a positive modified Pineda's test. Arterial access was obtained in the right radial artery and a 6 [place]er sheath was inserted. 6 [place] JL 3.5 and 6 [place] JR4 catheters were used to perform selective angiography of the left and right coronary arteries after initial attempts to engage these vessels using 6 [place]er Gui catheter were unsuccessful. 6 [place] pigtail catheter was used to perform left ventriculography. Patient tolerated the procedure well. Hemostasis was achieved using TR band. There were no immediate complications. The following findings were noted. FINDINGS 1. Hemodynamics: Left ventricular end-diastolic pressure of 11 mmHg. No pullback gradient across the aortic valve. 2. Left ventriculography: Normal left ventricle systolic function with ejection fraction estimated at 55%. No significant mitral regurgitation seen. 3. Coronary angiography: a. The left main coronary artery arose from the left sinus of Valsalva, gave rise to the left anterior descending and left circumflex arteries and did not show any significant stenosis. b. The left anterior descending artery did not show any significant stenosis. c. The left circumflex artery was a large and dominant vessel that did not show any significant stenosis. d. The right coronary artery was a small and nondominant vessel arising from the right sinus of Valsalva that did not show any significant stenosis. Conclusion 1. Left dominant system without any significant coronary artery disease. 2. Normal left ventricle systolic function with ejection fraction estimated at 55%. Signed by : Dawood Ayala, Electronically Approved : 11/25/2019 15:40:23 DICTATED and SIGNED BY: DAWOOD AYALA MD DATE: 11/25/19 1526 37 min pt exam, chart review d/c planning , > 50% of time spent with exam, chart review, pt care coordination Justicifation of Admission Dx: Justicifation of Admission Dx: Justifications for Admission: Justification of Admission Dx: Yes Angina: Cresendo Worsening of Sym Vitals Vitals Vital Signs Date Time Temp Pulse Resp B/P (MAP) Pulse Ox O2 Delivery O2 Flow Rate FiO2 11/26/19 09:37 125/62 11/26/19 07:00 98.7 80 18 99 Room Air 98.7 11/25/19 15:21 2.0 Physical Exam General: Alert, Oriented X3, Cooperative, No acute distress Heart: Regular rate, Normal S1 Lungs: Clear, Other Abdomen: Normal bowel sounds, Soft Extremities: No clubbing, No cyanosis, No edema FINAL DIAGNOSIS Problems Medical Problems: (1) Chest pain Status: Acute Brief Hospital Course Ms. Lr is a 79 old [sex] who presented with [unstable angina ] CONDITION AT DISCHARGE: Improved Discharge Medications Current Medications Aspirin (Aspirin Chewable) 324 mg 1X ONCE PO Last administered on 11/24/19at 10:54; Start 11/24/19 at 11:00; Stop 11/24/19 at 11:01; Status DC Nitroglycerin (Nitro-Bid Oint) 1 inch 1X ONCE TP Last administered on 11/24/19at 10:54; Start 11/24/19 at 11:00; Stop 11/24/19 at 11:01; Status DC Potassium Chloride (Klor-Con) 40 meq 1X ONCE PO Last administered on 11/24/19at 12:37; Start 11/24/19 at 12:00; Stop 11/24/19 at 12:01; Status DC Amlodipine Besylate (Norvasc) 10 mg DAILY PO Last administered on 11/26/19at 09:37; Start 11/25/19 at 09:00 Aspirin (Aspirin Chewable) 81 mg DAILY PO Last administered on 11/26/19at 09:36; Start 11/25/19 at 09:00 Atorvastatin Calcium (Lipitor) 20 mg DAILY PO Last administered on 11/25/19at 16:21; Start 11/25/19 at 09:00; Stop 11/26/19 at 08:57; Status DC Levothyroxine Sodium (Synthroid) 88 mcg DAILY06 PO Last administered on 11/26/19at 05:30; Start 11/25/19 at 06:00 Oxybutynin Chloride (Ditropan) 10 mg DAILY PO Last administered on 11/25/19at 16:20; Start 11/25/19 at 09:00; Stop 11/26/19 at 08:57; Status DC Pantoprazole Sodium (Protonix) 40 mg DAILYAC PO ; Start 11/25/19 at 07:30; Stop 11/24/19 at 19:39; Status DC Potassium Chloride (Klor-Con) 20 meq DAILY PO ; Start 11/25/19 at 09:00 Senna/Docusate Sodium (Senna Plus) 1 tab PRN BID PRN PO CONSTIPATION Last administered on 11/26/19at 09:37; Start 11/24/19 at 17:15 Calcium Carbonate/ Glycine (Oscal) 500 mg DAILY PO Last administered on 11/25/19at 16:21; Start 11/25/19 at 09:00; Stop 11/26/19 at 08:57; Status DC Cyanocobalamin (Vitamin B-12) 50 mcg DAILY PO Last administered on 11/26/19at 09:39; Start 11/25/19 at 09:00 Lactobacillus Rhamnosus (Culturelle) 1 cap DAILY PO Last administered on 11/26/19at 09:38; Start 11/25/19 at 09:00 Losartan Potassium (Cozaar) 100 mg DAILY PO Last administered on 11/25/19at 08:12; Start 11/25/19 at 09:00 Multivitamins (Thera M Plus) 1 tab DAILY PO Last administered on 11/25/19at 16:20; Start 11/25/19 at 09:00; Stop 11/26/19 at 08:57; Status DC Fish Oil (Fish Oil) 1,000 mg DAILY PO Last administered on 11/25/19at 16:20; Start 11/25/19 at 09:00; Stop 11/26/19 at 08:57; Status DC Potassium Chloride (Klor-Con) 40 meq 1X ONCE PO Last administered on 11/24/19at 17:52; Start 11/24/19 at 17:30; Stop 11/24/19 at 17:31; Status DC Potassium Chloride (Klor-Con) 20 meq DAILYWBKFT PO Last administered on 11/26/19at 09:36; Start 11/25/19 at 08:00 Hydrochlorothiazide (Hydrodiuril) 25 mg DAILY PO Last administered on 11/25/19at 16:21; Start 11/25/19 at 09:00 Sodium Chloride (Normal Saline Flush) 3 ml QSHIFT PRN IV AFTER MEDS AND BLOOD DRAWS; Start 11/24/19 at 17:30 Ondansetron HCl (Zofran) 4 mg PRN Q4HRS PRN IV NAUSEA/VOMITING; Start 11/24/19 at 17:30 Acetaminophen (Tylenol) 650 mg PRN Q4HRS PRN PO TEMP OVER 100.4F OR MILD PAIN Last administered on 11/25/19at 20:12; Start 11/24/19 at 17:30 Al Hydroxide/Mg Hydroxide (Mylanta Plus Xs) 30 ml PRN DAILY PRN PO HEARTBURN / GAS; Start 11/24/19 at 17:30 Docusate Sodium (Colace) 100 mg PRN BID PRN PO HARD STOOLS; Start 11/24/19 at 17:30 Albuterol Sulfate (Ventolin Neb Soln) 2.5 mg PRN Q4HRS PRN NEB SHORTNESS OF BREATH; Start 11/24/19 at 17:30 Guaifenesin (Robitussin) 200 mg PRN Q4HRS PRN PO COUGH; Start 11/24/19 at 17:30 Enoxaparin Sodium (Lovenox 40mg Syringe) 40 mg Q24H SQ Last administered on 11/25/19at 21:01; Start 11/24/19 at 21:00 Morphine Sulfate (Morphine Sulfate) 2 mg 1X ONCE IV Last administered on 11/24/19at 18:45; Start 11/24/19 at 18:45; Stop 11/24/19 at 18:49; Status DC Nitroglycerin (Nitrostat) 0.4 mg PRN Q5MIN PRN SL CHEST PAIN Last administered on 11/25/19at 10:15; Start 11/24/19 at 18:45 Morphine Sulfate (Morphine Sulfate) 10 mg STK-MED ONCE .ROUTE ; Start 11/24/19 at 18:49; Stop 11/24/19 at 18:49; Status DC Pantoprazole Sodium (Protonix) 40 mg DAILYAC PO Last administered on 11/26/19at 08:09; Start 11/24/19 at 19:30 Morphine Sulfate (Morphine Sulfate) 10 mg STK-MED ONCE .ROUTE ; Start 11/24/19 at 19:00; Stop 11/25/19 at 12:34; Status DC Fentanyl Citrate (Fentanyl 2ml Vial) 100 mcg STK-MED ONCE .ROUTE ; Start 11/25/19 at 13:58; Stop 11/25/19 at 13:58; Status DC Midazolam HCl (Versed) 5 mg STK-MED ONCE .ROUTE ; Start 11/25/19 at 13:58; Stop 11/25/19 at 13:58; Status DC Heparin Sodium (Porcine) (Heparin Sodium) 10,000 unit STK-MED ONCE .ROUTE ; Start 11/25/19 at 13:58; Stop 11/25/19 at 13:58; Status DC Verapamil HCl (Verapamil) 5 mg STK-MED ONCE .ROUTE ; Start 11/25/19 at 13:58; Stop 11/25/19 at 13:58; Status DC Nitroglycerin (Nitroglycerin) 200 mcg STK-MED ONCE .ROUTE ; Start 11/25/19 at 13:58; Stop 11/25/19 at 13:58; Status DC Lidocaine HCl (Xylocaine-Mpf 1% 2ml Vial) 2 ml STK-MED ONCE .ROUTE ; Start 11/25/19 at 14:00; Stop 11/25/19 at 14:01; Status DC Iohexol (Omnipaque 300 Mg/ml) 100 ml STK-MED ONCE .ROUTE ; Start 11/25/19 at 14:00; Stop 11/25/19 at 14:01; Status DC Heparin Sodium/ Sodium Chloride 1,000 ml @ As Directed STK-MED ONCE .ROUTE ; Start 11/25/19 at 14:00; Stop 11/25/19 at 14:01; Status DC Metoprolol Tartrate (Lopressor) 25 mg BID PO Last administered on 11/25/19at 16:20; Start 11/25/19 at 15:00 Ondansetron HCl (Zofran) 4 mg STK-MED ONCE .ROUTE ; Start 11/25/19 at 14:26; Stop 11/25/19 at 14:27; Status DC Nitroglycerin (Nitroglycerin) 200 mcg 1X ONCE IART Last administered on 11/25/19at 15:08; Start 11/25/19 at 14:45; Stop 11/25/19 at 14:54; Status DC Verapamil HCl (Verapamil) 2.5 mg 1X ONCE IART Last administered on 11/25/19at 15:10; Start 11/25/19 at 14:45; Stop 11/25/19 at 14:54; Status DC Heparin Sodium (Porcine) (Heparin Sodium) 2,500 unit 1X ONCE IART Last administered on 11/25/19at 15:14; Start 11/25/19 at 14:45; Stop 11/25/19 at 14:54; Status DC Heparin Sodium/ Sodium Chloride (HEPARIN for ARTERIAL LINE FLUSH) 1,000 unit 1X ONCE IART Last administered on 11/25/19at 15:08; Start 11/25/19 at 14:45; Stop 11/25/19 at 14:54; Status DC Midazolam HCl (Versed) 5 mg 1X ONCE IV Last administered on 11/25/19at 15:09; Start 11/25/19 at 14:45; Stop 11/25/19 at 14:54; Status DC Fentanyl Citrate (Fentanyl 2ml Vial) 100 mcg 1X ONCE IV Last administered on 11/25/19at 15:10; Start 11/25/19 at 14:45; Stop 11/25/19 at 14:54; Status DC Iohexol (Omnipaque 300 Mg/ml) 100 ml 1X ONCE IART Last administered on 11/25/19at 15:08; Start 11/25/19 at 14:45; Stop 11/25/19 at 14:54; Status DC Lidocaine HCl (Xylocaine-Mpf 1% 2ml Vial) 2 ml 1X ONCE INJ Last administered on 11/25/19at 15:08; Start 11/25/19 at 14:45; Stop 11/25/19 at 14:54; Status DC Sodium Chloride 1,000 ml @ 60 mls/hr [id number] IV Last administered on 11/25/19at 16:22; Start 11/25/19 at 15:35 Atorvastatin Calcium (Lipitor) 20 mg QHS PO ; Start 11/26/19 at 21:00 Calcium Carbonate/ Glycine (Oscal) 500 mg QHS PO ; Start 11/26/19 at 21:00 Multivitamins (Thera M Plus) 1 tab QHS PO ; Start 11/26/19 at 21:00 Fish Oil (Fish Oil) 1,000 mg QHS PO ; Start 11/26/19 at 21:00 Oxybutynin Chloride (Ditropan) 10 mg QHS PO ; Start 11/26/19 at 21:00 Active Scripts Active Protonix (Pantoprazole Sodium) 40 Mg Tablet 40 Mg PO DAILYAC Reported Skelaxin (Metaxalone) 800 Mg Tablet 800 Mg PO PRN Q6HRS PRN Ibuprofen 800 Mg Tablet 800 PRN PRN [Potassium] 10 Tab BID Potassium Chloride (Potassium Chloride) 20 Meq Tablet.er 20 Meq PO DAILY Levothyroxine Sodium 88 Mcg Tablet 1 Tab PO DAILY Metformin Hcl 500 Mg Tablet 500 Mg PO BIDWMEALS Atorvastatin Calcium 20 Mg Tablet 20 Mg PO QHS Norvasc (Amlodipine Besylate) 10 Mg Tablet 10 Mg PO DAILY Aspirin 81 Mg Tab.chew 1 Tab PO DAILY Senokot-S Tablet (Sennosides/Docusate Sodium) 1 Each Tablet 1 Each PO Probiotic Complex (Lactobacillus Combo No.6) 1 Each Tablet 1 Each PO DAILY Vitamin B-12 (Cyanocobalamin (Vitamin B-12)) 50 Mcg Tablet 50 Mcg PO DAILY Calcium (Calcium Carbonate) 500 Mg Tab.chew 500 Mg PO QHS Fish Oil ([place]on-3 Fatty Acids) 300 Mg Capsule 300 Mg PO QHS Multi-Vitamin Daily (Multivitamin) 1 Each Tablet 1 Each PO QHS Losartan-Hctz 100-25 Mg Tab (Losartan/Hydrochlorothiazide) 1 Each Tablet 1 Each PO DAILY Vital Signs Vital Signs Date Time Temp Pulse Resp B/P (MAP) Pulse Ox O2 Delivery O2 Flow Rate FiO2 11/26/19 09:37 125/62 11/26/19 08:00 Room Air 11/26/19 07:00 98.7 80 18 99 98.7 11/25/19 15:21 2.0 Labs Laboratory Tests Test 11/24/19 16:15 11/24/19 16:30 11/25/19 04:37 Troponin I Quantitative < 0.017 ng/mL (0.000-0.055) < 0.017 ng/mL (0.000-0.055) Sodium Level 142 mmol/L (136-145) Potassium Level 3.6 mmol/L (3.5-5.1) Chloride Level 103 mmol/L (98-107) Carbon Dioxide Level 32 mmol/L (21-32) Anion Gap 7 (6-14) Blood Urea Nitrogen 11 mg/dL (7-20) Creatinine 0.9 mg/dL (0.6-1.0) Estimated GFR (Cockcroft-Gault) 73.1 Glucose Level 105 mg/dL (70-99) Calcium Level 8.0 mg/dL (8.5-10.1) Triglycerides Level 58 mg/dL (0-150) Cholesterol Level 127 mg/dL (0-200) LDL Cholesterol, Calculated 38 mg/dL (0-100) VLDL Cholesterol, Calculated 12 mg/dL (0-40) Non-HDL Cholesterol Calculated 50 mg/dL (0-129) HDL Cholesterol 77 mg/dL (40-60) Cholesterol/HDL Ratio 1.6 Allergies Allergies Coded Allergies Type Severity Reaction Last Updated Verified Cephalexin Monohydrate Allergy Intermediate Rash 09/15/18 Yes Penicillins Allergy Intermediate Rash 09/15/18 Yes doxycycline Allergy Intermediate Rash 09/15/18 Yes Disposition/Orders: D/C to Home Justicifation of Admission Dx: Justifications for Admission: Justification of Admission Dx: Yes Angina: Cresendo Worsening of Sym JANIYA DOE MD Nov 26, 2019 12:48
[2019-11-26] MEDS ORDERED: METO25TA4 PO (12:51)
[2019-11-26] MEDS ORDERED: GUAI100L12 PO (12:51)
[2019-11-26] MEDS ORDERED: ACET325T9 PO (12:51)
[2019-11-26] MEDS ORDERED: DOCU-153 PO (12:51)
--- NOTE | 2019-11-26 12:52 | DISCH ---
DISCHARGE INSTRUCTIONS Condition on Discharge Condition on Discharge: Stable Activity After Discharge Activity Instructions for Disc: Activity as tolerated Bathing Instructions: Shower-keep dressing dry Lifting Instructions after Dis: No heavy lifting Exercise Instruction after Dis: Progress as tolerated Driving Instructions after Dis: Do not drive today Weight Bearing Status after Di: As tolerated Diet after Discharge Diet after Discharge: Cardiac, Diabetic No Calorie Level Diet Texture: Regular Liquid Texture: Thin Liquid Swallowing Supervision: None needed Wound Incision Care Wound/Incision Care: No wound care needed Checks after Discharge Checks after discharge: Check blood press - daily, Check blood sugar, ac/hs Contacting the DR. after DC Call your doctor for: If your condition worsens Treatment/Equipment after DC Adaptive Equipment Issued: None, Walker Warfarin Follow-Up Warfarin Follow UP: see pcp next week JANIYA DOE MD Nov 26, 2019 12:52
--- NOTE | 2019-11-26 15:00 | NUR ---
Discharge Note: [facility] Discharge instructions and discharge home medications reviewed with Patient and a copy given. All questions have been answered and understanding verbalized. The following instructions and handouts were given: s/p cath education, medication list, diwscharge instructions Discontinued lines and drains: peripheral IV, dressing clean, dry and intact. Patient discharged to home with family via wheelchair
[2019-11-26] MEDS ORDERED: CALCIUM CARBONATE 500 MG TABLET PO SCH (21:00)
[2019-11-26] MEDS ORDERED: OMEGA-3 FATTY ACIDS/FISH OIL 1,000 MG CAPSULE. PO SCH (21:00)
[2019-11-26] MEDS ORDERED: ATORVASTATIN CALCIUM 20 MG TABLET PO SCH (21:00)
[2019-11-26] MEDS ORDERED: OXYBUTYNIN CHLORIDE 5 MG TABLET PO SCH (21:00)
[2019-11-26] MEDS ORDERED: MULTIVITAMIN with MINERAL TABLET. PO SCH (21:00)
== END 2019-11-26 15:05 | disposition home or self-care (01) | DRG 287 ==
LOC: ER 10:20 → 2 SOUTH 12:45
PROVIDERS: ADMIT Family Medicine; ATTEND Family Medicine
PROC: 4A023N7 Measurement of Cardiac Sampling and Pressure, Left Heart, Percutaneous Approach (ICD-10-PCS; principal; 2019-11-25)
PROC: B2111ZZ Fluoroscopy of Multiple Coronary Arteries using Low Osmolar Contrast (ICD-10-PCS; 2019-11-25)
PROC: B2151ZZ Fluoroscopy of Left Heart using Low Osmolar Contrast (ICD-10-PCS; 2019-11-25)
DX: I20.0 Unstable angina (principal); K21.9 Gastro-esophageal reflux disease without esophagitis; E03.9 Hypothyroidism, unspecified; E11.9 Type 2 diabetes mellitus without complications; E87.6 Hypokalemia; E78.5 Hyperlipidemia, unspecified; I10 Essential (primary) hypertension; Z90.710 Acquired absence of both cervix and uterus; Z88.1 Allergy status to other antibiotic agents; Z88.0 Allergy status to penicillin; Z88.8 Allergy status to other drugs, medicaments and biological substances; Z82.49 Family history of ischemic heart disease and other diseases of the circulatory system
CPT/HCPCS: 36415; 71045; 80048; 80053; 80061; 83880; 84484; 85025; 85610; 93005; 93458; 99152; 99153; 99285; C1769; C1892; J1644; J1650; J2250; J2270; J3010; J3490; Q9967; G0378

== ENCOUNTER 2020-04-14 16:09 | Emergency (ER) | payer MEDICARE ==
[~2020-04-14] VITALS: Ht 167.6 cm; Wt 77.0 kg
[~2020-04-14 16:09] MED LIST changes: +ACET325T9 PO; +DOCU-153 PO; +GUAI100L12 PO; +IBUP800T19; +META-21 PO; +METO25TA4 PO; +POTASSIUM
[2020-04-14 17:55] LABS: BASO % 1 % (0-3); EOS % 1 % (0-3); HEMATOCRIT 35.3 % (36.0-47.0); HEMOGLOBIN 11.4 g/dL (12.0-15.5); LYMPH % 24 % (24-48); MEAN CORPUSCULAR HEMOGLOBIN 26 pg (25-35); MEAN CORPUSCULAR HGB CONC 32 g/dL (31-37); MEAN CORPUSCULAR VOLUME 81 fL (79-100); MONO # 0.6 x10^3/uL (0.0-1.1); MONO % 13 % (0-9); NEUT # 2.7 x10^3/uL (1.8-7.7); NEUT % 63 % (31-73); PLATELET COUNT 178 x10^3/uL (140-400); RED BLOOD COUNT 4.38 x10^6/uL (3.50-5.40); RED CELL DISTRIBUTION WIDTH 14.7 % (11.5-14.5); WHITE BLOOD COUNT 4.3 x10^3/uL (4.0-11.0)
[2020-04-14] MEDS ORDERED: HYDROcodon/APAP 7.5/325MG ORAL 15 ML SOLUTION PO ONE (18:00)
[2020-04-14 18:09] LABS: CALCIUM 8.3 mg/dL (8.5-10.1); CREATININE 0.9 mg/dL (0.6-1.0); GFR 73.1
[2020-04-14 18:14] LABS: ALBUMIN 3.4 g/dL (3.4-5.0); ALBUMIN/GLOBULIN RATIO 0.9 (1.0-1.7); MAGNESIUM 1.7 mg/dL (1.8-2.4); TOTAL BILIRUBIN 0.2 mg/dL (0.2-1.0)
--- NOTE | 2020-04-14 18:46 | RAD ---
Exam: Chest one view INDICATION: Chest pain TECHNIQUE: Frontal view of the chest Comparisons: 11/24/2019 FINDINGS: The cardiomediastinal silhouette and pulmonary vessels are within normal limits. The lung and pleural spaces are clear. IMPRESSION: No acute cardiopulmonary process. Electronically signed by: Conrad Lorenzo MD (04/14/2020 6:42 PM) ZOE
[2020-04-14 19:30] VITALS: BP 156/72
[2020-04-14] MEDS ORDERED: POTASSIUM CHLORIDE 20 MEQ TABLET.ER. PO ONE (19:45)
[2020-04-14] MEDS ORDERED: CYCL10TA2 PO (20:26)
--- NOTE | 2020-04-14 20:26 | PHYS DOC ---
Past Medical History Past Medical History: Diabetes-Type II, GERD, Hypertension, Hypothyroid Additional Past Medical Histor: tinnitis (ANNABELLE NATH APRN) Past Surgical History: Hysterectomy, Other Additional Past Surgical Histo: thyroidectomy; hemorrhoidectomy (ANNABELLE NATH APRN) Smoking Status: Former Smoker Alcohol Use: None Drug Use: None (ANNABELLE NATH APRN) General Adult EDM: Chief Complaint: COUGH HPI: HPI: Patient is a 79 year old female with history of hypertension, diabetes type 2, high cholesterol, acid reflux, who presents to the ED today complaining of 4 out of 10 low back pain, throbbing headache, cough, and sore gums, symptoms began 2 days ago. Denies any fever. Denies any injuries. Denies anything specifically exacerbating or relieving her symptoms. Denies any pain radiating to bilateral lower extremities. (ANNABELLE NATH APRN) Review of Systems: Review of Systems: Constitutional: Denies fever or chills. [] Eyes: Denies change in visual acuity. [] HENT: Reports sore gums. Denies nasal congestion or sore throat. [] Respiratory: Reports cough, denies shortness of breath. [] Cardiovascular: Denies chest pain or edema. [] GI: Denies abdominal pain, nausea, vomiting, bloody stools or diarrhea. [] : Denies dysuria. [] Musculoskeletal: Reports low back pain Integument: Denies rash. [] Neurologic: Reports headache, denies focal weakness or sensory changes. [] Psychiatric: Denies depression or anxiety. [] (ANNABELLE NATH APRN) Heart Score: Risk Factors: Risk Factors: DM, Current or recent (<one month) smoker, HTN, HLP, family history of CAD, obesity. Risk Scores: Score 0 - 3: 2.5% MACE over next 6 weeks - Discharge Home Score 4 - 6: 20.3% MACE over next 6 weeks - Admit for Clinical Observation Score 7 - 10: 72.7% MACE over next 6 weeks - Early Invasive Strategies (ANNABELLE NATH APRN) Current Medications: Current Medications Medications (Trade) Dose Ordered Sig/Wood Start Time Stop Time Status Last Admin Dose Admin Acetaminophen/ Hydrocodone Bitart (Lortab 7.5-325/ 15ml Oral Solution) 15 ml 1X ONCE 04/14/20 18:00 04/14/20 18:01 DC 04/14/20 18:41 15 ML Potassium Chloride (Klor-Con) 40 meq 1X ONCE 04/14/20 19:45 04/14/20 19:47 DC (ANNABELLE NATH [employer]) Allergies: Allergies: Allergies Coded Allergies Type Severity Reaction Last Updated Verified Cephalexin Monohydrate Allergy Intermediate Rash 09/15/18 Yes Penicillins Allergy Intermediate Rash 09/15/18 Yes doxycycline Allergy Intermediate Rash 09/15/18 Yes (ANNABELLE NATH [employer]) Physical Exam: PE: Constitutional: Well developed, well nourished, no acute distress, non-toxic appearance. [] HENT: Normocephalic, atraumatic, bilateral external ears normal, oropharynx moist, no oral exudates, nose normal. [] Eyes: PERRLA, EOMI, conjunctiva normal, no discharge. [] Neck: Normal range of motion, no tenderness, supple, no stridor. [] Cardiovascular:Heart rate regular rhythm, no murmur [] Lungs & Thorax: Bilateral breath sounds clear to auscultation [] Abdomen: Bowel sounds normal, soft, no tenderness, no masses, no pulsatile masses. [] Skin: Warm, dry, no erythema, no rash. [] Back: No tenderness, no CVA tenderness. [] Extremities: No tenderness, no cyanosis, no clubbing, ROM intact, no edema. [] Neurologic: Alert and oriented X 3, normal motor function, normal sensory function, no focal deficits noted. [] Psychologic: Affect normal, judgement normal, mood normal. [] (ANNABELLE NATH [employer]) Current Patient Data: Labs: Laboratory Tests Test 04/14/20 17:25 White Blood Count 4.3 x10^3/uL (4.0-11.0) Red Blood Count 4.38 x10^6/uL (3.50-5.40) Hemoglobin 11.4 g/dL (12.0-15.5) L Hematocrit 35.3 % (36.0-47.0) L Mean Corpuscular Volume 81 fL (79-100) Mean Corpuscular Hemoglobin 26 pg (25-35) Mean Corpuscular Hemoglobin Concent 32 g/dL (31-37) Red Cell Distribution Width 14.7 % (11.5-14.5) H Platelet Count 178 x10^3/uL (140-400) Neutrophils (%) (Auto) 63 % (31-73) Lymphocytes (%) (Auto) 24 % (24-48) Monocytes (%) (Auto) 13 % (0-9) H Eosinophils (%) (Auto) 1 % (0-3) Basophils (%) (Auto) 1 % (0-3) Neutrophils # (Auto) 2.7 x10^3/uL (1.8-7.7) Lymphocytes # (Auto) 1.0 x10^3/uL (1.0-4.8) Monocytes # (Auto) 0.6 x10^3/uL (0.0-1.1) Eosinophils # (Auto) 0.0 x10^3/uL (0.0-0.7) Basophils # (Auto) 0.0 x10^3/uL (0.0-0.2) Sodium Level 139 mmol/L (136-145) Potassium Level 3.0 mmol/L (3.5-5.1) L Chloride Level 99 mmol/L (98-107) Carbon Dioxide Level 29 mmol/L (21-32) Anion Gap 11 (6-14) Blood Urea Nitrogen 12 mg/dL (7-20) Creatinine 0.9 mg/dL (0.6-1.0) Estimated GFR (Cockcroft-Gault) 73.1 BUN/Creatinine Ratio 13 (6-20) Glucose Level 89 mg/dL (70-99) Calcium Level 8.3 mg/dL (8.5-10.1) L Magnesium Level 1.7 mg/dL (1.8-2.4) L Total Bilirubin 0.2 mg/dL (0.2-1.0) Aspartate Amino Transferase (AST) 22 U/L (15-37) Alanine Aminotransferase (ALT) 19 U/L (14-59) Alkaline Phosphatase 78 U/L (46-116) Troponin I Quantitative < 0.017 ng/mL (0.000-0.055) HX-Mxv-J-Type Natriuretic Peptide 81 pg/mL (0-449) Total Protein 7.0 g/dL (6.4-8.2) Albumin 3.4 g/dL (3.4-5.0) Albumin/Globulin Ratio 0.9 (1.0-1.7) L Lipase 89 U/L (73-393) Laboratory Tests 04/14/20 17:25 Laboratory Tests 04/14/20 17:25 Vital Signs: Vital Signs Date Time Temp Pulse Resp B/P (MAP) Pulse Ox O2 Delivery O2 Flow Rate FiO2 04/14/20 19:30 83 15 156/72 (100) 93 Room Air 04/14/20 16:50 98.7 98.7 (ANNABELLE NATH APRN) EKG: EKG: [] (ANNABELLE NATH APRN) Radiology/Procedures: Radiology/Procedures: []PROCEDURE: PORTABLE CHEST 1V Exam: Chest one view INDICATION: Chest pain TECHNIQUE: Frontal view of the chest Comparisons: 11/24/2019 FINDINGS: The cardiomediastinal silhouette and pulmonary vessels are within normal limits. The lung and pleural spaces are clear. IMPRESSION: No acute cardiopulmonary process. Electronically signed by: Conrad Denny MD (04/14/2020 6:42 PM) [facility] DICTATED and SIGNED BY: CONRAD DENNY MD DATE: 04/14/20 [id number] 0 (ANNABELLE NATH APRN) Course & Med Decision Making: Course & Med Decision Making Pertinent Labs and Imaging studies reviewed. (See chart for details) This is a 79-year-old female patient presenting to the ED today with multiple symptoms including low back pain, headache, cough, symptoms for 2 days. No feve r. Chest x-ray interpreted by radiologist as negative. CBC with no acute findings, CMP with potassium of 3.0, patient was given oral potassium replacement in the ED. She states she is on a potassium tablet at home. Discharge to home. Follow-up with PCP next week she was tested for COVID-19. Results will be called to her next week (ANNABELLE NATH APRN) Dragon Disclaimer: Dragon Disclaimer: This electronic medical record was generated, in whole or in part, using a voice recognition dictation system. (ANNABELLE NATH APRN) Departure Departure Impression: Primary Impression: Cough Additional Impressions: Hypokalemia Back pain Qualified Codes: M54.5 - Low back pain Person under investigation for COVID-19 Disposition: 01 DC HOME SELF CARE/HOMELESS Condition: STABLE Referrals: MARY MONSIVAIS MD (PCP) follow up next week Patient Instructions: Cough, Adult, Ycka-gg-Mrct, Hypokalemia-Brief Additional Instructions: You were evaluated in the emergency room, your chest x-ray was negative for any acute findings. We wrote you medicines to help with your symptoms. Follow-up with your doctor in 1 to 2 weeks Scripts Cyclobenzaprine Hcl (CYCLOBENZAPRINE HCL) 10 Mg Tablet 1 TAB PO TID, #30 TAB Prov: ANNABELLE NATH APRN 04/14/20 Attending Signature Attending Signature I have reviewed the PA/SIGNALS INTELLIGENCE ANALYSIS MANAGER's note and plan of care. I was available for consultation as needed during the patient's visit in the emergency department. I agree with the clinical impression, plan, and disposition. (MAYR JOHNSON DO) ANNABELLE NATH APRN Apr 14, 2020 20:26 MARY JOHNSON DO Apr 15, 2020 00:09
== END 2020-04-14 20:40 | disposition home or self-care (01) ==
LOC: ER 16:09
DX: U07.1 COVID-19 (principal); M54.5 Low back pain; R05 Cough; R51.9 Headache, unspecified; E23.2 Diabetes insipidus; K21.9 Gastro-esophageal reflux disease without esophagitis; I10 Essential (primary) hypertension; E03.9 Hypothyroidism, unspecified; Z90.710 Acquired absence of both cervix and uterus; Z90.89 Acquired absence of other organs; Z87.891 Personal history of nicotine dependence; Z98.890 Other specified postprocedural states; Z88.0 Allergy status to penicillin; Z88.1 Allergy status to other antibiotic agents; Z88.8 Allergy status to other drugs, medicaments and biological substances
CPT/HCPCS: 36415; 71045; 80053; 83690; 83735; 83880; 84484; 85025; 99285; U0003; C9803

== ENCOUNTER → 2020-10-25 | Outpatient (CLI) | payer MEDICARE ==
[2020-04-25 11:24] VITALS: BP 157/81
[~2020-10-25] MED LIST changes: +CALC500T30 PO; +CYCL10TA2 PO; +ERGO500089 PO; +HYDR25TA10 PO; +LOSA100T14 PO
--- NOTE | 2020-10-25 11:04 | RAD ---
PROCEDURE: MG BILAT SCREEN+BLADIMIR HISTORY: The patient is 80 years old and is seen for Reason: ROUTINE / Spl. Instructions: / History: . COMPARISON: May 17, 2019 TECHNIQUE: CC and MLO views of both breasts were obtained. Images were processed by the [employer] computer-aided detection system. DENSITY: There are scattered fibroglandular densities. FINDINGS: No developing mass, suspicious calcifications or architectural distortion. IMPRESSION: Negative. No evidence of malignancy. Recommend annual screening mammograms per [employer] guidelines. She will be due in one year. BI-RADS category 1 Negative Patient entered into a reminder system for annual screening mammogram. Electronically signed by: Natan Jenkins DO (10/25/2020 11:01 AM) [id number]
== END ==
LOC: MAMMO 08:50
PROVIDERS: ATTEND Family Medicine
DX: Z12.31 Encounter for screening mammogram for malignant neoplasm of breast (principal)
CPT/HCPCS: 77063; 77067

== ENCOUNTER → 2020-11-30 | Outpatient (CLI) | payer MEDICARE ==
[2020-04-25 11:24] VITALS: BP 157/81
--- NOTE | 2020-11-30 13:13 | RAD ---
EXAM: ULTRASOUND SOFT TISSUE NECK CLINICAL HISTORY: Right-sided neck pain with swallowing. Enlarged lymph node. COMPARISON: None available. TECHNIQUE: Ultrasound examination of the right neck was performed FINDINGS: The right thyroid lobe is normal in appearance. There is no soft tissue mass or abnormal lymph nodes in the visualized portion of the right neck. IMPRESSION: No soft tissue mass or lymphadenopathy in the visualized portion of the right neck. Electronically signed by: Zeina Hill MD (11/30/2020 1:11 PM) [id number]
== END ==
LOC: US 08:20
PROVIDERS: ATTEND Nurse Practitioner Gerontology
DX: R59.0 Localized enlarged lymph nodes (principal)
CPT/HCPCS: 76536

== ENCOUNTER 2020-12-16 11:23 | Emergency (ER) | payer MEDICARE ==
[~2020-12-16] VITALS: Ht 167.6 cm; Wt 77.2 kg
[~2020-12-16 11:23] MED LIST changes: +DOCU-148 PO; -DOCU-153 PO
--- NOTE | 2020-12-16 12:07 | PHYS DOC ---
Past Medical History Past Medical History: Diabetes-Type II, GERD, Hypertension, Hypothyroid Additional Past Medical Histor: tinnitis Past Surgical History: Hysterectomy, Other Additional Past Surgical Histo: thyroidectomy; hemorrhoidectomy Smoking Status: Never Smoker Alcohol Use: None Drug Use: None General Adult EDM: Chief Complaint: LOWER EXTREMITY SWELLING HPI: HPI: Patient is a 80 year old female who presented to the ER for evaluation of pain on the bottom of her left foot since 2 days ago. Patient said the pain became more more painful since last night, hurt to walk on her left foot. Patient denies any injury. Patient denies any left swelling, no chest pain, no trouble breathing, no cough or fever. Review of Systems: Review of Systems: Constitutional: Denies fever or chills. [] Eyes: Denies change in visual acuity. [] HENT: Denies nasal congestion or sore throat. [] Respiratory: Denies cough or shortness of breath. [] Cardiovascular: Denies chest pain or edema. [] GI: Denies abdominal pain, nausea, vomiting, bloody stools or diarrhea. [] : Denies dysuria. [] Musculoskeletal: Denies back pain or joint pain. Positive for pain on left foot. Integument: Denies rash. [] Neurologic: Denies headache, focal weakness or sensory changes. [] Endocrine: Denies polyuria or polydipsia. [] Lymphatic: Denies swollen glands. [] Psychiatric: Denies depression or anxiety. [] Heart Score: C/O Chest Pain: N/A Risk Factors: Risk Factors: DM, Current or recent (<one month) smoker, HTN, HLP, family history of CAD, obesity. Risk Scores: Score 0 - 3: 2.5% MACE over next 6 weeks - Discharge Home Score 4 - 6: 20.3% MACE over next 6 weeks - Admit for Clinical Observation Score 7 - 10: 72.7% MACE over next 6 weeks - Early Invasive Strategies Allergies: Allergies: Allergies Coded Allergies Type Severity Reaction Last Updated Verified Cephalexin Monohydrate Allergy Intermediate Rash 09/15/18 Yes Penicillins Allergy Intermediate Rash 09/15/18 Yes doxycycline Allergy Intermediate Rash 09/15/18 Yes Physical Exam: PE: Constitutional: Well developed, well nourished, no acute distress, non-toxic appearance. [] HENT: Normocephalic, atraumatic, bilateral external ears normal, oropharynx moist, no oral exudates, nose normal. [] Eyes: PERRLA, EOMI, conjunctiva normal, no discharge. [] Neck: Normal range of motion, no tenderness, supple, no stridor. [] Cardiovascular:Heart rate regular rhythm, no murmur [] Lungs & Thorax: Bilateral breath sounds clear to auscultation [] Abdomen: Bowel sounds normal, soft, no tenderness, no masses, no pulsatile masses. [] Skin: Warm, dry, no erythema, no rash. [] Back: No tenderness, no CVA tenderness. [] Extremities: there is tenderness along the plantar of left foot, warm to touch, no swelling,good dorsalid pedis pulse. No calf swelling, no calf tenderness to palpation. Neurologic: Alert and oriented X 3, normal motor function, normal sensory function, no focal deficits noted. [] Psychologic: Affect normal, judgement normal, mood normal. [] Current Patient Data: Vital Signs: Vital Signs Date Time Temp Pulse Resp B/P (MAP) Pulse Ox O2 Delivery O2 Flow Rate FiO2 12/16/20 11:25 98.1 85 18 185/79 (106) 98 Room Air 98.1 EKG: EKG: [] Radiology/Procedures: Radiology/Procedures: [][facility] [address] [place], [place] [id number] IMAGING REPORT Signed PATIENT: KEATON TIMMONS ACCOUNT: [id number] : 1940 LOCATION: ER AGE: 80 SEX: F EXAM STATUS: PRE ER ORD. PHYSICIAN: RADHA CARL DO REASON: left foot pain since Thursday PROCEDURE: FOOT LEFT 3V EXAM: 3 views of the left foot DATE: 12/16/2020 12:25 PM INDICATION: Reason: left foot pain since Thursday / Spl. Instructions: / History: COMPARISON: No Prior FINDINGS: No acute fracture or dislocation. Hallux valgus with hallux MTP joint degenerative change. Calcaneal enthesophytes. Midfoot degenerative changes with small osteophytes. Moderate forefoot soft tissue swelling. IMPRESSION: 1. No acute fracture or dislocation. 2. Calcaneal enthesophytes 3. Hallux valgus with hallux MTP joint degenerative change Electronically signed by: Cameron Amezquita MD (12/16/2020 1:08 PM) [facility] DICTATED and SIGNED BY: CAMERON AMEZQUITA MD DATE: 12/16/20 [id number] 0 Course & Med Decision Making: Course & Med Decision Making Pertinent Labs and Imaging studies reviewed. (See chart for details) Patient is a 80-year-old female who present to ER due to pain on the bottom of her left foot, x-ray did not show any acute problem, patient mostly have plantar fasciitis, patient was given Toradol and Solu-Medrol in ER, patient will be dis charged home, she was given the phone number of the child care associate here for follow- up on Thursday. Dragon Disclaimer: Dragon Disclaimer: This electronic medical record was generated, in whole or in part, using a voice recognition dictation system. Departure Departure Impression: Primary Impression: Plantar fasciitis of left foot Disposition: HOME / SELF CARE / HOMELESS Condition: STABLE Referrals: MARY MONSIVAIS MD (PCP) Follow up with your doctor in 2 days for reevaluation JOSH YBARRA DPM Please call this child care associate for follow up on Thursday or THURSDAY. Patient Instructions: Plantar Fasciitis Additional Instructions: Thank you for visiting our Emergency Department. We appreciate you trusting us with your care. If any additional problems come up don't hesitate to return to visit us. Please follow up with your primary care provider so they can plan additional care if needed and know about the problem that you had. If symptoms worsen come back to the Emergency Department. Any concerning symptoms that start such as chest pain, shortness of air, weakness or numbness on one side of the body, running high fevers or any other concerning symptoms return to the ER. Scripts Tramadol Hcl (TRAMADOL HCL) 50 Mg Tablet 50 MG PO Q6HRS PRN for PAIN, #15 TAB Prov: RADHA CARL DO 12/16/20 Prednisone (PREDNISONE) 20 Mg Tablet 1 TAB PO DAILY for 7 Days, #7 TAB Prov: RADHA CARL DO 12/16/20 RADHA CARL DO Dec 16, 2020 12:07
[2020-12-16] MEDS ORDERED: methylPREDNISolone SOD SUCC PF 125 MG/2 ML VIAL. IM ONE (13:00)
[2020-12-16] MEDS ORDERED: KETOROLAC 30 MG/ML VIAL. IM ONE (13:00)
--- NOTE | 2020-12-16 13:10 | RAD ---
EXAM: 3 views of the left foot DATE: 12/16/2020 12:25 PM INDICATION: Reason: left foot pain since Thursday / . Instructions: / History: COMPARISON: No Prior FINDINGS: No acute fracture or dislocation. Hallux valgus with hallux MTP joint degenerative change. Calcaneal enthesophytes. Midfoot degenerative changes with small osteophytes. Moderate forefoot soft tissue swe lling. IMPRESSION: 1. No acute fracture or dislocation. 2. Calcaneal enthesophytes 3. Hallux valgus with hallux MTP joint degenerative change Electronically signed by: Cameron Ngo MD (12/16/2020 1:08 PM) [facility]
[2020-12-16 14:08] VITALS: BP 143/68
[2020-12-16] MEDS ORDERED: TRAM50TA PO (14:20)
[2020-12-16] MEDS ORDERED: PRED20TA PO (14:20)
== END 2020-12-16 14:35 | disposition home or self-care (01) ==
LOC: ER 11:23
DX: M72.2 Plantar fascial fibromatosis (principal); E11.9 Type 2 diabetes mellitus without complications; K21.9 Gastro-esophageal reflux disease without esophagitis; I10 Essential (primary) hypertension; E03.9 Hypothyroidism, unspecified; Z88.0 Allergy status to penicillin; Z88.1 Allergy status to other antibiotic agents
CPT/HCPCS: 73630; 96372; 99285; J1885; J2930